=== PATIENT | female | born 1960 | race African-American/Black ===

== ENCOUNTER → 2018-04-02 08:10 | Outpatient (CLI) | payer BC, SELFPAY ==
[2018-04-02 10:39] LABS: ALB/GLOB Ratio 0.7 RATIO (0.9-2.4); AST(SGOT) 19 U/L (15-37); Alanine Aminotransfer ALT/SGPT 31 U/L (13-56); Albumin, Serum 3.3 g/dL (3.2-5.0); Alkaline Phosphatase 97 U/L (45-117); Anion Gap 11 (5-15); BUN 14 mg/dL (7-18); BUN/Creat Ratio 16.8 RATIO (10-20); Calcium,Total 8.8 mg/dL (8.5-10.1); Chloride 105 mmol/L (98-107); Cholesterol 155 mg/dL (200); Creatinine, Serum 0.83 mg/dL (0.55-1.02); EST Glomerular Filtration Rate 75 mL/min (>60); Est Glom Filt Rate - Afr Amer 90 mL/min (>60); Globulin 4.8 g/dL (2.2-4.2); Glucose 168 mg/dL (74-106); High Density Lipoprotein 46 mg/dL; Potassium 3.9 mmol/L (3.5-5.1); Protein, Total 8.1 g/dL (6.4-8.2); Sodium Level 142 mmol/L (136-145); Thyroid Stim Hormone (TSH) 1.79 uIU/mL (0.358-3.74); Triglycerides 133 mg/dL; Uric Acid 6.8 mg/dL (2.6-6.0); Very Low Density Lipoprotein 27 mg/dL (5-40)
== END ==
PROVIDERS: Family Provider Family Medicine; PCP Family Medicine; Visit Provider Family Medicine
DX: E11.9 Type 2 diabetes mellitus without complications (principal); M10.9 Gout, unspecified
CPT/HCPCS: 36415; 80053; 80061; 84443; 84550

== ENCOUNTER → 2018-10-01 09:47 | Outpatient (CLI) | payer BC, SELFPAY ==
[2018-10-01 13:19] LABS: ALB/GLOB Ratio 0.9 RATIO (0.9-2.4); AST(SGOT) 16 U/L (15-37); Alanine Aminotransfer ALT/SGPT 30 U/L (13-56); Albumin, Serum 3.6 g/dL (3.2-5.0); Alkaline Phosphatase 89 U/L (45-117); Anion Gap 8 (5-15); BUN 9 mg/dL (7-18); Calcium,Total 8.7 mg/dL (8.5-10.1); Chloride 106 mmol/L (98-107); Cholesterol 134 mg/dL (200); Creatinine, Serum 0.69 mg/dL (0.55-1.02); EST Glomerular Filtration Rate 92 mL/min (>60); Est Glom Filt Rate - Afr Amer 112 mL/min (>60); Globulin 4.2 g/dL (2.2-4.2); Glucose 128 mg/dL (74-106); High Density Lipoprotein 50 mg/dL; Protein, Total 7.8 g/dL (6.4-8.2); Sodium Level 141 mmol/L (136-145); Triglycerides 123 mg/dL; Very Low Density Lipoprotein 25 mg/dL (5-40)
== END ==
PROVIDERS: Family Provider Family Medicine; PCP Family Medicine; Referring Provider Family Medicine; Visit Provider Family Medicine
DX: E11.9 Type 2 diabetes mellitus without complications (principal)
CPT/HCPCS: 36415; 80053; 80061

== ENCOUNTER → 2019-08-17 07:13 | Outpatient (CLI) | payer BC, SELFPAY ==
[2019-08-17 10:58] LABS: ALB/GLOB Ratio 0.7 RATIO (0.9-2.4); AST(SGOT) 31 U/L (15-37); Alanine Aminotransfer ALT/SGPT 48 U/L (13-56); Albumin, Serum 3.3 g/dL (3.2-5.0); Alkaline Phosphatase 64 U/L (45-117); Anion Gap 6 (5-15); BUN 7 mg/dL (7-18); BUN/Creat Ratio 8.4 RATIO (10-20); Calcium,Total 8.8 mg/dL (8.5-10.1); Chloride 108 mmol/L (98-107); Cholesterol 122 mg/dL (200); Creatinine, Serum 0.83 mg/dL (0.55-1.02); EST Glomerular Filtration Rate 74 mL/min (>60); Est Glom Filt Rate - Afr Amer 90 mL/min (>60); Globulin 4.8 g/dL (2.2-4.2); Glucose 137 mg/dL (74-106); High Density Lipoprotein 45 mg/dL; Potassium 3.5 mmol/L (3.5-5.1); Protein, Total 8.1 g/dL (6.4-8.2); Sodium Level 141 mmol/L (136-145); Thyroid Stim Hormone (TSH) 1.99 uIU/mL (0.358-3.74); Triglycerides 124 mg/dL; Uric Acid 5.6 mg/dL (2.6-6.0); Very Low Density Lipoprotein 25 mg/dL (5-40)
== END ==
LOC: MTLAB 07:14
PROVIDERS: PCP Family Medicine; Referring Provider Family Medicine; Visit Provider Family Medicine
DX: E11.9 Type 2 diabetes mellitus without complications (principal); M10.9 Gout, unspecified
CPT/HCPCS: 36415; 80053; 80061; 84443; 84550

== ENCOUNTER → 2022-01-12 | Outpatient (CLI) | payer BC, SELFPAY ==
--- NOTE | 2022-01-12 12:19 | BI_ITS ---
MAMMOGRAPHY - BILATERAL SCREENING REASON FOR EXAM: Female, 61 years old. Routine annual screening examination. PERTINENT HISTORY: Sister with breast cancer. History of prior right stereotactic breast biopsy. TECHNIQUE: Digital bilateral breast leela (3D mammographic acquisition) in the CC and MLO projections. 2-D mediolateral oblique (MLO) and craniocaudad (CC) views of both breasts were obtained. CAD: Full Field Digital Mammography with Computer Added Detection was performed. COMPARISON: Comparison is made with prior examination dated 05/24/2015. FINDINGS: Breast Composition: There are scattered areas of fibroglandular density. There are no dominant masses or suspicious calcifications. Stable benign-appearing bilateral axillary lymph nodes. A tissue clip marker is seen in the slightly upper lateral aspect of the right breast. No other significant abnormalities are identified. There has been no significant change since the prior study. BI/SCRN MAMM (CAD)W/LEELA BILAT IMPRESSION: Stable bilateral screening mammogram. Yearly follow-up mammogram recommended. (A) ASSESSMENT CATEGORY: BIRADS Category 2: Benign. A letter regarding these results will be sent to the patient by the facility within 30 days. Approximately 10% of breast cancers are not detected by mammography. A normal mammogram should not delay biopsy of a clinically suspicious abnormality. [id number] Electronically Signed: Dash Tony MD at 13:50 EDT ,
== END | disposition home or self-care (01) ==
PROVIDERS: PCP Family Medicine; Visit Provider Family Medicine
DX: Z12.31 Encounter for screening mammogram for malignant neoplasm of breast (principal)
CPT/HCPCS: 77063; 77067

== ENCOUNTER → 2022-01-16 | Outpatient (CLI) | payer BC, SELFPAY ==
[2022-01-16 12:18] LABS: Hematocrit 38.3 % (37-47); Hemoglobin 12.2 g/dL (12.0-15.0); Mean Corp Hgb Conc 31.9 g/dL (32-36); Mean Corpuscular Hgb 28.6 pg (27.0-32.0); Mean Corpuscular Volume 89.7 fL (81-99); Mean Platelet Vol. 12.1 fl (6.2-12.0); Platelet Count 205 K/mm3 (150-450); RBC Distribution Width CV 13.8 % (11.6-14.6); RBC Distribution Width SD 45.1 fl (35.1-43.9); Red Blood Count 4.27 M/mm3 (4.2-5.4); White Blood Count 7.1 K/mm3 (4.4-11.0)
[2022-01-16 12:37] LABS: Vitamin B12 822 pg/mL (211-911); Vitamin D,25 Hydroxy 90.8 ng/mL
[2022-01-16 12:42] LABS: ALB/GLOB Ratio 0.7 RATIO (0.9-2.4); AST(SGOT) 24 U/L (15-37); Alanine Aminotransfer ALT/SGPT 37 U/L (13-56); Albumin, Serum 3.3 g/dL (3.2-5.0); Alkaline Phosphatase 67 U/L (45-117); Anion Gap 8 (5-15); BUN 18 mg/dL (7-18); BUN/Creat Ratio 19.2 RATIO (10-20); Chloride 103 mmol/L (98-107); Cholesterol 153 mg/dL (200); Creatinine, Serum 0.94 mg/dL (0.55-1.02); EST Glomerular Filtration Rate 65 mL/min (>60); Est Glom Filt Rate - Afr Amer 78 mL/min (>60); Globulin 4.7 g/dL (2.2-4.2); Glucose 177 mg/dL (74-106); High Density Lipoprotein 47 mg/dL; Potassium 3.8 mmol/L (3.5-5.1); Sodium Level 138 mmol/L (136-145); Thyroid Stim Hormone (TSH) 2.16 uIU/mL (0.358-3.74); Triglycerides 182 mg/dL; Very Low Density Lipoprotein 36 mg/dL (5-40)
== END | disposition home or self-care (01) ==
LOC: MFPLAB 08:28
PROVIDERS: PCP Family Medicine; Visit Provider Family Medicine
DX: E11.59 Type 2 diabetes mellitus with other circulatory complications (principal); E11.65 Type 2 diabetes mellitus with hyperglycemia; M10.9 Gout, unspecified; E55.9 Vitamin D deficiency, unspecified
CPT/HCPCS: 36415; 80053; 80061; 82306; 82607; 84443; 84550; 85027

== ENCOUNTER → 2022-05-16 | Outpatient (CLI) | payer BC, SELFPAY ==
[2022-05-16 10:37] LABS: Vitamin B12 650 pg/mL (211-911); Vitamin D,25 Hydroxy 90.9 ng/mL
[2022-05-16 10:52] LABS: ALB/GLOB Ratio 0.7 RATIO (0.9-2.4); AST(SGOT) 18 U/L (15-37); Alanine Aminotransfer ALT/SGPT 27 U/L (13-56); Albumin, Serum 3.5 g/dL (3.2-5.0); Alkaline Phosphatase 67 U/L (45-117); Anion Gap 6 (5-15); BUN 19 mg/dL (7-18); BUN/Creat Ratio 20.5 RATIO (10-20); Calcium,Total 9.5 mg/dL (8.5-10.1); Chloride 105 mmol/L (98-107); Creatinine, Serum 0.93 mg/dL (0.55-1.02); EST Glomerular Filtration Rate 65 mL/min (>60); Est Glom Filt Rate - Afr Amer 79 mL/min (>60); Globulin 4.7 g/dL (2.2-4.2); Glucose 112 mg/dL (74-106); Potassium 3.9 mmol/L (3.5-5.1); Protein, Total 8.2 g/dL (6.4-8.2); Sodium Level 138 mmol/L (136-145); Uric Acid 8.6 mg/dL (2.6-6.0)
== END | disposition home or self-care (01) ==
LOC: MFPLAB 08:59
PROVIDERS: PCP Family Medicine; Referring Provider Family Medicine; Visit Provider Family Medicine
DX: I10 Essential (primary) hypertension (principal); E55.9 Vitamin D deficiency, unspecified
CPT/HCPCS: 36415; 80053; 82306; 82607; 84550

== ENCOUNTER → 2022-11-14 | Outpatient (CLI) | payer BC, SELFPAY ==
[2022-11-14 11:15] LABS: ALB/GLOB Ratio 0.7 RATIO (0.9-2.4); AST(SGOT) 24 U/L (15-37); Alanine Aminotransfer ALT/SGPT 35 U/L (13-56); Albumin, Serum 3.4 g/dL (3.2-5.0); Alkaline Phosphatase 75 U/L (45-117); Anion Gap 5 (5-15); BUN 15 mg/dL (7-18); Calcium,Total 9.7 mg/dL (8.5-10.1); Chloride 104 mmol/L (98-107); Cholesterol 170 mg/dL (200); Creatinine, Serum 0.94 mg/dL (0.55-1.02); EST Glomerular Filtration Rate 64 mL/min (>60); Est Glom Filt Rate - Afr Amer 78 mL/min (>60); Globulin 4.8 g/dL (2.2-4.2); Glucose 109 mg/dL (74-106); High Density Lipoprotein 61 mg/dL; Protein, Total 8.2 g/dL (6.4-8.2); Sodium Level 136 mmol/L (136-145); Thyroid Stim Hormone (TSH) 1.77 uIU/mL (0.358-3.74); Triglycerides 97 mg/dL; Uric Acid 5.2 mg/dL (2.6-6.0); Very Low Density Lipoprotein 19 mg/dL (5-40)
== END | disposition home or self-care (01) ==
LOC: MFPLAB 08:53
PROVIDERS: PCP Family Medicine; Visit Provider Family Medicine
DX: M10.9 Gout, unspecified (principal)
CPT/HCPCS: 36415; 80053; 80061; 84443; 84550

== ENCOUNTER → 2023-05-22 | Outpatient (CLI) | payer BC, SELFPAY ==
[2023-05-22 12:52] LABS: Microalbumin,Random Urine 16.9 mg/L (NO RANGE EST.)
[2023-05-22 12:56] LABS: Vitamin B12 625 pg/mL (211-911); Vitamin D,25 Hydroxy 77.8 ng/mL
[2023-05-22 13:08] LABS: Anion Gap 6 (5-15); BUN 18 mg/dL (7-18); BUN/Creat Ratio 20.7 RATIO (10-20); Calcium,Total 9.4 mg/dL (8.5-10.1); Chloride 106 mmol/L (98-107); Creatinine, Serum 0.87 mg/dL (0.55-1.02); EST Glomerular Filtration Rate 70 mL/min (>60); Est Glom Filt Rate - Afr Amer 84 mL/min (>60); Glucose 111 mg/dL (74-106); Sodium Level 140 mmol/L (136-145); Thyroid Stim Hormone (TSH) 1.46 uIU/mL (0.358-3.74)
== END | disposition home or self-care (01) ==
PROVIDERS: PCP Family Medicine; Referring Provider Family Medicine; Visit Provider Family Medicine
DX: Z00.00 Encounter for general adult medical examination without abnormal findings (principal); E55.9 Vitamin D deficiency, unspecified; E53.8 Deficiency of other specified B group vitamins
CPT/HCPCS: 36415; 80048; 82043; 82306; 82607; 84443

== ENCOUNTER → 2023-10-03 | Outpatient (CLI) | payer BC, SELFPAY ==
[2023-10-03 13:55] LABS: White Blood Cells 0 SEEN /hpf (0-5)
[2023-10-03 13:57] LABS: Mucous, Urine 0 SEEN /hpf (<or=2+)
[2023-10-03 15:45] LABS: Color, Urine Yellow (Yellow); Glucose, Dipstick Normal (Normal); Ketone-Dipstick Negative (Negative); Leukocyte Esterase-Dipstick 25 /ul (Negative); Nitrite-Dipstick Negative (Negative); Occult Blood-Urine 250 /ul (Negative); Protein-Dipstick 15 mg/dl (Negative); Specific Gravity, Urine 1.015 (1.002-1.030); Urine Bilirubin Dipstick Negative (Negative); Urine Clarity Sl. Cloudy (Clear); Urine Urobilinogen Normal (Normal); Urine pH 6.5 (5.0 - 8.0)
[2023-10-03 15:57] LABS: Bacteria RARE /hpf (None Seen); Red Blood Cells-Urine 25-50 SEEN /hpf (0-5); Squamous Epithelial Cells - UA 0-5 SEEN /hpf (5-10)
== END | disposition home or self-care (01) ==
LOC: MFPLAB 13:55
PROVIDERS: PCP Family Medicine; Visit Provider Family Medicine
DX: R31.9 Hematuria, unspecified (principal)
CPT/HCPCS: 36415; 81001; 87086; 87088

== ENCOUNTER → 2024-06-16 | Outpatient (CLI) | payer BC, SELFPAY ==
[2024-06-16 12:58] LABS: Vitamin B12 1006 pg/mL (211-911); Vitamin D,25 Hydroxy 77.9 ng/mL
[2024-06-16 13:10] LABS: ALB/GLOB Ratio 0.8 RATIO (0.9-2.4); AST(SGOT) 24 U/L (15-37); Alanine Aminotransfer ALT/SGPT 29 U/L (13-56); Albumin, Serum 3.6 g/dL (3.2-5.0); Alkaline Phosphatase 79 U/L (45-117); Anion Gap 6 (5-15); BUN 10 mg/dL (7-18); BUN/Creat Ratio 12.1 RATIO (10-20); Calcium,Total 9.1 mg/dL (8.5-10.1); Chloride 108 mmol/L (98-107); Cholesterol 148 mg/dL (200); Creatinine, Serum 0.82 mg/dL (0.55-1.02); EST Glomerular Filtration Rate 74 mL/min (>60); Est Glom Filt Rate - Afr Amer 90 mL/min (>60); Globulin 4.6 g/dL (2.2-4.2); Glucose 76 mg/dL (74-106); High Density Lipoprotein 63 mg/dL; Potassium 3.8 mmol/L (3.5-5.1); Protein, Total 8.2 g/dL (6.4-8.2); Sodium Level 140 mmol/L (136-145); Triglycerides 113 mg/dL; Uric Acid 4.6 mg/dL (2.6-6.0); Very Low Density Lipoprotein 23 mg/dL (5-40)
== END | disposition home or self-care (01) ==
PROVIDERS: PCP Family Medicine; Visit Provider Family Medicine
DX: E11.22 Type 2 diabetes mellitus with diabetic chronic kidney disease (principal); E55.9 Vitamin D deficiency, unspecified; M10.9 Gout, unspecified; N18.9 Chronic kidney disease, unspecified
CPT/HCPCS: 36415; 80053; 80061; 82306; 82607; 84443; 84550

== ENCOUNTER 2025-02-15 08:00 | Outpatient (RCR) | payer BC, SELFPAY ==
[2025-02-15 08:23] VITALS: BP 189/94; PULSE 83; RESP 14; TEMP 36.4
--- NOTE | 2025-02-15 09:02 | HP.PCM_ITS ---
History of Present Illness Date of Service: 02/15/25 History of Wound: The patient is a 64-year-old female presenting with hidr adenitis suppurativa. The condition involves purulent drainage from lesions on the right upper back, persisting for about two months. She has been seeing Dr. Guerrero from [facility] dermatology for the condition, and 2 weeks ago he began her on a course of oral doxycycline and topical clindamycin gel. He referred her to us for definitive management of the sinus tracts. She has a history of diabetes mellitus, with an A1c of 6.7, managed with metformin and Ozempic. Her hypertension is controlled with lisinopril, though she missed her dose on the day of the visit, leading to elevated readings. ROS: - Dermatological: Reports purulent drainage from lesions on the right upper back. - Endocrine: Reports diabetes mellitus, denies recent hypoglycemic episodes. - Cardiovascular: Reports hypertension, denies chest pain or palpitations. Attestation: Documentation on this patient encounter was supported using ambient scribe technology/ voice AI technology. The patient consented to recording for the purpose of documenting the encounter. Provider reviewed content of the generated note prior to signature. [facility] Allergy/AdvReac Type Severity Reaction Status Date / Time acetaminophen (From Percocet) Allergy Intermediate Hives Verified 02/15/25 08:35 oxycodone (From Percocet) Allergy Intermediate Hives Verified 02/15/25 08:35 Vital Signs Vital Signs Vital Signs: 02/15/25 08:23 Temperature 97.6 F L Temperature Source Temporal Pulse Rate 83 Respiratory Rate 14 Blood Pressure 189/94 H Blood Pressure Mean 125 Blood Pressure Source Monitor Blood Pressure Position Semi-Fowlers Blood Pressure Location Right Arm Physical Exam Narrative - Skin: 4 x 3 cm area of induration and fluctuance with purulent drainage on the right upper back, consistent with hidradenitis suppurativa. Debridement Note Debridement Note Post-Debridement Measurements and Additional Note: Post-Debridement Measurements/Treatment - Nurse 1 - General Ulcer Assessment Start: 02/15/25 08:23 Freq: Status: Active Protocol: JOHNNIE Activity Type Activity Date Activity User E-sign Co-sign Detail Recorded Client Recorded Date Recorded By Document 02/15/25 08:23 ML [id number] 02/15/25 08:30 ML 02/15/25 08:23 WC - Today's Visit Information Type of service Initial Visit Arrival Mode Ambulatory Patient Identification Verified (Name & Yes ) Patient Requires Transmission-Based No Precautions Vital Signs Temperature (97.8 F-99.1 F) 97.6 F L Temperature Source Temporal Pulse Rate (60-100) 83 Pulse Location Monitor Respiratory Rate (12-18) 14 Respiratory rate source Monitor Blood Pressure (90/60-120/80) 189/94 H Blood Pressure Mean 125 Source Monitor Position Semi-Fowlers Blood Pressure Location Right Arm Pain Scale: 0-10 Numeric Is Patient Pain Free? Yes - Nurse 1 - General Ulcer Measurement Start: 02/15/25 08:23 Freq: Status: Active Protocol: Activity Type Activity Date Activity User E-sign Co-sign Detail Recorded Client Recorded Date Recorded By Document 02/15/25 08:23 ML [id number] 02/15/25 08:30 ML 02/15/25 08:23 Wound Center Nurse 1 Right upper back -Current Size (cm) - Length 0.1 -Current Size (cm) - Width 0.1 -Current Size (cm) - Depth 0.2 -Total Square Cm 0.01 -Exudate Type Yellow/Green -Granulation Amt Medium (34-66%) -Necrotic Tissue Type Adherent Slough -Texture (Lorena-wound Skin Appearance) Assessed -Moisture (Lorena-wound Skin Appearance) Assessed -Color (Lorena-wound Skin Appearance) Assessed -Temperature (Lorena-wound Skin No Abnormality Appearance) (Pt Warm) -Tenderness on Palpation (Lorena-wound Yes Skin Appearance) -Ulcer Cleansing Rinsed/ Irrigated with Saline -Foul Odor after Cleansing No -Anesthetic Used 5% Lidocaine Gel WC - Nurse 2 - General Ulcer CM Notes Start: 02/15/25 08:23 Freq: Status: Active Protocol: Activity Type Activity Date Activity User E-sign Co-sign Detail Recorded Client Recorded Date Recorded By Document 02/15/25 08:38 DS [id number] 02/15/25 08:47 DS 02/15/25 08:38 Wound Center Nurse 2 -Time 08:38 -Correct Patient Yes -Correct Side, Site, Position Yes -Procedure Performed No -Post Debridement (cm) - Length 4.0 -Post Debridement (cm) - Width 3.0 -Total Square (Post) (cm) 12.00 -Area of Debridement (cm) - Length 4.0 -Area of Debridement (cm) - Width 3.0 -Total Square (Area) (cm) 12.00 -Tunneling No -Undermining/Tunneling No -Circular Undermining No -Wound/Ulcer Outcome Not Healed -Foul Odor after Cleansing No -Bioengineered Tissue No Pain Scale: 0-10 Numeric Is Patient Pain Free? Yes WC - Nurse 3 - General Ulcer D/C NN Start: 02/15/25 08:23 Freq: Status: Active Protocol: Activity Type Activity Date Activity User E-sign Co-sign Detail Recorded Client Recorded Date Recorded By Document 02/15/25 08:48 DS [id number] 02/15/25 08:48 DS 02/15/25 08:48 Wound Care Center Nurse 3 Right upper back -Primary Dressing Covered/Secured with Dry Gauze, Secured with Tape Pain Scale: 0-10 Numeric Is Patient Pain Free? Yes WC - Visit Discharge Discharge Condition Stable Ambulatory Status Ambulatory Transportation Private Auto Charges/Coding Visit Charges Office Visits / Consults: 85014 OV L3 New 30min Assessment/Plan Assessment/Plan (1) Hidradenitis suppurativa: CODE(S): L73.2 - Hidradenitis suppurativa PLAN: Plan Assessment and Plan The patient is a 64-year-old female with a history of hidradenitis suppurativa presenting with persistent lesions on the right upper back. The lesions are characterized by purulent drainage and have been present for approximately two months, despite antibiotic therapy with doxycycline. The patient also has diabet es mellitus, with a recent A1c of 6.7, managed with metformin and Ozempic, and hypertension managed with lisinopril, though she missed her dose on the day of the visit. 1. Hidradenitis Suppurativa The plan involves continuing doxycycline and maintaining dressing for drainage. A debridement procedure is considered to address the sinus tract and promote healing from the inside out. Follow-up is scheduled in two weeks to reassess the condition and potentially demonstrate wound care techniques to the patient's who could help with dressing changes after the opening of the wound bed. Patient is in agreement with this plan to defer debridement from today to the appointment in 2 weeks when her spouse could be taught wound care. She was given strict return precautions and told to go to the emergency department if she develops fevers chills or systemic signs of infection. At this point the area is a chronic scarred sinus tract from hidradenitis and not an acute abscess. 2. Diabetes Mellitus The patient's diabetes is managed with metformin and Ozempic, with a recent A1c of 6.7. No changes to the current management plan were discussed during the visit. 3. Hypertension I advised her to go to the emergency department today as her blood pressure was too elevated, however she elected to go home instead and take her medicine.
--- NOTE | 2025-02-15 09:02 | HP.PCM_ITS ---
History of Present Illness Date of Service: 02/15/25 History of Wound: The patient is a 64-year-old female presenting with hidr adenitis suppurativa. The condition involves purulent drainage from lesions on the right upper back, persisting for about two months. She has been seeing Dr. Guerrero from [facility] dermatology for the condition, and 2 weeks ago he began her on a course of oral doxycycline and topical clindamycin gel. He referred her to us for definitive management of the sinus tracts. She has a history of diabetes mellitus, with an A1c of 6.7, managed with metformin and Ozempic. Her hypertension is controlled with lisinopril, though she missed her dose on the day of the visit, leading to elevated readings. ROS: - Dermatological: Reports purulent drainage from lesions on the right upper back. - Endocrine: Reports diabetes mellitus, denies recent hypoglycemic episodes. - Cardiovascular: Reports hypertension, denies chest pain or palpitations. Attestation: Documentation on this patient encounter was supported using ambient scribe technology/ voice AI technology. The patient consented to recording for the purpose of documenting the encounter. Provider reviewed content of the generated note prior to signature. [facility] Allergy/AdvReac Type Severity Reaction Status Date / Time acetaminophen (From Percocet) Allergy Intermediate Hives Verified 02/15/25 08:35 oxycodone (From Percocet) Allergy Intermediate Hives Verified 02/15/25 08:35 Vital Signs Vital Signs Vital Signs: 02/15/25 08:23 Temperature 97.6 F L Temperature Source Temporal Pulse Rate 83 Respiratory Rate 14 Blood Pressure 189/94 H Blood Pressure Mean 125 Blood Pressure Source Monitor Blood Pressure Position Semi-Fowlers Blood Pressure Location Right Arm Physical Exam Narrative - Skin: 4 x 3 cm area of induration and fluctuance with purulent drainage on the right upper back, consistent with hidradenitis suppurativa. Debridement Note Debridement Note Post-Debridement Measurements and Additional Note: Post-Debridement Measurements/Treatment - Nurse 1 - General Ulcer Assessment Start: 02/15/25 08:23 Freq: Status: Active Protocol: JOHNNIE Activity Type Activity Date Activity User E-sign Co-sign Detail Recorded Client Recorded Date Recorded By Document 02/15/25 08:23 ML [id number] 02/15/25 08:30 ML 02/15/25 08:23 WC - Today's Visit Information Type of service Initial Visit Arrival Mode Ambulatory Patient Identification Verified (Name & Yes ) Patient Requires Transmission-Based No Precautions Vital Signs Temperature (97.8 F-99.1 F) 97.6 F L Temperature Source Temporal Pulse Rate (60-100) 83 Pulse Location Monitor Respiratory Rate (12-18) 14 Respiratory rate source Monitor Blood Pressure (90/60-120/80) 189/94 H Blood Pressure Mean 125 Source Monitor Position Semi-Fowlers Blood Pressure Location Right Arm Pain Scale: 0-10 Numeric Is Patient Pain Free? Yes - Nurse 1 - General Ulcer Measurement Start: 02/15/25 08:23 Freq: Status: Active Protocol: Activity Type Activity Date Activity User E-sign Co-sign Detail Recorded Client Recorded Date Recorded By Document 02/15/25 08:23 ML [id number] 02/15/25 08:30 ML 02/15/25 08:23 Wound Center Nurse 1 Right upper back -Current Size (cm) - Length 0.1 -Current Size (cm) - Width 0.1 -Current Size (cm) - Depth 0.2 -Total Square Cm 0.01 -Exudate Type Yellow/Green -Granulation Amt Medium (34-66%) -Necrotic Tissue Type Adherent Slough -Texture (Lorena-wound Skin Appearance) Assessed -Moisture (Lorena-wound Skin Appearance) Assessed -Color (Lorena-wound Skin Appearance) Assessed -Temperature (Lorena-wound Skin No Abnormality Appearance) (Pt Warm) -Tenderness on Palpation (Lorena-wound Yes Skin Appearance) -Ulcer Cleansing Rinsed/ Irrigated with Saline -Foul Odor after Cleansing No -Anesthetic Used 5% Lidocaine Gel WC - Nurse 2 - General Ulcer CM Notes Start: 02/15/25 08:23 Freq: Status: Active Protocol: Activity Type Activity Date Activity User E-sign Co-sign Detail Recorded Client Recorded Date Recorded By Document 02/15/25 08:38 DS [id number] 02/15/25 08:47 DS 02/15/25 08:38 Wound Center Nurse 2 -Time 08:38 -Correct Patient Yes -Correct Side, Site, Position Yes -Procedure Performed No -Post Debridement (cm) - Length 4.0 -Post Debridement (cm) - Width 3.0 -Total Square (Post) (cm) 12.00 -Area of Debridement (cm) - Length 4.0 -Area of Debridement (cm) - Width 3.0 -Total Square (Area) (cm) 12.00 -Tunneling No -Undermining/Tunneling No -Circular Undermining No -Wound/Ulcer Outcome Not Healed -Foul Odor after Cleansing No -Bioengineered Tissue No Pain Scale: 0-10 Numeric Is Patient Pain Free? Yes WC - Nurse 3 - General Ulcer D/C NN Start: 02/15/25 08:23 Freq: Status: Active Protocol: Activity Type Activity Date Activity User E-sign Co-sign Detail Recorded Client Recorded Date Recorded By Document 02/15/25 08:48 DS [id number] 02/15/25 08:48 DS 02/15/25 08:48 Wound Care Center Nurse 3 Right upper back -Primary Dressing Covered/Secured with Dry Gauze, Secured with Tape Pain Scale: 0-10 Numeric Is Patient Pain Free? Yes WC - Visit Discharge Discharge Condition Stable Ambulatory Status Ambulatory Transportation Private Auto Charges/Coding Visit Charges Office Visits / Consults: 76412 OV L3 New 30min Assessment/Plan Assessment/Plan (1) Hidradenitis suppurativa: CODE(S): L73.2 - Hidradenitis suppurativa PLAN: Plan Assessment and Plan The patient is a 64-year-old female with a history of hidradenitis suppurativa presenting with persistent lesions on the right upper back. The lesions are characterized by purulent drainage and have been present for approximately two months, despite antibiotic therapy with doxycycline. The patient also has diabet es mellitus, with a recent A1c of 6.7, managed with metformin and Ozempic, and hypertension managed with lisinopril, though she missed her dose on the day of the visit. 1. Hidradenitis Suppurativa The plan involves continuing doxycycline and maintaining dressing for drainage. A debridement procedure is considered to address the sinus tract and promote healing from the inside out. Follow-up is scheduled in two weeks to reassess the condition and potentially demonstrate wound care techniques to the patient's who could help with dressing changes after the opening of the wound bed. Patient is in agreement with this plan to defer debridement from today to the appointment in 2 weeks when her spouse could be taught wound care. She was given strict return precautions and told to go to the emergency department if she develops fevers chills or systemic signs of infection. At this point the area is a chronic scarred sinus tract from hidradenitis and not an acute abscess. 2. Diabetes Mellitus The patient's diabetes is managed with metformin and Ozempic, with a recent A1c of 6.7. No changes to the current management plan were discussed during the visit. 3. Hypertension I advised her to go to the emergency department today as her blood pressure was too elevated, however she elected to go home instead and take her medicine.
--- NOTE | 2025-02-16 09:25 | WC ---
PHOTO-RIGHT UPPER BACK 02/15/25
--- NOTE | 2025-02-16 09:25 | WC ---
PHOTO-RIGHT UPPER BACK 02/15/25
== END 2025-02-18 23:59 | disposition home or self-care (01) ==
LOC: WC 08:00
PROVIDERS: PCP Family Medicine; Referring Provider Dermatology; Visit Provider Surgery Plastic and Reconstructive Surgery
DX: L73.2 Hidradenitis suppurativa (principal); E11.9 Type 2 diabetes mellitus without complications; L90.5 Scar conditions and fibrosis of skin; I10 Essential (primary) hypertension; Z79.84 Long term (current) use of oral hypoglycemic drugs; Z79.85 Long-term (current) use of injectable non-insulin antidiabetic drugs; Z79.899 Other long term (current) drug therapy
CPT/HCPCS: 99213; G0463

== ENCOUNTER → 2025-02-23 | Outpatient (CLI) | payer BC, SELFPAY ==
--- NOTE | 2025-02-23 12:26 | US_ITS ---
PROCEDURE: BREAST LIMITED UNILATERAL 02/23/2025 REASON FOR EXAM: F, Age 65 y/o , ABNOMRAL MAMMOGRAM FROM [facility] ON 01/01/25 COMPARISON: Prior mammogram dated January 01, 2025.. TECHNIQUE: BREAST LIMITED UNILATERAL. The retroareolar region of the left breast was examined with ultrasound. FINDINGS: In the retroareolar region, there is a 6 mm x 10 mm x 5 mm cyst. Low-level echoes are seen within it. Percutaneous drainage recommended. US/Breast Limited Unilateral IMPRESSION: 6 mm x 10 mm x 5 mm cyst in the retroareolar region of the left breast with low -level echoes within it. Tissue sampling recommended. BI-RADS 4: SUSPICIOUS RECOMMENDATION: Biopsy Recommended Reading Location: [id number]
== END | disposition home or self-care (01) ==
LOC: OPUS 12:24
PROVIDERS: PCP Family Medicine; Referring Provider Family Medicine; Visit Provider Family Medicine
DX: R92.8 Other abnormal and inconclusive findings on diagnostic imaging of breast (principal)
CPT/HCPCS: 76642

== ENCOUNTER → 2025-03-02 | Outpatient (CLI) | payer BC, SELFPAY ==
--- NOTE | 2025-03-02 08:20 | BRBX_PTH ---
PATIENT: DEE HEALY LOC: [facility] U#:[id number] AGE/SX: 65/F ROOM: RE03/02/[address]: Dr. Dhaval Mccarthy MD : 1960 BED: DIS: 03/02/2025 SPEC #: [id number] RECD: 03/02/25 09:33 STATUS: MUNA REMiley #: [id number] HEBER: 03/02/25 08:[address]: Dhaval Mccarthy DEPT: SURGICAL PATHOLOGY RECD BY: Daniel Rehman ENTERED: 03/02/25 10:26 SP TYPE: BREAST BX OTHR DR: Dr. Wilian Sampson MD Tissues: A - Left breast, NOS Procedures: Surgery Specimen Level IV HEADER OPERATION: Left breast biopsy PRE-OP DIAGNOSIS: Left breast TISSUE SUBMITTED: A- Left breast tissue MICROSCOPIC DIAGNOSIS A. Left breast, core biopsy: - Fibroadipose tissue with scant breast elements and abundant blood clot. - Negative for malignancy. MICROSCOPIC DESCRIPTION Slides are reviewed. GROSS DESCRIPTION A. Received in formalin labeled with the patient's name and date of . Designated as L breast is a 2.6 x 1.5 x 0.2 cm aggregate of steiner tissue cores and clotted blood. Entirely submitted in 1 cassette. Cold ischemic time: <1-minuteFormalin fixation time: 11 hours, 10 minutes DE 03/02/2025 CPT:[id number]
--- OUTSIDE RECORDS SUMMARY | 2025-03-02 18:53 | XMS RPT_ITS | CCD ---
Author Organization [facility] Care Team Providers Care Painting Worker Name Role Phone PROVIDER, UNKNOWN Unavailable Unavailable Annalise Sampson Unavailable Unavailable Nina Howe Unavailable Unavailable PROVIDER, UNKNOWN Unavailable Unavailable Annalise Sampson Unavailable Unavailable Raymond Rogers Unavailable Unavailable PROVIDER, UNKNOWN Unavailable Unavailable Annalise Sampson Unavailable Unavailable Raymond Rogers Unavailable Unavailable Adrián GRIFFITH, Annalise Lei Primary Care Provider ANNALISE SAMPSON Primary Care UnavailANNALISE Wiseman Primary Care UnavailNINA Ricks Attending Unavailable Dr. Annalise Sampson MD Primary Care Provider Dr. Raul Poon MD Attending Provider Dr. Chava Guerrero MD Referring Provider Dr. Raul Poon MD Other Provider Dr. Annalise Sampson MD Attending Provider Dr. Annalise Sampson MD Referring Provider Annalise Sampson Primary Care Unavailable Annalise Sampson Attending Unavailable Chava Guerrero Referring Unavailable Raul Poon Attending Unavailable Annalise Sampson Primary Care Unavailable Annalise Sampson Primary Care Unavailable Chava Guerrero Referring Unavailable Raul Poon Attending Unavailable Chava Guerrero Referring Unavailable Raul Poon Consulting Unavailable Raul Poon Attending Unavailable Annalise Sampson Primary Care Unavailable Annalise Sampson Attending Unavailable Annalise Sampson Referring Unavailable Annalise Sampson Primary Care Unavailable Shari GRIFFITH, Dr. Puentes Attending Provider Allergies Allergy Classification Reported Allergen(s) Allergy Type Date of Onset Reaction(s) Facility (6 sources) Acetaminophen / oxyCODONE; Translations: [OXYCODONE-ACETAMI NOPHEN] Drug Allergy 05-07-2007 [facility] (3 sources) Acetaminophen Drug Allergy 02-15-2025 [facility] Comment on above: itching (3 sources) oxyCODONE Drug Allergy 02-15-2025 [facility] Comment on above: itching (1 source) Acetaminophen Drug Allergy 02-15-2025 [facility] (1 source) oxyCODONE Drug Allergy 02-15-2025 [facility] Medications Current Medications Medication Drug Class(es) Dates Sig (Normalized) Sig (Original) acetaminophen 500 mg / HYDROcodone bitartrate 5 mg oral tablet (5 sources) Opioid Agonist Start: 05-07-2007 take 1 tablet by mouth every four hours as needed acetaminophen-hydr ocodone 5-500 mg ORAL Tab 1 TO 2 PO Q 4 HOURS PRN 30 0 05/07/2007 Active allopurinol 300 mg oral tablet (8 sources) Xanthine Oxidase Inhibitor Start: 02-15-2025 take 1 tablet by mouth once daily Allopurinol 300 mg tablet Active 300 mg PO DAILY February 15, 2025 12:00am Start: 12-20-2015 allopurinol (Z YLOPRIM) 100 mg tablet 12/20/2015 Active amoxicillin 875 mg / clavulanate 125 mg oral tablet (1 source) Penicillin-class Antibacterial Start: 01-24-2025 End: 02-03-2025 take 1 tablet by mouth twice daily amoxicillin-clavulanate potassium (AUGMENTIN) 875-125 mg per tablet Indications: Cutaneous abscess of back excluding buttocks Take 1 tablet by mouth two times a day for 10 days. 20 tablet 01/24/2025 02/03/2025 Active ascorbic acid 500 mg oral tablet (5 sources) Vitamin C take 1 tablet by mouth once daily ascorbic acid, vitamin C, (VITAMIN C) 500 mg tablet Take 500 mg by mouth once daily. Active aspirin 81 mg delayed release oral tablet (5 sources) Platelet Aggregation Inhibitor, Nonsteroidal Anti-inflammatory Drug take 1 tablet by mouth once daily aspirin, enteric coated (ASPIRIN, ENTERIC COATED) 81 mg EC tablet Take 81 mg by mouth once daily. Active Biotin (5 sources) BIOTIN ORAL Take by mouth. Active BIOTIN ORAL Take by mouth. 0 Active cephalexin 500 mg oral capsule (10 sources) Cephalosporin Antibacterial Start: 09-13-2008 cephalexin monohydrate(KEFLEX 500 MG CAP) Take one(1) tablet four(4) times daily. 28 0 09/13/2008 Active Start: 06-29-2008 cephalexin mon ohydrate(KEFLEX 500 MG CAP) Take one(1) tablet four (4) times daily. 28 0 06/29/2008 Active cetirizine hydrochloride 10 mg oral capsule (5 sources) Histamine-1 Receptor Antagonist Cetirizine (ZYRTEC) 10 mg cap Take by mouth. Active cholecalciferol 0.05 mg oral tablet (1 source) Vitamin D take 1 tablet by mouth once daily cholecalciferol (VITAMIN D3) 50 mcg (2,000 unit) tablet Take 1 tablet by mouth once daily. Active CYANOCOBALAMIN, VITAMIN B-12, (VITAMIN B12 ORAL) (5 sources) CYANOCOBALAMIN, VITAMIN B-12, (VITAMIN B12 ORAL) Take by mouth. Active CYANOCOBALAMIN, VITAMIN B-12, (VITAMIN B12 ORAL) Take by mouth. 0 Active doxycycline monohydrate 50 mg oral capsule (4 sources) Tetracycline-class Drug Start: 02-15-2025 take 1 capsule by mouth once daily Doxycycline Monohydrate 50 mg capsule Active 50 mg PO DAILY February 15, 2025 12:00am Start: 12-06-2024 take 1 capsule by [facility] once daily doxycycline monohydrate (MONODOX) 50 mg capsule Take 50 mg by mouth once daily. 12/06/2024 Active Ginkgo biloba extract (5 sources) GINKGO BILOBA (G INKOBA ORAL) Take by mouth. Active GINKGO BILOBA (G INKOBA ORAL) Take by mouth. 0 Active 3 ml insulin detemir 100 unt/ml pen injector (5 sources) Insulin Analog Start: 01-05-2016 LEVEMIR FLEXTO UCH 100 unit/mL (3 mL) inpn injection 01/05/2016 Active KRILL OIL ORAL (5 sources) KRILL OIL ORAL T sanju by mouth. Active KRILL OIL ORAL T sanju by mouth. 0 Active lisinopril 40 mg oral tablet (4 sources) Angiotensin Converting Enzyme Inhibitor Start: 02-15-2025 take 1 tablet by mouth once daily Lisinopril 40 mg tablet Active 40 mg PO DAILY February 15, 2025 12:00am Start: 01-11-2025 take 1 tablet by key th once daily lisinopril (ZESTRIL) 40 mg tablet Take 1 tablet by mouth once daily. 01/11/2025 Active 24 hr metFORMIN hydrochloride 500 mg extended release oral tablet (8 sources) Biguanide Start: 02-15-2025 take 1 tablet by mouth once daily Metformin 500 mg tablet extended release 24 hr Active 500 mg PO DAILY February 15, 2025 12:00am Start: 12-13-2015 metFORMIN ER ( GLUCOPHAGE XR) 500 mg 24 hr tablet 12/13/2015 Active MULTI-VITAMIN ORAL (5 sources) MULTI-VITAMIN OR AL Take by mouth. Active MULTI-VITAMIN OR AL Take by mouth. 0 Active mupirocin 0.02 mg/mg topical ointment (4 sources) RNA Synthetase Inhibitor Antibacterial Start: 02-15-2025 Mupirocin 2 % ointment Active TOPICAL TWICE A DAY February 15, 2025 12:00am Start: 01-24-2025 End: 02-03-2025 mupirocin (BACTROBAN) 2 % oi ntment Indications: Cutaneous abscess of back excluding buttocks Apply 1 application to affected area two times a day for 10 days. 20 g 01/24/2025 02/03/2025 Active OTC NUTRITIONAL SUPPLEMENT (5 sources) OTC NUTRITIONAL SUPPLEMENT tumeric Active OTC NUTRITIONAL SUPPLEMENT tumeric 0 Active OZEMPIC 2 mg/dose (8 mg/3 mL) pen injector (1 source) Start: 01-18-2025 inject 2 mg by subcutaneous injection every week OZEMPIC 2 mg/dose (8 mg/3 mL) pen injector Inject 2 mg subcutaneously one time a week. 01/18/2025 Active pioglitazone 30 mg oral tablet (5 sources) Peroxisome Proliferator Receptor alpha Agonist, Peroxisome Proliferator Receptor gamma Agonist, Thiazolidinedione Start: 11-21-2015 pioglitazone (ACTOS) 30 mg tablet 11/21/2015 Active Potassium (5 sources) POTASSIUM ORAL Take by mouth. Active POTASSIUM ORAL T sanju by mouth. 0 Active Semaglutide (3 sources) Start: 02-15-2025 inject 1 mg by subcutaneous injection every week Semaglutide (Semaglutide 1 Mg/Dose (4 Mg/3 Ml) Subcutaneous Pen Injector) 1 mg/dose (4 mg/3 mL) pen injector Active mg SC EVERY WEEK February 15, 2025 12:00am ubidecarenone 100 mg oral capsule (1 source) Start: 04-21-2018 coenzyme Q10 ( COQ-10) 100 mg cap capsule Take 100 mg by mouth once daily. 04/21/2018 Active Completed/Discontinued Medications Medication Drug Class(es) Dates Sig (Normalized) Sig (Original) 0.65 ml exenatide 3.08 mg/ml pen injector (5 sources) GLP-1 Receptor Agonist Start: 12-15-2015 End: 01-24-2025 BYDUREON 2 mg/0.65 mL pnij 12/15/2015 01/24/2025 Discontinued (Course of therapy completed) hydroCHLOROthiazide 12.5 mg / lisinopril 20 mg oral tablet (5 sources) Thiazide Diuretic, Angiotensin Converting Enzyme Inhibitor Start: 12-20-2015 End: 01-24-2025 lisinopril-hydroc hlorothiazide (PRINZIDE,ZESTORE TIC) 20-12.5 mg per tablet 12/20/2015 01/24/2025 Discontinued (Course of therapy completed) Problems Problem Classification Problem Date Documented Da te Episodic/Chronic Diabetes mellitus with complications (1 source) Type 2 diabetes mellitus with diabetic chronic kidney disease; Translations: [Type 2 diabetes mellitus with diabetic chronic kidney disease] Onset: 07-16-2024 Chronic Nonmalignant breast conditions (2 sources) Breast lump; Translations: [Unspecified lump in the left breast, unspecified quadrant] 03-02-2025 Episodic Other screening for suspected conditions (not mental disorders or infectious disease) (6 sources) Mammography abnormal; Translations: [Other abnormal and inconclusive findings on diagnostic imaging of breast] Onset: 01-19-2016 01-19-2016 Episodic Other skin disorders (6 sources) Hidradenitis suppurativa; Translations: [Hidradenitis suppurativa] 02-15-2025 Episodic Other skin disorders (2 sources) Hidradenitis suppurativa; Translations: [Hidradenitis suppurativa] Onset: 02-19-2025 Episodic Skin and subcutaneous tissue infections (2 sources) Abscess of back, except buttock; Translations: [Cutaneous abscess of back [any part, except buttock]] Onset: 01-24-2025 01-24-2025 Episodic Results Test Name Value Interpretation Reference Range Facility Breast Limited Unilateralon 02-23-2025 Breast Limited Unilateral [facility] Imaging Services [address] [place] [id number] Breast Limited Unilateral MR#: [id number] Acct: [id number] Name: MARION DUNCAN Rep #: [id number] : 1960 F 65 From: Dash campbell MD PCP: Dr. Annalise Sampson MD Status: REG CLI Study: Breast Limited Unilateral Date of Exam: Exam# [id number] Ordering Dr: Annalise Sampson PROCEDURE: BREAST LIMITED UNILATERAL 02/23/2025 REASON FOR EXAM: F, Age 65 y/o , ABNOMRAL MAMMOGRAM FROM [facility] ON 01/01/25 COMPARISON: Prior mammogram dated January 01, 2025.. TECHNIQUE: BREAST LIMITED UNILATERAL. The retroareolar region of the left breast was examined with ultrasound. FINDINGS: In the retroareolar region, there is a 6 mm x 10 mm x 5 mm cyst. Low-level echoes are seen within it. Percutaneous drainage recommended. US/Breast Limited Unilateral IMPRESSION: 6 mm x 10 mm x 5 mm cyst in the retroareolar region of the left breast with low-level echoes within it. Tissue sampling recommended. BI-RADS 4: SUSPICIOUS RECOMMENDATION: Biopsy Recommended Reading Location: [id number] CC: Dr. Annalise Sampson MD Closing Machine Operator: Signed Normal [facility] History AND Physic [email or web address] 02-15-2025 Wound Ctr History & Physical [facility] [address] [place] [address] H P Exam - Wound Care 02/15/25 0902 MR#: [id number] Acct: [id number] Name: MARION DUNCAN Rep #: [id number] : 1960 64 From: Raul Poon MD PCP: Dr. Annalise Sampson MD Status:REG RCR Location: History of Present Illness Date of Service: 02/15/25 History of Wound: The patient is a 64-year-old female presenting with hidradenitis suppurativa. The condition involves purulent drainage from lesions on the right upper back, persisting for about two months. She has been seeing Dr. Guerrero from [facility] dermatology for the condition, and 2 weeks ago he began her on a course of oral doxycycline and topical clindamycin gel. He referred her to us for definitive management of the sinus tracts. She has a history of diabetes mellitus, with an A1c of 6.7, managed with metformin and Ozempic. Her hypertension is controlled with lisinopril, though she missed her dose on the day of the visit, leading to elevated readings. ROS: - Dermatological: Reports purulent drainage from lesions on the right upper back. - Endocrine: Reports diabetes mellitus, denies recent hypoglycemic episodes. - Cardiovascular: Reports hypertension, denies chest pain or palpitations. Attestation: Documentation on this patient encounter was supported using ambient scribe technology/ voice AI technology. The patient consented to recording for the purpose of documenting the encounter. Provider reviewed content of the generated note prior to signature. [facility] Allergy/AdvReac Type Severity Reaction Status Date / Time acetaminophen (From Percocet) Allergy Intermediate Hives Verified 02/15/25 08:35 oxycodone (From Percocet) Allergy Intermediate Hives Verified 02/15/25 08:35 Vital Signs Vital Signs Vital Signs: 02/15/25 08:23 Temperature 97.6 F L Temperature Source Temporal Pulse Rate 83 Respiratory Rate 14 Blood Pressure 189/94 H Blood Pressure Mean 125 Blood Pressure Source Monitor Blood Pressure Position Semi-Fowlers Blood Pressure Location Right Arm Physical Exam Narrative - Skin: 4 x 3 cm area of induration and fluctuance with purulent drainage on the right upper back, consistent with hidradenitis suppurativa. Debridement Note Debridement Note Post-Debridement Measurements and Additional Note: Post-Debridement Measurements/Treatm ent WC - Nurse 1 - General Ulcer Assessment Start: 02/15/25 08:23 Freq: Status: Active Protocol: EDA.RADHA Activity Type Activity Date Activity User E-sign Co-sign Detail Recorded Client Recorded Date Recorded By Document 02/15/25 08:23 ML [id number] 02/15/25 08:30 ML 02/15/25 08:23 WC - Today's Visit Information Type of service Initial Visit Arrival Mode Ambulatory Patient Identification Verified (Name Yes ) Patient Requires Transmission-Based No Precautions Vital Signs Temperature (97.8 F-99.1 F) 97.6 F L Temperature Source Temporal Pulse Rate (60-100) 83 Pulse Location Monitor Respiratory Rate (12-18) 14 Respiratory rate source Monitor Blood Pressure (90/60-120/80) 189/94 H Blood Pressure Mean 125 Source Monitor Position Semi-Fowlers Blood Pressure Location Right Arm Pain Scale: 0-10 Numeric Is Patient Pain Free? Yes - Nurse 1 - General Ulcer Measurement Start: 02/15/25 08:23 Freq: Status: Active Protocol: Activity Type Activity Date Activity User E-sign Co-sign Detail Recorded Client Recorded Date Recorded By Document 02/15/25 08:23 ML [id number] 02/15/25 08:30 ML 02/15/25 08:23 Wound Center Nurse 1 Right upper back -Current Size (cm) - Length 0.1 -Current Size (cm) - Width 0.1 -Current Size (cm) - Depth 0.2 -Total Square Cm 0.01 -Exudate Type Yellow/Green -Granulation Amt Medium (34-66%) -Necrotic Tissue Type Adherent Slough -Texture (Lorena-wound Skin Appearance) Assessed -Moisture (Lorena-wound Skin Appearance) Assessed -Color (Lorena-wound Skin Appearance) Assessed -Temperature (Lorena-wound Skin No Abnormality Appearance) (Pt Warm) -Tenderness on Palpation (Lorena-wound Yes Skin Appearance) -Ulcer Cleansing Rinsed/ Irrigated with Saline -Foul Odor after Cleansing No -Anesthetic Used 5% Lidocaine Gel - Nurse 2 - General Ulcer CM Notes Start: 02/15/25 08:23 Freq: Status: Active Protocol: Activity Type Activity Date Activity User E-sign Co-sign Detail Recorded Client Recorded Date Recorded By Document 02/15/25 08:38 DS [id number] 02/15/25 08:47 DS 02/15/25 08:38 Wound Center Nurse 2 -Time 08:38 -Correct Patient Yes -Correct Side, Site, Position Yes -Procedure Performed No -Post Debridement (cm) - Length 4.0 -Post Debride (more content not included)... Normal [facility] CNOVon 01-24-2025 CNOV Office Visit ([facility]) ---- MARION DUNCAN ([id number]) 1960 F Date Time Provider Department 01/24/25 1:00 PM NINA HOSKINS [facility] During your visit today, we recorded the following information about you: Temperature Pulse Respiration Blood pressure 98.5 degrees 74/minute 20/minute 188/109 Weight 110 kg Nina Hoskins PA-C 01/24/2025 1:31 PM Signed This note was created using RingRang. Subjective Marion Duncan is a 64 year old female. Patient is a 64-year-old female complains of an enlarging area of redness, swelling and pain that she has been experiencing to her right thoracic back for the past approximately 2 weeks. Patient states she has noted drainage to the site over the past several days. Patient is not certain if she experienced an insect bite/sting or other wound to the skin of her thoracic back. Patient does have hidradenitis and typically takes doxycycline 50 mg once daily for prophylaxis. Review of Systems Skin: Redness, Swelling and Pain to Thoracic Back All other systems reviewed and are negative. Objective BP 188/109 Pulse 74 Temp 36.9 ?C (98.5 ?F) Resp 20 Wt 110 kg (242 lb 8.1 oz) SpO2 99% Physical Exam Vitals and nursing note reviewed. Constitutional: Appearance: Normal appearance. She is normal weight. HENT: Head: Normocephalic and atraumatic. Nose: Nose normal. Mouth/Throat: Mouth: Mucous membranes are moist. Pharynx: Oropharynx is clear. Eyes: Extraocular Movements: Extraocular movements intact. Conjunctiva/sclera: Conjunctivae normal. Pupils: Pupils are equal, round, and reactive to light. Cardiovascular: Rate and Rhythm: Normal rate. Pulses: Normal pulses. Pulmonary: Effort: Pulmonary effort is normal. Breath sounds: Normal breath sounds. Musculoskeletal: General: Normal range of motion. Cervical back: Normal range of motion and neck supple. Skin: General: Skin is warm and dry. Capillary Refill: Capillary refill takes less than 2 seconds. Findings: Erythema present. Comments: Approximate 4 cm annular region of intense erythema and induration is noted to the medial aspect of the superior right paravertebral thoracic back. There is a central open area which is draining a slight amount of purulent fluid. Patient demonstrates tenderness with palpation. Remainder of exam to the skin of the thoracic and lumbar back is unremarkable. Neurological: General: No focal deficit present. Mental Status: She is alert and oriented to person, place, and time. Psychiatric: Mood and Affect: Mood normal. Behavior: Behavior normal. Thought Content: Thought content normal. Judgment: Judgment normal. Assessment and Plan Physical exam findings as noted above. Patient cannot be provided with a prescription for Bactrim due to interaction with a current GIOVANNY inhibitor. Patient was provided with prescriptions for Augmentin 875-125 mg and Bactroban 2% ointment. Patient was advised to continue the doxycycline as currently prescribed. Patient was very clearly instructed to report to an emergency department if she notes any acute worsening of her symptoms and to otherwise follow-up with her primary care physician for further management as needed. Patient verbalizes clear understanding of all instructions. CLINICAL IMPRESSION: Cellulitis/Abscess Medial Right Thoracic Back ASSESSMENT/PLAN: 1. Cutaneous abscess of back excluding buttocks - ICD9: 682.2, ICD10: L02.212 - MUPIROCIN 2 % TOPICAL OINTMENT - AMOXICILLIN 875 MG-POTASSIUM CLAVULANATE 125 MG TABLET MDM Risk of Complications, Morbidity, and/or Mortality Presenting problems: low Diagnostic procedures: low Management options: ranjana Hoskins PA-C Allergies As of Date: 01/24/2025 Noted Allergy Reaction PERCOCET (OXYCODONE-ACETAMIN OPHEN)05/07/2007 2 - Rash Date Reviewed: 01/24/2025 Reviewed by: Adrienne Canela LPN - Fully Assessed Reason for Visit: Derm Problem [33] Cmt: Boil on R shoulder, red raised painful, hard 3x3 area, causing pain in shoulder x 2 weeks Some drainage Primary Visit Diagnosis:Cutaneous abscess of back excluding buttocks [L02.212] Order(s):mupirocin (BACTROBAN) 2 % ointmentApply 1 application to affected area two times a day for 10 days.Disp: 20 gRfl: 0 amoxicillin-clavula hu potassium (AUGMENTIN) 875-125 mg per tabletTake 1 tablet by mouth two times a day for 10 days.Disp: 20 tabletRfl: 0 Prescriptions as of 01/24/2025 - doxycycline monohydrate (MONODOX) 50 mg capsule Take 50 mg by mouth once daily. - lisinopril (ZESTRIL) 40 mg tablet Take 1 tablet by mouth once daily. - OZEMPIC 2 mg/dose (8 mg/3 mL) pen injector Inject 2 mg subcutaneously one time a week. - coenzyme Q10 (COQ-10) 100 mg cap capsule Take 100 mg by mouth once daily. - cholecalciferol (VITAMIN D3) 50 mcg (2,000 unit) tablet Take 1 tablet by mouth once daily. - mu (more content not included)... [facility] Breast - bilateral scree faby 01-01-2025 IMPRESSION: Finding 1: The focal asymmetry in the nipple of the left breast requires additional evaluation. Diagnostic ultrasound is recommended. Finding 2: There is a biopsy marker in the right breast. Routine screening mammogram of the right breast is recommended. BI-RADS Category 0: Incomplete: Needs Additional Imaging Evaluation RISK: Based on the Tyrer-Cuzick (TC) risk assessment model, this patient has a 11.1% lifetime risk of developing breast cancer, meaning they are at average risk for developing breast cancer. However, this is only an estimate based on available history provided on the patient's questionnaire. We encourage all patients to talk with their providers about these results, further recommendations for managing breast health, and appropriate supplemental screening options if the patient has dense breast tissue. REF#[id number]. Interpreting Radiologist: Kimmy Gamble M.D. Electronically signed on: 01/01/2025 Closing Machine Operator: GIRMA Transcribe Date/Time: Jan 01 2025 7:09A Dictated by: KIMMY GAMBLE MD This examination was interpreted and the report reviewed and electronically signed by: KIMMY GAMBLE MD on Jan 01 2025 11:11AM [facility] DIVISION OF RADIOLOGY * * *Final Report* * * DATE OF EXAM: Jan 01 2025 7:56AM W 0582 - [facility] SCREENING W LEELA / PROCEDURE REASON: screening * * * * Physician Interpretation * * * * RESULT: [address] [place] [address] #[id number] - [facility] SCREENING W LEELA HISTORY: 64 year-old patient presents for screening. Patient is asymptomatic in both breasts. Patient states no personal history of breast cancer. The patient has a family history of breast cancer. COMPARISON STUDIES: The present examination has been compared to prior imaging studies dated 01/05/2016 (mammogram), 12/26/2023 (mammogram), 01/22/2024 (ultrasound) and 01/22/2024 (mammogram). MAMMOGRAM TECHNIQUE: The study was acquired using full field digital technology and interpreted from soft copy. Digital Breast Tomosynthesis (DBT) images were obtained and used to assist in the interpretation of this examination. MAMMOGRAM FINDINGS: The breasts are almost entirely fatty. Finding 1: There is a focal asymmetry in the nipple of the left breast. Finding 2: There is a biopsy marker in the right breast. DIVISION OF RADIOLOGY Provider, [facility] [place] - 01/01/2025 * * *Final Report* * * DATE OF EXAM: Jan 01 2025 7:56AM [facility] 0582 - [facility] SCREENING W LEELA / PROCEDURE REASON: screening * * * * Physician Interpretation * * * * RESULT: [place] [address] #[id number] - [facility] SCREENING W LEELA HISTORY: 64 year-old patient presents for screening. Patient is asymptomatic in both breasts. Patient states no personal history of breast cancer. The patient has a family history of breast cancer. COMPARISON STUDIES: The present examination has been compared to prior imaging studies dated 01/05/2016 (mammogram), 12/26/2023 (mammogram), 01/22/2024 (ultrasound) and 01/22/2024 (mammogram). MAMMOGRAM TECHNIQUE: The study was acquired using full field digital technology and interpreted from soft copy. Digital Breast Tomosynthesis (DBT) images were obtained and used to assist in the interpretation of this examination. MAMMOGRAM FINDINGS: The breasts are almost entirely fatty. Finding 1: There is a focal asymmetry in the nipple of the left breast. Finding 2: There is a biopsy marker in the right breast. IMPRESSION IMPRESSION: Finding 1: The focal asymmetry in the nipple of the left breast requires additional evaluation. Diagnostic ultrasound is recommended. Finding 2: There is a biopsy marker in the right breast. Routine screening mammogram of the right breast is recommended. BI-RADS Category 0: Incomplete: Needs Additional Imaging Evaluation RISK: Based on the Tyrer-Cuzick (TC) risk assessment model, this patient has a 11.1% lifetime risk of developing breast cancer, meaning they are at average risk for developing breast cancer. However, this is only an estimate based on available history provided on the patient's questionnaire. We encourage all patients to talk with their providers about these results, further recommendations for managing breast health, and appropriate supplemental screening options if the patient has dense breast tissue. REF#[id number]. Interpreting Radiologist: Kimmy Gamble M.D. Electronically signed on: 01/01/2025 Closing Machine Operator: GIRMA Transcribe Date/Time: Jan 01 2025 7:09A Dictated by: KIMMY GAMBLE MD This examination was interpreted and the report reviewed and electronically signed by: KIMMY GAMBLE MD on Jan 01 2025 11:11AM EST [facility] Radiology Study observation (narrative) [facility] DBT Breast - bilateral scree ningOrdered By: Ccf Provider on 01-01-2025 [facility] CARO SCREENING W TOMOon 01-01 CARO SCREENING W LEELA * * *Final Report* * * DATE OF EXAM: Jan 01 2025 7:56AM W 0582 - CARO SCREENING W LEELA / PROCEDURE REASON: screening * * * * Physician Interpretation * * * * RESULT: [facility] [place] [address] #[id number] - CARO SCREENING W LEELA HISTORY: 64 year-old patient presents for screening. Patient is asymptomatic in both breasts. Patient states no personal history of breast cancer. The patient has a family history of breast cancer. COMPARISON STUDIES: The present examination has been compared to prior imaging studies dated 01/05/2016 (mammogram), 12/26/2023 (mammogram), 01/22/2024 (ultrasound) and 01/22/2024 (mammogram). MAMMOGRAM TECHNIQUE: The study was acquired using full field digital technology and interpreted from soft copy. Digital Breast Tomosynthesis (DBT) images were obtained and used to assist in the interpretation of this examination. MAMMOGRAM FINDINGS: The breasts are almost entirely fatty. Finding 1: There is a focal asymmetry in the nipple of the left breast. Finding 2: There is a biopsy marker in the right breast. IMPRESSION: Finding 1: The focal asymmetry in the nipple of the left breast requires additional evaluation. Diagnostic ultrasound is recommended. Finding 2: There is a biopsy marker in the right breast. Routine screening mammogram of the right breast is recommended. BI-RADS Category 0: Incomplete: Needs Additional Imaging Evaluation RISK: Based on the Tyrer-Cuzick (TC) risk assessment model, this patient has a 11.1% lifetime risk of developing breast cancer, meaning they are at average risk for developing breast cancer. However, this is only an estimate based on available history provided on the patient's questionnaire. We encourage all patients to talk with their providers about these results, further recommendations for managing breast health, and appropriate supplemental screening options if the patient has dense breast tissue. REF#[id number]. Interpreting Radiologist: Kimmy Gamble M.D. Electronically signed on: 01/01/2025 Closing Machine Operator: GIRMA Transcribe Date/Time: Jan 01 2025 7:09A Dictated by: KIMMY GAMBLE MD This examination was interpreted and the report reviewed and electronically signed by: KIMMY GAMBLE MD on Jan 01 2025 11:11AM EST [id number] [id number] Normal [facility] Metabolic Prof [facility] 06-16-2024 Albumin [Mass/Vol] 3.6 g/dL Normal 3.2-5.0 [facility] Comment on above: Order Comment: Order Date: 03/05/24 Order Info: 0786-1 - CMP Order Info: [id number] - LIPID Order Date: 06/16/24 Order Info: 3084-1 - URIC Order Info: 3016-3 - TSH Performed By: #### L 503.0105, L501.9520, L500.4050, L500.4100 #### [facility] [address] [place], [address] Albumin/Globulin [Mass ratio] 0.8 {ratio} Low 0.9-2.4 [facility] Comment on above: Order Comment: Order Date: 03/05/24 Order Info: 785-1 - CMP Order Info: 41267-1 - LIPID Order Date: 06/16/24 Order Info: 3083-1 - URIC Order Info: 3 - TSH Performed By: #### L 503.0105, L501.9520, L500.4050, L500.4100 #### [facility] [address] [place], [address] ALK P 79 U/L Normal 45-117 [facility] Comment on above: Order Comment: Order Date: 03/05/24 Order Info: 785-1 - CMP Order Info: - LIPID Order Date: 06/16/24 Order Info: 3083-07 - URIC Order Info: 3 - TSH Performed By: #### L 503.0105, L501.9520, L500.4050, L500.4100 #### [facility] [address] [place], [address] ALT [Catalytic activity/Vol] 29 U/L Normal 13-56 [facility] Comment on above: Order Comment: Order Date: 03/05/24 Order Info: 785- - CMP Order Info: - LIPID Order Date: 06/16/24 Order Info: 3083-07 - URIC Order Info: 3 - TSH Performed By: #### L 503.0105, L501.9520, L500.4050, L500.4100 #### [facility] [address] [place], [address] AST [Catalytic activity/Vol] 24 U/L Normal 15-37 [facility] Comment on above: Order Comment: Order Date: 03/05/24 Order Info: 785-1 - CMP Order Info: - LIPID Order Date: 06/16/24 Order Info: 3083-07 - URIC Order Info: 3016-3 - TSH Performed By: #### L 503.0105, L501.9520, L500.4050, L500.4100 #### [facility] [address] [place], [address] Bilirubin [Mass/Vol] 0.40 mg/dL Normal 0.20-1.00 [facility] Comment on above: Order Comment: Order Date: 03/05/24 Order Info: 0786-1 - CMP Order Info: [id number] - LIPID Order Date: 06/16/24 Order Info: 3083-1 - URIC Order Info: 3 - TSH Result Comment: For patients on eltrombopag therapy, use of Dimension [place] TBIL is not recommended. Performed By: #### L 503.0105, L501.9520, L500.4050, L500.4100 #### [facility] [address] [place], [address] BUN/CRE 12.1 RATIO Normal 10-20 [facility] Comment on above: Order Comment: Order Date: 03/05/24 Order Info: 785- - CMP Order Info: [id number] - LIPID Order Date: 06/16/24 Order Info: 3083- - URIC Order Info: 3015-09 - TSH Performed By: #### L 503.0105, L501.9520, L500.4050, L500.4100 #### [facility] [address] [place], [address] CA,Total 9.1 mg/dL Normal 8.5-10.1 [facility] Comment on above: Order Comment: Order Date: 03/05/24 Order Info: 07-1 - CMP Order Info: [id number] - LIPID Order Date: 06/16/24 Order Info: 3083-1 - URIC Order Info: 3 - TSH Performed By: #### L 503.0105, L501.9520, L500.4050, L500.4100 #### [facility] [address] [place], [address] Chloride [Moles/Vol] 108 mmol/L High 98-107 [facility] Comment on above: Order Comment: Order Date: 03/05/24 Order Info: 86-1 - CMP Order Info: [id number] - LIPID Order Date: 06/16/24 Order Info: 4-1 - URIC Order Info: 6-3 - TSH Performed By: #### L 503.0105, L501.9520, L500.4050, L500.4100 #### [facility] [address] [place], [address] CO2 [Moles/Vol] 27.0 mmol/L Normal 21.0-32.0 [facility] Comment on above: Order Comment: Order Date: 03/05/24 Order Info: 785- - CMP Order Info: - LIPID Order Date: 06/16/24 Order Info: 3083-1 - URIC Order Info: 3 - TSH Performed By: #### L 503.0105, L501.9520, L500.4050, L500.4100 #### [facility] [address] [place], [address] Creatinine [Mass/Vol] 0.82 mg/dL Normal 0.55-1.02 [facility] Comment on above: Order Comment: Order Date: 03/05/24 Order Info: 785-07 - CMP Order Info: - LIPID Order Date: 06/16/24 Order Info: 3083-1 - URIC Order Info: 6-3 - TSH Result Comment: The validity of the calculated GFR GFRAA in patients over 70 years has not been determined. Clinical correlation is essential. Performed By: #### L 503.0105, L501.9520, L500.4050, L500.4100 #### [facility] [address] [place], [address] EST GFR - AA 90 mL/min Normal >60 [facility] Comment on above: Order Comment: Order Date: 03/05/24 Order Info: 785-1 - CMP Order Info: - LIPID Order Date: 06/16/24 Order Info: 3083-07 - URIC Order Info: 3015-09 - TSH Result Comment: Afri can Kosovan GFR Calc Performed By: #### L 503.0105, L501.9520, L500.4050, L500.4100 #### [facility] [address] [place], [address] GAP 6 Normal 5-15 [facility] Comment on above: Order Comment: Order Date: 03/05/24 Order Info: 785- - CMP Order Info: - LIPID Order Date: 06/16/24 Order Info: 3083-07 - URIC Order Info: 3015-09 - TSH Performed By: #### L 503.0105, L501.9520, L500.4050, L500.4100 #### [facility] [address] [place], [address] GFR/1.73 sq M.predicted among non-blacks MDRD (S/P/Bld) [Vol rate/Area] 74 mL/min/{1.73_m2} Normal >60 [facility] Comment on above: Order Comment: Order Date: 03/05/24 Order Info: 785-07 - CMP Order Info: - LIPID Order Date: 06/16/24 Order Info: 3083-07 - URIC Order Info: 3015-09 - TSH Result Comment: Non- GFR Calc Performed By: #### L 503.0105, L501.9520, L500.4050, L500.4100 #### [facility] [address] [place], [address] Globulin (S) [Mass/Vol] 4.6 g/dL High 2.2-4.2 [facility] Comment on above: Order Comment: Order Date: 03/05/24 Order Info: 785-07 - CMP Order Info: - LIPID Order Date: 06/16/24 Order Info: 3083-07 - URIC Order Info: 3016-3 - TSH Performed By: #### L 503.0105, L501.9520, L500.4050, L500.4100 #### [facility] [address] [place], [address] Glucose [Mass/Vol] 76 mg/dL Normal 74-106 [facility] Comment on above: Order Comment: Order Date: 03/05/24 Order Info: 86-1 - CMP Order Info: [id number] - LIPID Order Date: 06/16/24 Order Info: 3084-1 - URIC Order Info: 3 - TSH Performed By: #### L 503.0105, L501.9520, L500.4050, L500.4100 #### [facility] [address] [place], [address] Potassium [Moles/Vol] 3.8 mmol/L Normal 3.5-5.1 [facility] Comment on above: Order Comment: Order Date: 03/05/24 Order Info: 785- - CMP Order Info: [id number] - LIPID Order Date: 06/16/24 Order Info: 4-1 - URIC Order Info: 3015-09 - TSH Performed By: #### L 503.0105, L501.9520, L500.4050, L500.4100 #### [facility] [address] [place], [address] Sodium [Moles/Vol] 140 mmol/L Normal 136-145 [facility] Comment on above: Order Comment: Order Date: 03/05/24 Order Info: 785-1 - CMP Order Info: 78533-7 - LIPID Order Date: 06/16/24 Order Info: 3084-1 - URIC Order Info: 3 - TSH Performed By: #### L 503.0105, L501.9520, L500.4050, L500.4100 #### [facility] [address] [place], [address] T PROT 8.2 g/dL Normal 6.4-8.2 [facility] Comment on above: Order Comment: Order Date: 03/05/24 Order Info: 785- - CMP Order Info: 34588-8 - LIPID Order Date: 06/16/24 Order Info: 3083-1 - URIC Order Info: 3015-3 - TSH Performed By: #### L 503.0105, L501.9520, L500.4050, L500.4100 #### [facility] [address] [place], [address] Urea nitrogen [Mass/Vol] 10 mg/dL Normal 7-18 [facility] Comment on above: Order Comment: Order Date: 03/05/24 Order Info: 785- - CMP Order Info: - LIPID Order Date: 06/16/24 Order Info: 3083- - URIC Order Info: 3015-09 - TSH Performed By: #### L 503.0105, L501.9520, L500.4050, L500.4100 #### [facility] [address] [place], [address] Lipid Profileon 06-16-2024 Cholesterol [Mass/Vol] 148 mg/dL Normal 200 [facility] Comment on above: Order Comment: Order Date: 03/05/24 Order Info: 785-07 - CMP Order Info: - LIPID Order Date: 06/16/24 Order Info: 3083- - URIC Order Info: 3 - TSH Result Comment: <200 mg/dL Desirable 200-240 mg/dL Borderline >240 mg/dL High Risk Performed By: #### L 503.0105, L501.9520, L500.4050, L500.4100 #### [facility] [address] [place], [address] Cholesterol in HDL [Mass/Vol] 63 mg/dL Normal [facility] Comment on above: Order Comment: Order Date: 03/05/24 Order Info: 785- - CMP Order Info: - LIPID Order Date: 06/16/24 Order Info: 3083-07 - URIC Order Info: 3 - TSH Result Comment: The drugs N-Acetylcysteine and Metamizole may falsely depress this assay. Reference Range HDL <40 mg/dL Low HDL Cholesterol HDL >or= 60 mg/dL High HDL Cholesterol Performed By: #### L 503.0105, L501.9520, L500.4050, L500.4100 #### [facility] [address] [place], [address] Cholesterol in LDL [Mass/Vol] 62 mg/dL Normal 0-130 [facility] Comment on above: Order Comment: Order Date: 03/05/24 Order Info: 785- - CMP Order Info: - LIPID Order Date: 06/16/24 Order Info: 3083-07 - URIC Order Info: 3015-09 - TSH Performed By: #### L 503.0105, L501.9520, L500.4050, L500.4100 #### [facility] [address] [place], [address] Cholesterol in VLDL [Mass/Vol] 23 mg/dL Normal 5-40 [facility] Comment on above: Order Comment: Order Date: 03/05/24 Order Info: 07 - CMP Order Info: - LIPID Order Date: 06/16/24 Order Info: 3083-07 - URIC Order Info: 3015-09 - TSH Performed By: #### L 503.0105, L501.9520, L500.4050, L500.4100 #### [facility] [address] [place], [address] Triglyceride [Mass/Vol] 113 mg/dL Normal [facility] Comment on above: Order Comment: Order Date: 03/05/24 Order Info: 0786- - CMP Order Info: 74620-0 - LIPID Order Date: 06/16/24 Order Info: 3083-07 - URIC Order Info: 3 - TSH Result Comment: The drugs N-Acetylcysteine and Metamizole may falsely depress this assay. Serum Triglycerides Reference Interval Normal <150 mg/dL Borderline high 150 - 199 mg/dL High 200 - 499 mg/dL Very High > or = 500 mg/dL Performed By: #### L 503.0105, L501.9520, L500.4050, L500.4100 #### [facility] [address] [place], [address] Thyroid Stim Hormone (TSH)on 06-16-2024 TSH 1.100 uIU/mL Normal 0.358-3.740 [facility] Comment on above: Order Comment: Order Date: 03/05/24 Order Info: 0786-1 - CMP Order Info: 91383-9 - LIPID Order Date: 06/16/24 Order Info: 3084-1 - URIC Order Info: 3016-3 - TSH Performed By: #### L 503.0105, L501.9520, L500.4050, L500.4100 #### [facility] [address] [place], [address] Uric Acidon 06-16-2024 URIC 4.6 mg/dL Normal 2.6-6.0 [facility] Comment on above: Order Comment: Order Date: 03/05/24 Order Info: 0786-1 - CMP Order Info: 90332-5 - LIPID Order Date: 06/16/24 Order Info: 3084-1 - URIC Order Info: 3016-3 - TSH Result Comment: The drugs N-Acetylcysteine and Metamizole may falsely depress this assay. Performed By: #### L 501.1400, L506.1000 #### [facility] [address] [place], [address] Vitamin B12on 06-16-2024 Cobalamin (Vitamin B12) [Mass/Vol] 1006 pg/mL High 211-911 [facility] Comment on above: Order Comment: Order Date: 03/05/24 Order Info: 2132-9 - B12 Order Date: 06/16/24 Order Info: 90018-6 - VITD25 Performed By: #### L 503.0105, L501.9520, L500.4050, L500.4100 #### [facility] [address] [place], [place], [address] Vitamin D,25 Hydroxyon 06-16 Vitamin D 25-OH 77.9 ng/mL Normal [facility] Comment on above: Order Comment: Order Date: 03/05/24 Order Info: 2132-9 - B12 Order Date: 06/16/24 Order Info: [id number] - VITD25 Result Comment: Komal min D 25(OH) Status Range Deficiency <20 ng/mL (50nmol/L) Insufficiency 20 - 30 ng/mL (50 - 75 nmol/L) Sufficiency 30 - 100 ng/mL (75 - 250 nmol/L) Toxicity >100 ng/mL (>250 nmol/L) Performed By: #### L 501.1400, L506.1000 #### [facility] [address] [place], [place], [address] DBT Breast - left diagnostic for implanton 01-22-2024 * * *Final Report* * * DATE OF EXAM: Jan 22 2024 4:21PM WR 0628 - [facility] MOOKIE SPARKSO LT / PROCEDURE REASON: diagnostic mammogram * * * * Physician Interpretation * * * * RESULT: #[id number] - CARO DIAG W LEELA LT UNILATERAL LEFT DIGITAL DIAGNOSTIC MAMMOGRAM TOMOSYNTHESIS WITH CAD: 01/22/2024 HISTORY: Diagnostic Mammogram / Call back/abnormal mamm: Left /priors available for comparison. RESULT: TECHNIQUE: The study was acquired using full field digital technology and interpreted from soft copy. Digital Breast Tomosynthesis (DBT) images were obtained and used to assist in the interpretation of this examination. Current study was also evaluated with a Computer Aided Detection (CAD). Comparison is made to exam dated: 12/26/2023 mammogram - [facility]. The left breast is almost entirely fatty. There is an oval central lucent asymmetry in the left breast at 11 o'clock posterior depth. This is seen in additional views. No other significant masses or calcifications are seen in the breast. DIVISION OF RADIOLOGY Provider, [facility] [place] - 01/22/2024 * * *Final Report* * * DATE OF EXAM: Jan 22 2024 4:21PM W 0628 - [facility] MOOKIE [place] LEELA LT / PROCEDURE REASON: diagnostic mammogram * * * * Physician Interpretation * * * * RESULT: #[id number] - CARO SPARKSO LT UNILATERAL LEFT DIGITAL DIAGNOSTIC MAMMOGRAM TOMOSYNTHESIS WITH CAD: 01/22/2024 HISTORY: Diagnostic Mammogram / Call back/abnormal mamm: Left /priors available for comparison. RESULT: TECHNIQUE: The study was acquired using full field digital technology and interpreted from soft copy. Digital Breast Tomosynthesis (DBT) images were obtained and used to assist in the interpretation of this examination. Current study was also evaluated with a Computer Aided Detection (CAD). Comparison is made to exam dated: 12/26/2023 mammogram - [facility]. The left breast is almost entirely fatty. There is an oval central lucent asymmetry in the left breast at 11 o'clock posterior depth. This is seen in additional views. No other significant masses or calcifications are seen in the breast. IMPRESSION IMPRESSION: INCOMPLETE: NEEDS ADDITIONAL IMAGING EVALUATION The oval central lucent asymmetry in the left breast is indeterminate. An ultrasound is recommended. Rio oliva/jocelyn:01/22/2024 16:34:12 Tile Mechanic Helper(s): Tracey Stallworth, [facility] Mammogram BI-RADS: 0 Incomplete: needs additional imaging evaluation Multiple national specialty organizations have released breast cancer screening guidelines for women at average risk for developing breast cancer - guidelines that are based on both evidence and opinion, yet differ on when to start and how often to screen for breast cancer. With representation from Breast Imaging, Internal Medicine, Women's Health, Family Medicine, and Medical/Surgical Oncology, the [facility] has carefully reviewed the data and reached the following consensus: 1) All women should engage in shared decision-making with their providers to decide when to start and how often to screen; 2) All women should have the opportunity to start screening mammography at age 40; 3) For women ages 45-55, we recommend annual screening mammograms; 4) For women ages 55 and over, we support both the transition from an annual to a biennial interval if this aligns more with patient's values and preferences, or continuation with annual screening; 5) All women should discuss with their providers when to stop screening mammograms. Closing Machine Operator: Jocelyn Transcribe Date/Time: Jan 22 2024 4:02P Dictated by: RIO PINEDA MD This examination was interpreted and the report reviewed and electronically signed by: RIO PINEDA MD on Jan 22 2024 4:34PM EST [facility] Radiology Study observation (narrative) [facility] DBT Breast - left diagnostic for implantOrdered By: Ccf Provider on 01-22-2024 [facility] US Breast - left limitedon 0 01-22-2024 IMPRESSION: BENIGN FINDING There is no sonographic evidence of malignancy. The 0.8 cm x 0.7 cm x 0.4 cm oval lesion in the left breast has a differential diagnosis of a lipoma and is benign. Return to annual mammogram screening schedule is recommended. Rio oliva/jocelyn:01/22/2024 16:36:57 Tile Mechanic Helper(s): Mellisa Fregoso [facility] Ultrasound BI-RADS: 2 Benign finding Multiple national specialty organizations have released breast cancer screening guidelines for women at average risk for developing breast cancer - guidelines that are based on both evidence and opinion, yet differ on when to start and how often to screen for breast cancer. With representation from Breast Imaging, Internal Medicine, Women's Health, Family Medicine, and Medical/Surgical Oncology, the [facility] has carefully reviewed the data and reached the following consensus: 1) All women should engage in shared decision-making with their providers to decide when to start and how often to screen; 2) All women should have the opportunity to start screening mammography at age 40; 3) For women ages 45-55, we recommend annual screening mammograms; 4) For women ages 55 and over, we support both the transition from an annual to a biennial interval if this aligns more with patient's values and preferences, or continuation with annual screening; 5) All women should discuss with their providers when to stop screening mammograms. Closing Machine Operator: Jocelyn Transcribe Date/Time: Jan 22 2024 4:27P Dictated by : RIO PINEDA MD This examination was interpreted and the report reviewed and electronically signed by: RIO PINEDA MD on Jan 22 2024 4:36PM EST DIVISION OF RADIOLOGY * * *Final Report* * * DATE OF EXAM: Jan 22 2024 4:27PM [facility] 0593 - [facility] threadsy BREAST [employer] / PROCEDURE REASON: diagnostic mammogram * * * * Physician Interpretation * * * * #[id number] - [facility] threadsy [facility] [employer] LIMITED ULTRASOUND OF LEFT BREAST: 01/22/2024 HISTORY: Diagnostic Mammogram. RESULT: Comparison is made to exam dated: 01/22/2024 mammogram [facility]. Color flow and real-time ultrasound of the left breast 11 o'clock region were performed. Leigh scale images of the real-time examination were reviewed. There is a benign 0.8 cm x 0.7 cm x 0.4 cm oval lesion with a circumscribed margin in the left breast at 11 o'clock posterior depth 11 cm from the nipple. This oval lesion is hyperechoic. Color flow imaging demonstrates that there is no vascularity present. DIVISION OF RADIOLOGY Provider, [facility] [place] - 01/22/2024 * * *Final Report* * * DATE OF EXAM: Jan 22 2024 4:27PM [facility] 0593 [employer] [facility] / PROCEDURE REASON: diagnostic mammogram * * * * Physician Interpretation * * * * #[id number] - [facility] [employer] LIMITED ULTRASOUND OF LEFT BREAST: 01/22/2024 HISTORY: Diagnostic Mammogram. RESULT: Comparison is made to exam dated: 01/22/2024 mammogram [facility]. Color flow and real-time ultrasound of the left breast 11 o'clock region were performed. Leigh scale images of the real-time examination were reviewed. There is a benign 0.8 cm x 0.7 cm x 0.4 cm oval lesion with a circumscribed margin in the left breast at 11 o'clock posterior depth 11 cm from the nipple. This oval lesion is hyperechoic. Color flow imaging demonstrates that there is no vascularity present. IMPRESSION IMPRESSION: BENIGN FINDING There is no sonographic evidence of malignancy. The 0.8 cm x 0.7 cm x 0.4 cm oval lesion in the left breast has a differential diagnosis of a lipoma and is benign. Return to annual mammogram screening schedule is recommended. Rio oliva/jocelyn:01/22/2024 16:36:57 Tile Mechanic Helper(s): Mellisa Fregoso [facility] Ultrasound BI-RADS: 2 Benign finding Multiple national specialty organizations have released breast cancer screening guidelines for women at average risk for developing breast cancer - guidelines that are based on both evidence and opinion, yet differ on when to start and how often to screen for breast cancer. With representation from Breast Imaging, Internal Medicine, Women's Health, Family Medicine, and Medical/Surgical Oncology, the [facility] has carefully reviewed the data and reached the following consensus: 1) All women should engage in shared decision-making with their providers to decide when to start and how often to screen; 2) All women should have the opportunity to start screening mammography at age 40; 3) For women ages 45-55, we recommend annual screening mammograms; 4) For women ages 55 and over, we support both the transition from an annual to a biennial interval if this aligns more with patient's values and preferences, or continuation with annual screening; 5) All women should discuss with their providers when to stop screening mammograms. Closing Machine Operator: Jocelyn Transcribe Date/Time: Jan 22 2024 4:27P Dictated by : RIO PINEDA MD This examination was interpreted and the report reviewed and electronically signed by: RIO PINEDA MD on Jan 22 2024 4:36PM [facility] Radiology Study observation (narrative) [facility] DBT Breast - bilateral marye faby 12-26-2023 * * *Final Report* * * DATE OF EXAM: Dec 26 2023 8:53AM [id number] - [facility] SCREENING W LEELA / PROCEDURE REASON: Z07.21 * * * * Physician Interpretation * * * * RESULT: #[id number] - [facility] SCREENING W LEELA BILATERAL DIGITAL SCREENING MAMMOGRAM TOMOSYNTHESIS WITH CAD: 12/26/2023 HISTORY: /SEE TECH NOTE /Z31 /Screening Mammogram with LEELA - patient reports NO breast symptoms /priors available for comparison. RESULT: TECHNIQUE: The study was acquired using full field digital technology and interpreted from soft copy. Digital Breast Tomosynthesis (DBT) images were obtained and used to assist in the interpretation of this examination. Current study was also evaluated with a Computer Aided Detection (CAD). Comparison is made to exams dated: 05/24/2015 mammogram - [facility], 06/21/2015 mammogram, and 01/05/2016 mammogram - [facility]. The breasts are almost entirely fatty. There are benign appearing calcifications in both breasts. There also is a biopsy clip in the right breast. There is an asymmetry in the left breast middle depth inner region seen on the craniocaudal view only. Finding is best noted on tomographic CC slice 56. No other significant masses, calcifications, or other findings are seen in either breast. DIVISION OF RADIOLOGY Provider, [facility] - 12/26/2023 * * *Final Report* * * DATE OF EXAM: Dec 26 2023 8:53AM [id number] - [facility] SCREENING W LEELA / PROCEDURE REASON: * * * * Physician Interpretation * * * * RESULT: #[id number] - [facility] SCREENING W LEELA BILATERAL DIGITAL SCREENING MAMMOGRAM TOMOSYNTHESIS WITH CAD: 12/26/2023 HISTORY: /SEE TECH NOTE / /Screening Mammogram with LEELA - patient reports NO breast symptoms /priors available for comparison. RESULT: TECHNIQUE: The study was acquired using full field digital technology and interpreted from soft copy. Digital Breast Tomosynthesis (DBT) images were obtained and used to assist in the interpretation of this examination. Current study was also evaluated with a Computer Aided Detection (CAD). Comparison is made to exams dated: 05/24/2015 mammogram - [facility], 06/21/2015 mammogram, and 01/05/2016 mammogram - [facility]. The breasts are almost entirely fatty. There are benign appearing calcifications in both breasts. There also is a biopsy clip in the right breast. There is an asymmetry in the left breast middle depth inner region seen on the craniocaudal view only. Finding is best noted on tomographic CC slice 56. No other significant masses, calcifications, or other findings are seen in either breast. IMPRESSION IMPRESSION: INCOMPLETE: NEEDS ADDITIONAL IMAGING EVALUATION The asymmetry in the left breast is indeterminate. Additional views with possible ultrasound are recommended. The exam was reviewed by a staff physician. Serine Alfonso miller,ryann/jocelyn: 024 09:52:41 Tile Mechanic Helper(s): RT Radha(R)(M), [facility] letter sent: Additional Imaging Needed Mammogram BI-RADS: 0 Incomplete: needs additional imaging evaluation If this report indicates you need additional imaging, and it has NOT yet been performed, please call , to schedule. We sincerely thank you for choosing the [facility] for your breast imaging needs. Multiple national specialty organizations have released breast cancer screening guidelines for women at average risk for developing breast cancer - guidelines that are based on both evidence and opinion, yet differ on when to start and how often to screen for breast cancer. With representation from Breast Imaging, Internal Medicine, Women's Health, Family Medicine, and Medical/Surgical Oncology, the [facility] has carefully reviewed the data and reached the following consensus: 1) All women should engage in shared decision-making with their providers to decide when to start and how often to screen; 2) All women should have the opportunity to start screening mammography at age 40; 3) For women ages 45-55, we recommend annual screening mammograms; 4) For women ages 55 and over, we support both the transition from an annual to a biennial interval if this aligns more with patient's values and preferences, or continuation with annual screening; 5) All women should discuss with their providers when to stop screening mammograms. Closing Machine Operator: Jocelyn Transcrielias Date/Time: Dec 26 2023 8:06A Dictated by: MARY RICHTER, DO This examination was interpreted and the report reviewed and electronically signed by: JAMES KHALIL MD on Dec 26 2023 9:52AM EST [facility] Radiology Study observation (narrative) [facility] DBT Breast - bilateral scree ningOrdered By: [facility] Provider on 12-26-2023 [facility] Basophil percentageOrdered B y: Dwight Sampson on 10-03-2023 Basophil percentage 0 SEEN /hpf 0-5 [facility] Bilirubin Test strip Ql (U)O rdered By: Dwight Sampson on 10-03-2023 Bilirubin Ql (U) Negative Negative [facility] Culture, urineOrdered By: Dat Sampson on 10-03-2023 Bacteria identified Cx Nom (U) Positive [facility] Ketones Test strip Ql (U)Ord ered By: Dwight Sampson on 10-03-2023 Ketones Ql (U) Negative Negative [facility] Mucus LM Ql (Urine sed)Order ed By: Dwight Sampson on 10-03-2023 Mucus Ql (Urine sed) 0 SEEN /hpf [facility] Nitrite Test strip Ql (U)Ord ered By: Dwight Sampson on 10-03-2023 Nitrite Ql (U) Negative Negative [facility] No Panel InformationOrdered By: Dwight Sampson on 10-03-2023 Urine RBC 25-50 SEEN /hpf 0-5 [facility] Protein Test strip Ql (U)Ord ered By: Dwight Sampson on 10-03-2023 Protein Ql (U) 15 mg/dl Negative [facility] Squamous epithelial cells de tection in urine sediment by light microscopyOrdered By: Dwight Sampson on 10-03-2023 Epithelial cells.squamous LM Ql (Urine sed) 0-5 SEEN /hpf 5-10 [facility] Urine blood detectionOrdered By: Dwight Sampson on 10-03-2023 RBC Ql (U) 250 /ul Negative [facility] Urine clarityOrdered By: Ed Sampson on 10-03-2023 Clarity (U) Sl. Cloudy Clear [facility] Urine color determinationOrd ered By: Dwight Sampson on 10-03-2023 Color (U) Yellow Yellow [facility] Urine glucose detectionOrder ed By: Dwight Sampson on 10-03-2023 Glucose Ql (U) Normal mg/dl Normal [facility] Urine leukocyte esterase det ection by dipstickOrdered By: Dwight Sampson on 10-03-2023 Leukocyte esterase Test strip Ql (U) 25 /ul Negative [facility] Urine pHOrdered By: Millicent Sampson on 10-03-2023 pH (U) 6.5 [pH] 5.0 - 8.0 [facility] Urine sediment bacteria coun t by microscopy (number/high power field)Ordered By: Dwight Smapson on 10-03-2023 Bacteria LM.HPF (Urine sed) [#/Area] RARE /hpf None Seen [facility] Urine specific gravity measu rementOrdered By: Dwight Sampson on 10-03-2023 Specific gravity (U) [Rel density] 1.015 1.002-1.030 [facility] Urine urobilinogen measureme ntOrdered By: Dwight Sampson on 10-03-2023 Urobilinogen Ql (U) Normal mg/dl Normal [facility] Basophil percentageOrdered B y: Dwight Sampson on 05-22-2023 Chloride [Moles/Vol] 106 mmol/L 98-107 [facility] Glucose [Mass/Vol] 111 mg/dL 74-106 [facility] Comment on above: Fasting Glucose resu lt from 100 to 125 mg/dL suggests IMPAIRED HOMEOSTASIS per A.D.A. criteria. Potassium [Moles/Vol] 4.0 mmol/L 3.5-5.1 [facility] Sodium [Moles/Vol] 140 mmol/L 136-145 [facility] Laboratory - Chemistry and C hemistry - challengeOrdered By: Dwight Sampson on 05-22-2023 CO2 [Moles/Vol] 28.0 mmol/L 21.0-32.0 [facility] Cobalamin (Vitamin B12) [Mass/Vol] 625 pg/mL 211-911 [facility] Urea nitrogen/Creatinine [Mass ratio] 20.7 mg/mg 10-20 [facility] No Panel InformationOrdered By: Dwight Sampson on 05-22-2023 Estimated GFR (MDRD) Amer 84 mL/min >60 [facility] Comment on above: GFR Calc Estimated GFR (MDRD) Non-Af Amer 70 mL/min >60 [facility] Comment on above: Non- GFR Calc Thyroid Stimulating Hormone (TSH) 1.46 uIU/mL 0.358-3.74 [facility] Vitamin D 25-Hydroxy 77.8 ng/mL [facility] Comment on above: Vitamin D 25(OH) Sta tus Range Deficiency <20 ng/mL (50nmol/L) Insufficiency 20 - 30 ng/mL (50 - 75 nmol/L) Sufficiency 30 - 100 ng/mL (75 - 250 nmol/L) Toxicity >100 ng/mL (>250 nmol/L) Serum or plasma calcium dolly urement (mass/volume)Ordered By: Dwight Sampson on 05-22-2023 Calcium [Mass/Vol] 9.4 mg/dL 8.5-10.1 [facility] Serum or plasma creatinine m easurement (mass/volume)Ordered By: Dwight Sampson on 05-22-2023 Creatinine [Mass/Vol] 0.87 mg/dL 0.55-1.02 [facility] Comment on above: The validity of the calculated GFR & GFRAA in patients over 70 years has not been determined. Clinical correlation is essential. Serum or plasma urea nitroge n measurement (mass/volume)Ordered By: Dwight Sampson on 05-22-2023 Urea nitrogen [Mass/Vol] 18 mg/dL 7-18 [facility] Thin prep Papanicolaou smear with manual screeningOrdered By: Dwight Sampson on 05-22-2023 Thin prep Papanicolaou smear with manual screening 6 5-15 [facility] Thin prep Papanicolaou smear with manual screening 16.9 mg/L NO RANGE EST. [facility] Basophil percentageOrdered B y: Dr. Sampson on 11-14-2022 Bilirubin [Mass/Vol] 0.30 mg/dL 0.20-1.00 [facility] Comment on above: For patients on eltr ombopag therapy, use of Dimension [place] TBIL is not recommended. Chloride [Moles/Vol] 104 mmol/L 98-107 [facility] Cholesterol [Mass/Vol] 170 mg/dL <200 [facility] Comment on above: <200 mg/dL Desirable 200-240 mg/dL Borderline >240 mg/dL High Risk Glucose [Mass/Vol] 109 mg/dL 74-106 [facility] Comment on above: Fasting Glucose resu lt from 100 to 125 mg/dL suggests IMPAIRED HOMEOSTASIS per A.D.A. criteria. Potassium [Moles/Vol] 4.0 mmol/L 3.5-5.1 [facility] Protein [Mass/Vol] 8.2 g/dL 6.4-8.2 [facility] Sodium [Moles/Vol] 136 mmol/L 136-145 [facility] Triglyceride [Mass/Vol] 97 mg/dL <199 [facility] Comment on above: The drugs N-Acetylcy steine and Metamizole may falsely depress this assay.Serum Triglycerides Reference Interval Normal <150 mg/dL Borderline high 150 - 199 mg/dL High 200 - 499 mg/dL Very High > or = 500 mg/dL Laboratory - Chemistry and C hemistry - challengeOrdered By: Dr. Sampson on 11-14-2022 ALP [Catalytic activity/Vol] 75 U/L 45-117 [facility] ALT [Catalytic activity/Vol] 35 U/L 13-56 [facility] CO2 [Moles/Vol] 27.0 mmol/L 21.0-32.0 [facility] Globulin (S) [Mass/Vol] 4.8 g/dL 2.2-4.2 [facility] Urea nitrogen/Creatinine [Mass ratio] 16.0 mg/mg 10-20 [facility] No Panel InformationOrdered By: Dr. Sampson on 11-14-2022 Estimated GFR (MDRD) Amer 78 mL/min >60 [facility] Comment on above: GFR Calc Estimated GFR (MDRD) Non-Af Amer 64 mL/min >60 [facility] Comment on above: Non- GFR Calc Thyroid Stimulating Hormone (TSH) 1.77 uIU/mL 0.358-3.74 [facility] Serum or plasma albumin dolly urement (mass/volume)Ordered By: Dr. Sampson on 11-14-2022 Albumin [Mass/Vol] 3.4 g/dL 3.2-5.0 [facility] Serum or plasma albumin/glob ulin mass ratioOrdered By: Dr. Sampson on 11-14-2022 Albumin/Globulin [Mass ratio] 0.7 {ratio} 0.9-2.4 [facility] Serum or plasma calcium dolly urement (mass/volume)Ordered By: Dr. Sampson on 11-14-2022 Calcium [Mass/Vol] 9.7 mg/dL 8.5-10.1 [facility] Serum or plasma cholesterol in HDL measurement (mass/volume)Ordered By: Dr. Sampson on 11-14-2022 Cholesterol in HDL [Mass/Vol] 61 mg/dL >40 [facility] Comment on above: The drugs N-Acetylcy steine and Metamizole may falsely depress this assay. Reference Range HDL <40 mg/dL Low HDL Cholesterol HDL >or= 60 mg/dL High HDL Cholesterol Serum or plasma cholesterol in VLDL measurement (mass/volume)Ordered By: Dr. Sampson on 11-14-2022 Cholesterol in VLDL [Mass/Vol] 19 mg/dL 5-40 [facility] Serum or plasma creatinine m easurement (mass/volume)Ordered By: Dr. Sampson on 11-14-2022 Creatinine [Mass/Vol] 0.94 mg/dL 0.55-1.02 [facility] Comment on above: The validity of the calculated GFR & GFRAA in patients over 70 years has not been determined. Clinical correlation is essential. Serum or plasma low density lipoprotein (LDL) cholesterol measurement (mass/volume)Ordered By: Dr. Sampson on 11-14-2022 Cholesterol in LDL [Mass/Vol] 90 mg/dL 0-130 [facility] Serum or plasma urea nitroge n measurement (mass/volume)Ordered By: Dr. Sampson on 11-14-2022 Urea nitrogen [Mass/Vol] 15 mg/dL 7-18 [facility] Serum or plasma uric acid me asurement (mass/volume)Ordered By: Dr. Sampson on 11-14-2022 Urate [Mass/Vol] 5.2 mg/dL 2.6-6.0 [facility] Comment on above: The drugs N-Acetylcy steine and Metamizole may falsely depress this assay. Thin prep Papanicolaou smear with manual screeningOrdered By: Dr. Sampson on 11-14-2022 Thin prep Papanicolaou smear with manual screening 24 U/L 15-37 [facility] Thin prep Papanicolaou smear with manual screening 5 5-15 [facility] Basophil percentageon 2021 Bilirubin [Mass/Vol] 0.40 mg/dL 0.20-1.00 [facility] Work Phone: Comment on above: For patients on eltr ombopag therapy, use of [place] TBIL is not recommended. Chloride [Moles/Vol] 105 mmol/L 98-107 [facility] Work Phone: Glucose [Mass/Vol] 112 mg/dL 74-106 [facility] Work Phone: Comment on above: Fasting Glucose resu lt from 100 to 125 mg/dL suggests IMPAIRED HOMEOSTASIS per A.D.A. criteria. Potassium [Moles/Vol] 3.9 mmol/L 3.5-5.1 [facility] Work Phone: Protein [Mass/Vol] 8.2 g/dL 6.4-8.2 [facility] Work Phone: Sodium [Moles/Vol] 138 mmol/L 136-145 [facility] Work Phone: Laboratory - Chemistry and C hemistry - challengeon 05-16-2022 ALP [Catalytic activity/Vol] 67 U/L 45-117 [facility] Work Phone: ALT [Catalytic activity/Vol] 27 U/L 13-56 [facility] Work Phone: CO2 [Moles/Vol] 27.0 mmol/L 21.0-32.0 [facility] Work Phone: Cobalamin (Vitamin B12) [Mass/Vol] 650 pg/mL 211-911 [facility] Work Phone: Globulin (S) [Mass/Vol] 4.7 g/dL 2.2-4.2 [facility] Work Phone: Urea nitrogen/Creatinine [Mass ratio] 20.5 mg/mg 10-20 [facility] Work Phone: No Panel Informationon 05-16 Estimated GFR (MDRD) Amer 79 mL/min >60 [facility] Work Phone: Comment on above: GFR Calc Estimated GFR (MDRD) Non-Af Amer 65 mL/min >60 [facility] Work Phone: Comment on above: Non- GFR Calc Vitamin D 25-Hydroxy 90.9 ng/mL [facility] Work Phone: Comment on above: Vitamin D 25(OH) Sta tus Range Deficiency <20 ng/mL (50nmol/L) Insufficiency 20 - 30 ng/mL (50 - 75 nmol/L) Sufficiency 30 - 100 ng/mL (75 - 250 nmol/L) Toxicity >100 ng/mL (>250 nmol/L) Serum or plasma albumin dolly urement (mass/volume)on 05-16-2022 Albumin [Mass/Vol] 3.5 g/dL 3.2-5.0 [facility] Work Phone: Serum or plasma albumin/glob ulin mass ratioon 05-16-2022 Albumin/Globulin [Mass ratio] 0.7 {ratio} 0.9-2.4 [facility] Work Phone: Serum or plasma calcium dolly urement (mass/volume)on 05-16-2022 Calcium [Mass/Vol] 9.5 mg/dL 8.5-10.1 [facility] Work Phone: Serum or plasma creatinine m easurement (mass/volume)on 05-16-2022 Creatinine [Mass/Vol] 0.93 mg/dL 0.55-1.02 [facility] Work Phone: Comment on above: The validity of the calculated GFR & GFRAA in patients over 70 years has not been determined. Clinical correlation is essential. Serum or plasma urea nitroge n measurement (mass/volume)on 05-16-2022 Urea nitrogen [Mass/Vol] 19 mg/dL 7-18 [facility] Work Phone: Serum or plasma uric acid me asurement (mass/volume)on 05-16-2022 Urate [Mass/Vol] 8.6 mg/dL 2.6-6.0 [facility] Work Phone: Comment on above: The drugs N-Acetylcy steine and Metamizole may falsely depress this assay. Thin prep Papanicolaou smear with manual screeningon 05-16-2022 Thin prep Papanicolaou smear with manual screening 18 U/L 15-37 [facility] Work Phone: Thin prep Papanicolaou smear with manual screening 6 5-15 [facility] Work Phone: Basophil percentageon 2021 Bilirubin [Mass/Vol] 0.30 mg/dL 0.20-1.00 [facility] Work Phone: Comment on above: For patients on eltr ombopag therapy, use of [place] TBIL is not recommended. Chloride [Moles/Vol] 103 mmol/L 98-107 [facility] Work Phone: Cholesterol [Mass/Vol] 153 mg/dL <200 [facility] Work Phone: Comment on above: <200 mg/dL Desirable 200-240 mg/dL Borderline >240 mg/dL High Risk Glucose [Mass/Vol] 177 mg/dL 74-106 [facility] Work Phone: Comment on above: Fasting Glucose resu lt greater than or equal to 126 mg/dL suggests DIABETES MELLITUS per A.D.A. criteria. Potassium [Moles/Vol] 3.8 mmol/L 3.5-5.1 [facility] Work Phone: Protein [Mass/Vol] 8.0 g/dL 6.4-8.2 [facility] Work Phone: Sodium [Moles/Vol] 138 mmol/L 136-145 [facility] Work Phone: Triglyceride [Mass/Vol] 182 mg/dL <199 [facility] Work Phone: Comment on above: The drugs N-Acetylcy steine and Metamizole may falsely depress this assay.Serum Triglycerides Reference Interval Normal <150 mg/dL Borderline high 150 - 199 mg/dL High 200 - 499 mg/dL Very High > or = 500 mg/dL WBC (Bld) [#/Vol] 7.1 10*3/uL 4.4-11.0 [facility] Work Phone: Blood erythrocytes count (nu mber/volume)on 01-16-2022 RBC (Bld) [#/Vol] 4.27 10*6/uL 4.2-5.4 [facility] Work Phone: Blood hemoglobin measurement (mass/volume)on 01-16-2022 Hemoglobin (Bld) [Mass/Vol] 12.2 g/dL 12.0-15.0 [facility] Work Phone: Blood platelet mean volumeon 01-16-2022 Platelet mean volume (Bld) [Entitic vol] 12.1 fL 6.2-12.0 [facility] Work Phone: Determination of erythrocyte mean corpuscular volume (MCV)on 01-16-2022 MCV (RBC) [Entitic vol] 89.7 fL 81-99 [facility] Work Phone: Hematocrit Auto (Bld) [Volum e fraction]on 01-16-2022 Hematocrit (Bld) [Volume fraction] 38.3 % 37-47 [facility] Work Phone: Laboratory - Chemistry and C hemistry - challengeon 01-16-2022 ALP [Catalytic activity/Vol] 67 U/L 45-117 [facility] Work Phone: ALT [Catalytic activity/Vol] 37 U/L 13-56 [facility] Work Phone: CO2 [Moles/Vol] 27.0 mmol/L 21.0-32.0 [facility] Work Phone: Cobalamin (Vitamin B12) [Mass/Vol] 822 pg/mL 211-911 [facility] Work Phone: Globulin (S) [Mass/Vol] 4.7 g/dL 2.2-4.2 [facility] Work Phone: Urea nitrogen/Creatinine [Mass ratio] 19.2 mg/mg 10-20 [facility] Work Phone: Laboratory - Hematology and Cell countson 01-16-2022 Erythrocyte distribution width (RBC) [Entitic vol] 45.1 fL 35.1-43.9 [facility] Work Phone: Erythrocyte distribution width (RBC) [Ratio] 13.8 % 11.6-14.6 [facility] Work Phone: MCH (RBC) [Entitic mass] 28.6 pg 27.0-32.0 [facility] Work Phone: MCHC Auto (RBC) [Mass/Vol]on 01-16-2022 MCHC (RBC) [Mass/Vol] 31.9 g/dL 32-36 [facility] Work Phone: No Panel Informationon 01-16 Estimated GFR (MDRD) Amer 78 mL/min >60 [facility] Work Phone: Comment on above: GFR Calc Estimated GFR (MDRD) Non-Af Amer 65 mL/min >60 [facility] Work Phone: Comment on above: Non- GFR Calc Thyroid Stimulating Hormone (TSH) 2.16 uIU/mL 0.358-3.74 [facility] Work Phone: Vitamin D 25-Hydroxy 90.8 ng/mL [facility] Work Phone: Comment on above: Vitamin D 25(OH) Sta tus Range Deficiency <20 ng/mL (50nmol/L) Insufficiency 20 - 30 ng/mL (50 - 75 nmol/L) Sufficiency 30 - 100 ng/mL (75 - 250 nmol/L) Toxicity >100 ng/mL (>250 nmol/L) Platelets bldon 01-16-2022 Platelets (Bld) [#/Vol] 205 10*3/uL 150-450 [facility] Work Phone: Serum or plasma albumin dolly urement (mass/volume)on 01-16-2022 Albumin [Mass/Vol] 3.3 g/dL 3.2-5.0 [facility] Work Phone: Serum or plasma albumin/glob ulin mass ratioon 01-16-2022 Albumin/Globulin [Mass ratio] 0.7 {ratio} 0.9-2.4 [facility] Work Phone: Serum or plasma calcium dolly urement (mass/volume)on 01-16-2022 Calcium [Mass/Vol] 9.0 mg/dL 8.5-10.1 [facility] Work Phone: Serum or plasma cholesterol in HDL measurement (mass/volume)on 01-16-2022 Cholesterol in HDL [Mass/Vol] 47 mg/dL >40 [facility] Work Phone: Comment on above: The drugs N-Acetylcy steine and Metamizole may falsely depress this assay. Reference Range HDL <40 mg/dL Low HDL Cholesterol HDL >or= 60 mg/dL High HDL Cholesterol Serum or plasma cholesterol in VLDL measurement (mass/volume)on 01-16-2022 Cholesterol in VLDL [Mass/Vol] 36 mg/dL 5-40 [facility] Work Phone: Serum or plasma creatinine m easurement (mass/volume)on 01-16-2022 Creatinine [Mass/Vol] 0.94 mg/dL 0.55-1.02 [facility] Work Phone: Comment on above: The validity of the calculated GFR & GFRAA in patients over 70 years has not been determined. Clinical correlation is essential. Serum or plasma low density lipoprotein (LDL) cholesterol measurement (mass/volume)on 01-16-2022 Cholesterol in LDL [Mass/Vol] 70 mg/dL 0-130 [facility] Work Phone: Serum or plasma urea nitroge n measurement (mass/volume)on 01-16-2022 Urea nitrogen [Mass/Vol] 18 mg/dL 7-18 [facility] Work Phone: Serum or plasma uric acid me asurement (mass/volume)on 01-16-2022 Urate [Mass/Vol] 8.0 mg/dL 2.6-6.0 [facility] Work Phone: Comment on above: The drugs N-Acetylcy steine and Metamizole may falsely depress this assay. Thin prep Papanicolaou smear with manual screeningon 01-16-2022 Thin prep Papanicolaou smear with manual screening 24 U/L 15-37 [facility] Work Phone: Thin prep Papanicolaou smear with manual screening 8 5-15 [facility] Work Phone: .GFRon 08-01-2019 GFR 60 ml/min/1.73sqm Normal [facility] ([place]) Comment on above: Result Comment: GFR Population mean for , Non- Americans Ages 20-29 = 116 mL/min/1.73 sq.m. Ages 30-39 = 107 mL/min/1.73 sq.m. Ages 40-49 = 99 mL/min/1.73 sq.m. Ages 50-59 = 93 mL/min/1.73 sq.m. Ages 60-69 = 85 mL/min/1.73 sq.m. Ages 70+ = 75 mL/min/1.73 sq.m. Chronic Kidney Disease: Less than 60 mL/min/1.73 square meters End Stage Renal Disease: Less than 15 mL/min/1.73 square meters Performed By: #### C BC, DIFF, MORPH #### [address] [address] #### CMP, GFR #### [address] [address] GFR Non- 50 ml/min/1.73sqm [facility] ([place]) Comment on above: Result Comment: GFR Population mean for , Non- Americans Ages 20-29 = 116 mL/min/1.73 sq.m. Ages 30-39 = 107 mL/min/1.73 sq.m. Ages 40-49 = 99 mL/min/1.73 sq.m. Ages 50-59 = 93 mL/min/1.73 sq.m. Ages 60-69 = 85 mL/min/1.73 sq.m. Ages 70+ = 75 mL/min/1.73 sq.m. Chronic Kidney Disease: Less than 60 mL/min/1.73 square meters End Stage Renal Disease: Less than 15 mL/min/1.73 square meters Performed By: #### C BC, DIFF, MORPH #### [address] [address] #### CMP, GFR #### [address] [address] .Manual Diffon 08-01-2019 Atypical Lymphs 17.0 % High 0.0-5.0 [facility] ([place]) Comment on above: Performed By: #### C BC, DIFF, MORPH #### [address] [address] #### CMP, GFR #### [address] [address] Basophil %, Manual 0.0 % Normal 0.0-2.5 [facility] ([place]) Comment on above: Performed By: #### C BC, DIFF, MORPH #### [place] [address] #### CMP, GFR #### [address] [address] Basophil, Abs Manual 0.00 10 3/mcL Normal 0.00-0.19 A [facility] ([place]) Comment on above: Performed By: #### C BC, DIFF, MORPH #### [place] [address] #### CMP, GFR #### [address] [address] Eosinophil %, Manual 0.0 % Normal 0.0-7.0 [facility] ([place]) Comment on above: Performed By: #### C BC, DIFF, MORPH #### [place] [address] #### CMP, GFR #### [address] [address] Eosinophil, Abs Manual 0.00 10 3/mcL Normal 0.00-0.40 [facility] ([place]) Comment on above: Performed By: #### C BC, DIFF, MORPH #### [place] [address] #### CMP, GFR #### [address] [address] Lymphocyte %, Manual 16.0 % Normal 10.0-50.0 [facility] ([place]) Comment on above: Performed By: #### C BC, DIFF, MORPH #### [place] [address] #### CMP, GFR #### [address] [address] Lymphocyte, Abs Manual 3.20 10 3/mcL Normal 0.77-3.85 [facility] ([place]) Comment on above: Performed By: #### C BC, DIFF, MORPH #### [place] [address] #### CMP, GFR #### [address] [address] Monocyte %, Manual 6.0 % Normal 1.7-13.0 [facility] ([place]) Comment on above: Performed By: #### C BC, DIFF, MORPH #### [place] [address] #### CMP, GFR #### [place] [address] Monocyte, Abs Manual 0.60 10 3/mcL Normal 0.15-1.00 A [facility] ([place]) Comment on above: Performed By: #### C BC, DIFF, MORPH #### [place] [address] #### CMP, GFR #### [place] [address] Neutrophil %, Manual 61.0 % Normal 37.0-80.0 [facility] ([place]) Comment on above: Performed By: #### C BC, DIFF, MORPH #### [place] [address] #### CMP, GFR #### [place] [address] Neutrophil, Abs Manual 5.90 10 3/mcL Normal 2.85-6.16 [facility] ([place]) Comment on above: Performed By: #### C BC, DIFF, MORPH #### [place] [address] #### CMP, GFR #### [place] [address] .Morphon 08-01-2019 Platelets (Bld) [#/Vol] Normal Normal A [facility] ([place] Comment on above: Performed By: #### C BC, DIFF, MORPH #### [address] [address] #### CMP, GFR #### [place] [address] Stomatocytes Several Normal [facility] ([place]) Comment on above: Performed By: #### C BC, DIFF, MORPH #### [address] [address] #### CMP, GFR #### [place] [address] .Urinalysis Microscopic (AO) on 08-01-2019 RBC (U) [#/Vol] 0-5 None Seen [facility] ([place]) Comment on above: Performed By: #### U A, UAMICAO #### [place] [address] UA Bacteria 1+ /hpf [facility] ([place]) Comment on above: Performed By: #### U A, UAMICAO #### [place] [address] UA Squam Epithelial 5-10 None Seen Pending sale to [facility] ([place]) Comment on above: Performed By: #### U A, UAMICAO #### [place] [address] UA WBC 5-10 None Seen [facility] ([place]) Comment on above: Performed By: #### U A, UAMICAO #### [place] [address] CBCon 08-01-2019 Erythrocyte distribution width (RBC) [Ratio] 14.0 % Normal 11.5-14.5 [facility] ([place]) Comment on above: Performed By: #### C BC, DIFF, MORPH #### [place] [address] #### CMP, GFR #### [place] [address] Hematocrit (Bld) [Volume fraction] 39.5 % Normal 37.0-47.0 [facility] ([place] Comment on above: Performed By: #### C BC, DIFF, MORPH #### [address] [address] #### CMP, GFR #### [address] [address] Hemoglobin (Bld) [Mass/Vol] 13.0 G/dL Normal 12.0-16.0 [facility] ([place] Comment on above: Performed By: #### C BC, DIFF, MORPH #### [place] [address] #### CMP, GFR #### [address] [address] MCH (RBC) [Entitic mass] 28.2 pg Normal 27.0-31.2 [facility] ([place] Comment on above: Performed By: #### C BC, DIFF, MORPH #### [place] [address] #### CMP, GFR #### [place] [address] MCHC (RBC) [Mass/Vol] 32.9 G/dL Low 33.0-37.0 [facility] ([place]) Comment on above: Performed By: #### C BC, DIFF, MORPH #### [place] [address] #### CMP, GFR #### [address] [address] MCV (RBC) [Entitic vol] 86.0 fL Normal 80.0-94.0 [facility] ([place]) Comment on above: Performed By: #### C BC, DIFF, MORPH #### [place] [address] #### CMP, GFR #### [address] [address] Platelet mean volume (Bld) [Entitic vol] 9.1 fL Normal 7.4-10.4 [facility] ([place]) Comment on above: Performed By: #### C BC, DIFF, MORPH #### [place] [address] #### CMP, GFR #### [address] [address] Platelets (Bld) [#/Vol] 205 10 3/mcL Normal 130-400 [facility] ([place]) Comment on above: Performed By: #### C BC, DIFF, MORPH #### [address] [address] #### CMP, GFR #### [address] [address] RBC (Bld) [#/Vol] 4.60 10 6/mcL Normal 4.20-5.40 [facility] ([place]) Comment on above: Performed By: #### C BC, DIFF, MORPH #### [place] [id number] #### CMP, GFR #### [address] [address] WBC (Bld) [#/Vol] 9.60 10 3/mcL Normal 4.60-10.80 [facility] ([place]) Comment on above: Performed By: #### C BC, DIFF, MORPH #### [address] [address] #### CMP, GFR #### [place] [address] CMPon 08-01-2019 Albumin [Mass/Vol] 3.8 G/dL Normal 3.5-5.0 [facility] ([place]) Comment on above: Performed By: #### C BC, DIFF, MORPH #### [address] [address] #### CMP, GFR #### [address] [address] Albumin/Globulin [Mass ratio] 0.8 {ratio} Low 1.1-2.5 [facility] ([place] Comment on above: Performed By: #### C BC, DIFF, MORPH #### [address] [address] #### CMP, GFR #### [address] [address] ALP [Catalytic activity/Vol] 91 U/L Normal 40-135 [facility] ([place] Comment on above: Performed By: #### C BC, DIFF, MORPH #### [address] [address] #### CMP, GFR #### [address] [address] ALT [Catalytic activity/Vol] 32 U/L Normal 10-35 [facility] ([place] Comment on above: Performed By: #### C BC, DIFF, MORPH #### [address] [address] #### CMP, GFR #### [address] [address] AST [Catalytic activity/Vol] 17 U/L Normal 10-40 [facility] ([place] Comment on above: Performed By: #### C BC, DIFF, MORPH #### [place] [address] #### CMP, GFR #### [address] [address] Bili Total 0.4 mg/dL Normal 0.2-1.0 [facility] ([place] Comment on above: Performed By: #### C BC, DIFF, MORPH #### [address] [address] #### CMP, GFR #### [address] [address] Calcium [Mass/Vol] 9.5 mg/dL Normal 8.4-10.2 [facility] ([place] Comment on above: Performed By: #### C BC, DIFF, MORPH #### [place] [address] #### CMP, GFR #### [address] [address] Chloride [Moles/Vol] 103 mmol/L Normal 98-107 [facility] ([place] Comment on above: Performed By: #### C BC, DIFF, MORPH #### [address] [address] #### CMP, GFR #### [address] [address] CO2 [Moles/Vol] 30 mmol/L High 22-29 [facility] ([place] Comment on above: Performed By: #### C BC, DIFF, MORPH #### [address] [address] #### CMP, GFR #### [address] [address] Creatinine [Mass/Vol] 1.12 mg/dL High 0.55-1.02 [facility] ([place]) Comment on above: Performed By: #### C BC, DIFF, MORPH #### [address] [address] #### CMP, GFR #### [address] [address] Electrolyte Balance 9.0 mEq/L Normal Pending sale to [facility] ([place] Comment on above: Performed By: #### C BC, DIFF, MORPH #### [address] [address] #### CMP, GFR #### [address] [address] Globulin (S) [Mass/Vol] 4.6 G/dL Normal A [facility] ([place]) Comment on above: Performed By: #### C BC, DIFF, MORPH #### [address] [address] #### CMP, GFR #### [address] [address] Glucose [Mass/Vol] 170 mg/dL High 70-105 [facility] ([place] Comment on above: Performed By: #### C BC, DIFF, MORPH #### [address] [address] #### CMP, GFR #### [address] [address] Potassium [Moles/Vol] 4.0 mmol/L Normal 3.5-5.1 [facility] ([place]) Comment on above: Performed By: #### C BC, DIFF, MORPH #### [address] [address] #### CMP, GFR #### [address] [address] Protein [Mass/Vol] 8.4 G/dL High 6.4-8.2 [facility] ([place] Comment on above: Performed By: #### C BC, DIFF, MORPH #### [address] [address] #### CMP, GFR #### [address] [address] Sodium [Moles/Vol] 142 mmol/L Normal 136-145 [facility] ([place] Comment on above: Performed By: #### C BC, DIFF, MORPH #### [address] [address] #### CMP, GFR #### [address] [address] Urea nitrogen [Mass/Vol] 17 mg/dL Normal 7-18 [facility] ([place]) Comment on above: Performed By: #### C BC, DIFF, MORPH #### [address] [address] #### CMP, GFR #### [address] [address] Urea nitrogen/Creatinine [Mass ratio] 15 ratio Normal 7-27 [facility] ([place]) Comment on above: Performed By: #### C BC, DIFF, MORPH #### [address] [address] #### CMP, GFR #### [address] [address] [address] ABD/PELVIS W/ IV CONTRAST ONLYon 08-01-2019 CT ABD/PELVIS W/ IV CONTRAST ONLY ORIGINAL CT ABDOMEN/PELVIS WITH IV CONTRAST: Multiplanar coronal, sagittal, and axial reconstructions were reviewed on a separate workstation This exam was performed according to our departmental dose optimization program, and includes the following measures where applicable: automated exposure control, adjustment of the mAs and/or kVp according to patient size and/or exam, and an iterative reconstruction algorithm. CLINICAL STATEMENT: pain of lower abdomen for 2 days. Intermittent symptoms. COMPARISON: None FINDINGS: The liver is unremarkable borderline enlarged measuring 21 cm and is unremarkable in contour. Suspected areas of fatty sparing are noted adjacent to the gallbladder fossa and fissure for falciform ligament. There is no intra or extrahepatic biliary duct dilation. No focal mass identified. The gallbladder, pancreas, spleen, bilateral adrenal glands are unremarkable. The kidneys enhance symmetrically without evidence of hydronephrosis or mass. The ureters are normal course and caliber. The visualized esophagus and duodenum are unremarkable. Postoperative changes are noted of the greater curvature of the stomach related to gastric sleeve procedure. The visualized aorta is atherosclerotic and nonaneurysmal. The visualized IVC is unremarkable.. The small bowel exhibits no acute abnormalities. The involving the distal descending colon/proximal sigmoid colon, there is wall thickening and adjacent pericolonic stranding. There are multiple diverticula in this region. There is no gross free air or free fluid. The appendix is normal. No pathologically enlarged retroperitoneal, mesenteric, or pelvic lymph nodes are identified. The urinary bladder is well-distended without wall thickening or focal mass. The uterus is surgically absent. Phleboliths are noted of the pelvis. Small fat-containing umbilical hernia. No suspicious osteolytic or osteoblastic lesions are identified. Degenerative changes are noted of the spine. Provided images of the lower thorax reveal linear atelectasis or scarring of the LEFT lower lobe. Small right Bochdalek hernia. IMPRESSION: Acute uncomplicated short segment diverticulitis of the distal descending/proximal sigmoid colon. Fatty liver. I have personally reviewed the images of this examination and agree with the resident's findings and interpretation. Interpreted By: Salena Israel MD Preliminary Report By: Frank Munoz DO Electronically Signed By: Salena Israel MD Dictated Date: 08/01/2019 3:30:06 PM Prelim Date: 08/01/2019 3:36:34 PM Sign Date: 08/01/2019 3:52:48 PM Ordering Provider:Mayra Higginbotham [facility] ([place]) UAon 08-01-2019 Color (U) Yellow [facility] ([place]) Comment on above: Performed By: #### U A, UAMICAO #### [place] [address] Glucose (U) [Mass/Vol] mg/dL Negative [facility] ([place]) Comment on above: Performed By: #### U A, UAMICAO #### [place] [address] Ketones Ql (U) Negative Normal Negative [facility] ([place]) Comment on above: Performed By: #### U A, UAMICAO #### [place] [address] UA Appear Slightly Cloudy Clear [facility] ([place]) Comment on above: Performed By: #### U A, UAMICAO #### [place] [address] UA Blood Trace Negative [facility] ([place] Comment on above: Performed By: #### U A, UAMICAO #### [place] [address] UA Leuk Est Trace Negative [facility] [place] Comment on above: Performed By: #### U A, UAMICAO #### [place] [address] UA Nitrite Negative Normal Negative [facility] ([place] Comment on above: Performed By: #### U A, UAMICAO #### [place] [address] UA pH 5.5 Normal 5.0 - 8.0 [facility] ([place] Comment on above: Performed By: #### U A, UAMICAO #### [place] [address] UA Protein Negative Normal Negative [facility] ([place] Comment on above: Performed By: #### U A, UAMICAO #### [place] [address] UA Spec Grav 1.020 Normal 1.015-1.025 [facility] ([place]) Comment on above: Performed By: #### U A, UAMICAO #### [place] [address] UA Specimen Type Clean Catch Normal [facility] ([place] Comment on above: Performed By: #### U A, UAMICAO #### [facility] [place] [address] [place] [address] UA Urobilinogen 0.2 E.U./dL Normal 0.2-1.0 [facility] ([place]) Comment on above: Performed By: #### U A, UAMICAO #### [facility] [address] [place] [address] Urobilinogen Qn (U) Negative Normal Negative Pending sale to [facility] ([place]) Comment on above: Performed By: #### U A, UAMICAO #### [address] [address] Vital Signs Date Time Vital Sign Value Performing Clinician Facility 03-02-2025 08:26-0400 Body weight 108.[address] Annalise Sampson MD Work Phone: [facility] 03-02-2025 08:26-0400 Diastolic blood pressure 83 mm[Hg] Dr. Annalise Sampson MD Work Phone: [facility] 03-02-2025 08:26-0400 Heart rate 75 /min Dr. Annalise Sampson MD Work Phone: [facility] 03-02-2025 08:26-0400 Respiratory rate 17 /min Dr. Annalise Sampson MD Work Phone: [facility] 03-02-2025 08:26-0400 SaO2% (BldA) [Mass fraction] 98 % Dr. Annalise Sampson MD Work Phone: [facility] 03-02-2025 08:26-0400 Systolic blood pressure 146 mm[Hg] Dr. Annalise Sampson MD Work Phone: [facility] 02-15-2025 08:23-0400 Body temperature 97.6 [degF] Dr. Annalise Sampson MD Work Phone: [facility] 02-15-2025 08:23-0400 Diastolic blood pressure 94 mm[Hg] Dr. Annalise Sampson MD Work Phone: [facility] 02-15-2025 08:23-0400 Heart rate 83 /min Dr. Annalise Sampson MD Work Phone: [facility] 02-15-2025 08:23-0400 Respiratory rate 14 /min Dr. Annalise Sampson MD Work Phone: [facility] 02-15-2025 08:23-0400 Systolic blood pressure 189 mm[Hg] Dr. Annalise Sampson MD Work Phone: [facility] 01-24-2025 13:18-0400 Body temperature 98.49 [degF] Nina Clutter PA-C Work Phone: [facility] 01-24-2025 13:18-0400 Body weight 110 kg Nina Clutter PA-C Work Phone: [facility] 01-24-2025 13:18-0400 Diastolic blood pressure 109 mm[Hg] Nina Clutter PA-C Work Phone: [facility] Comment on above: has not taken her medications today 01-24-2025 13:18-0400 Heart rate 74 /min Nina Clutter PA-C Work Phone: [facility] 01-24-2025 13:18-0400 Respiratory rate 20 /min Nina Clutter PA-C Work Phone: [facility] 01-24-2025 13:18-0400 SaO2% (BldA) [Mass fraction] 99 % Nina Clutter PA-C Work Phone: [facility] 01-24-2025 13:18-0400 Systolic blood pressure 188 mm[Hg] Nina Clutter PA-C Work Phone: [facility] Comment on above: has not taken her medications today Encounters Encounter Date Encounter Type Care Provider Facility Start: 03-02-2025 End: 03-02-[address] Annalise Sampson MD Work Phone: [facility] Start: 03-02-2025 End: 03-02-[address] Dhaval Mccarthy MD -[facility] Work Phone: Start: 02-23-2025 End: 02-23-[address] Annalise Sampson MD Work Phone: [facility] Start: 02-23-2025 End: 02-23-[address] Annalise Sampson MD [facility] Work Phone: Start: 02-23-2025 End: 02-23-2025 ambulatory Annalise Sampson Facility:[facility] Start: 02-15-2025 ambulatory [place] Facility: [facility] Start: 02-15-2025 Non-patient / Non-visit [facility] Start: 02-15-2025 End: 02-18-[address] Raul Poon MD -[facility] Work Phone: Start: 02-15-2025 End: 02-18-[address] Annalise Sampson MD Work Phone: [facility] Start: 01-24-2025 End: 01-24-2025 ambulatory ANNALISE SAMPSON Facility:[facility] Start: 01-24-2025 End: 01-24-2025 Office outpatient new 30 minutes Nina Hoskins PA-C Work Phone: [facility] Comment on above: Cutaneous abscess of back excluding buttocks (Primary Dx) Start: 01-01-2025 ambulatory ANNALISE SAMPSON Fa cility:[facility] Start: 01-01-2025 End: 01-01-2025 Subsequent hospital visit by physician Screen Mammo [facility] Start: 06-16-2024 End: 06-16-2024 ambulatory Annalise Sampson Facility:[facility] Start: 01-22-2024 End: 01-22-2024 Subsequent hospital visit by physician Diagnostic Mammo [facility] Start: 12-26-2023 End: 12-26-2023 Subsequent hospital visit by physician Screen Mammo [facility] Start: 10-03-2023 End: 10-03-2023 ambulatory [facility] Work Phone: Start: 10-03-2023 End: 10-03-2023 Patient encounter procedure [facility] Start: 05-22-2023 End: 05-22-2023 ambulatory [facility] Work Phone: Start: 05-22-2023 End: 05-22-2023 Patient encounter procedure [facility] Work Phone: Start: 11-14-2022 End: 11-14-2022 ambulatory [facility] Work Phone: Start: 11-14-2022 End: 11-14-2022 Patient encounter procedure [facility] Start: 05-16-2022 End: 05-16-2022 ambulatory [facility] Work Phone: Start: 05-16-2022 End: 05-16-2022 Patient encounter procedure [facility] Start: 01-16-2022 End: 01-16-2022 Patient encounter procedure [facility] Start: 01-12-2022 End: 01-12-2022 Patient encounter procedure [facility] Start: 07-31-2018 Patient encounter procedure UNKNOWN PROVIDER [facility] Start: 01-13-2018 Patient encounter procedure UNKNOWN PROVIDER [facility] Start: 08-01-2017 Patient encounter procedure UNKNOWN PROVIDER [facility] Procedures Date Procedure Procedure Detail Performing Clinician Start: 02-23-[address] Annalise Sampson MD Work Phone: Start: 01-01-2025 Screening digital br east tomosynthesis bi Annalise Sampson MD Work Phone: Start: 01-22-2024 Us breast uni real t jb with image limited [facility] Start: 01-22-2024 Digital breast tomos ynthesis unilateral [facility] Start: 12-26-2023 Screening digital br east tomosynthesis bi [facility] Start: 10-03-2023 Urine culture Start: 01-12-2022 Screening mammography Plan of Treatment Date Care Activity Detail Author Start: 07-03-2028 Urine microalbumin profile DTaP,Tdap,Td Vaccine (2 - Td or Tdap) [facility] Start: 04-04-2026 Pneumococcal Vaccine: 50+ (3 of 3 - PCV20 or PCV21) Pneumococcal Vaccine: 50+ (3 of 3 - PCV20 or PCV21) [facility] Start: 01-01-2026 Screening for malignant neoplasm of breast Mammogram Screening [facility] Start: 03-22-2025 Influenza vaccination [facility] Start: 03-08-2025 ambulatory Ambulatory Facility:[facility] Start: 12-25-2024 Screening for malignant neoplasm of breast Mammogram Screening [facility] Start: 03-22-2024 Covid-19 Vaccine ( season) Covid-19 Vaccine ( season) [facility] Start: 03-22-2024 Influenza vaccination [facility] Start: 07-22-2023 Behavioral Health Screening Behavioral Health Screening [facility] Start: 03-22-2023 Covid-19 Vaccine ( season) Covid-19 Vaccine ( season) [facility] Start: 05-30-2021 Shingrix Vaccine (2 of 2) Shingrix Vaccine (2 of 2) [facility] Start: 2020 RSV Vaccine (1 - 1-dose 60+ series) RSV Vaccine (1 - 1-dose 60+ series) [facility] Start: 2020 RSV Vaccine (1 - Risk 60-74 years 1-dose series) RSV Vaccine (1 - Risk 60-74 years 1-dose series) [facility] Start: 02-20-2005 Diabetes Screening Diabetes Screening [facility] Start: 02-20-2005 Lipid panel Lipid Screening [facility] Start: 02-20-2005 Screening for malignant neoplasm of colon [facility] Start: 02-20-1990 Screening for malignant neoplasm of cervix HPV Testing [facility] Start: 02-20-1981 Screening for malignant neoplasm of cervix [facility] Start: 02-20-1978 Anxiety Screening Anxiety Screening [facility] Start: 02-20-1978 Depression Screening Depression Screening [facility] Start: 02-20-1978 Hepatitis C screening Hepatitis C Screening [facility] Start: 02-20-1978 HIV screening HIV Screening [facility] Immunizations Immunization Date Immunization Notes Care Provider Fa ramonty 08-17-2019 influenza virus vacc ine, unspecified formulation Screen [facility]str [facility] Payers Date Payer Category Payer Self-pay [id number] 2023 Unknown 2022 Unknown [id number] 2021 [facility] 1.2.8 [id number] 2021 Unknown [id number] 1960 Unknown [id number] 2.16.8 [id number] 1960 Unknown [id number] 2.16.8 [id number] 1960 Unknown [id number] 2.16.8 [id number] Unknown [id number] Unknown [id number] 2.16.8 [id number] Unknown [id number] 2.16.8 [id number] Unknown [id number] 2.16.8 [id number] Unknown [id number] Unknown [id number] Social History Date Type Detail [facility] Work Phone: Start: 1960 Sex Assigned At Female W [facility] Start: 01-19-2016 End: 01-24-2025 Tobacco smoking status NHIS Ex-smoker [facility] End: 07-22-2002 History of tobacco use Current smoker [facility] End: 07-22-2002 History of tobacco use Cigarette Smoker [facility] Start: 01-27-2016 End: 01-24-2025 Alcohol intake Current drinker of alcohol (finding) [facility] Start: 1960 Sex Assigned At Not on file [facility] Start: 01-22-2024 End: 01-01-2025 Gender identity Not on file [facility] Start: 01-22-2024 End: 01-01-2025 History of Social function [facility] National Score (1-10 0), lower number is lower risk 70 [facility] Start: 01-21-2024 Gender identity Identifies as female gender (finding) [facility] Start: 01-21-2024 Sexual orientation Heterosexual (fin beni) [facility] Tobacco smoking stat us [facility] Unknown if ever smoked [facility] Work Phone: Clinical Notes 12-26-2023 to 03-02-2025 Note Date & Type Note Facility 03-02-2025 Progress note [facility] 03-02-2025 Progress note Note Date/Time March 02, 2025 8:28am [facility] [address] [place] [address]. [address] [place] [address] OFFICE VISIT Date of Service: 03/02/25 MR#: [id number] Acct: [id number] Name: MARION DUNCAN Rep #: [id number] : 1960 Provider: Dr. Keith Mccarthy MD Age/Sex: 65/F Location: [facility] Status: Signed Intake Vital Signs 03/02/25 08:26 Weight: 240 lb BP 146/83 H Blood Pressure Location Rt brachial Position Sitting Respiration 17 Pulse 75 Pulse Source Monitor Pulse Oximetry (%) 98 Oxygen Delivery Method room air Intake Visit Reasons: BIRADS 4 Chief Complaint: birads 4 Is patient in pain?: No Allergies acetaminophen (From Percocet) Allergy (Intermediate, Verified 03/02/25 08:27) Hives oxycodone (From Percocet) Allergy (Intermediate, Verified 03/02/25 08:27) Hives Medications ?Medication ?Instructions ?Recorded ?Confirmed ?Type allopurinol 300 mg tablet 300 mg PO DAILY 02/15/2507/15 History doxycycline monohydrate 50 mg 50 mg PO DAILY 02/15/25 03/02/25 History capsule lisinopril 40 mg tablet 40 mg PO DAILY 02/15/2502/19 History metformin 500 mg tablet,extended 500 mg PO DAILY 02/1503/02/25 History release 24 hr mupirocin 2 % topical ointment topical BID 02/15/25 History semaglutide 1 mg/dose (4 mg/3 mL) mg subcut QWEEK 01/2003/02/25 History subcutaneous pen injector (Ozempic) Have you fallen in the past year?: No PFSH Medical History (Updated 03/02/25 @ 08:26 by Elidia Mesa) Sleep apnea Diabetes HTN (hypertension) Family History (Updated 03/02/25 @ 08:26 by Elidia Mesa) Sister Breast cancer HPI HPI HPI: Patient is a 65-year-old female here for an abnormality on her left breast by ultrasound. The patient had screening mammogram and then ultrasound which showed this mass. It is not palpable and she is not having any breast pain or nipple discharge. She does have a family history of breast cancer. ROS General General: Yes fatigue; No weight change, appetite, colon cancer, breast cancer or weakness HEENT HEENT: Yes eye injury; No difficulty swallowing, eye surgery, swollen glands or hoarseness Endo Endocrine: Yes diabetes mellitus; No thyroid disease, thyroid cancer, Hair loss, heat intolerance or cold intolerance Skin Skin: No rash or changing moles Breast Breast: Yes abnormal mammogram and abnormal US; No left breast lump, right breast lump, nipple discharge, breast pain or breast enlargement Musc Musculoskeletal: Yes arthritis; No back problems, rheumatoid arthritis, gout or joint pain Cardio Cardiovascular: Yes high blood pressure; No murmur, pacemaker, heart disease, atrial fibrillation, heart attack, heart stent, palpitations, shortness of breath with exertion or chest pain Psych Psychiatric: No depression, anxiety or hearing voices Resp Respiratory: No shortness of breath, Yes sleep apnea, No cough, No COPD, No asthma, No emphysema and No wheezing Gastro Gastrointestinal: No abdominal pain, No nausea or vomiting, No diarrhea, No constipation, No blood in stool, No acid reflux, No hemorrhoids, No ulcers, No gallbladder problem and No black,tarry stools Rashard Hematologic: No blood thinners, No blood disorders, No bleeding, No anemia and No blood clots Neuro Neurologic: No system reviewed and no additional complaints, except as documented, No as per HPI, No abnormal gait, No abnormal hearing, No abnormal movements, No abnormal speech, No behavioral changes, No burning sensations, No confusion, No convulsions, No disequilibrium, No dizziness, No localized weakness, No frequent falls, No headache(s), No lack of coordination, No loss ofvision, No memory loss, No numbness, No other visual disturbances, No radicular pain, No restless legs, No sensory deficit, No syncope, No tingling, No tremor(s), No weakness and No other Exam Const General: cooperative Orientation: alert and oriented x3 HENMT Head: normal to inspection Neck Neck: normal visual inspection and full ROM Chest Chest palpation & inspection: normal inspection of the chest Resp Effort & Inspection: normal respiratory effort Auscultation: clear to auscultation bilaterally Cardio Rate: regular rate Rhythm: regular rhythm GI Inspection: non-distended Palpation: soft and nontender Skin General: no rashes or lesions noted Neuro General: patient alert and patient oriented x3 Extrem General: full ROM Psych Appearance: grossly normal Mental Status: mental status grossly normal Office Procedures Biopsy Provider Documentation The left breast was prepped and draped in usual sterile fashion. Ultrasound wasused to localize the mass in the retroareolar space. An area superior to the nipple was injected with local anesthetic and a small becky was made with a scalpel. The mammotome was placed into the breast and under the lesion and fired several times. It did not collapse like a cyst. A clip was then placed into the mass. Steri-Strip and bandage were placed over the incision. Patient tolerated the procedure well. Alert Mercedes Yes Biopsy Breast Biopsy: 23952 US Guidance Procedure Time Out Time Out Informed consent given: Yes Consent signed: Yes Time out checklist: patient, procedure, site marked/identified, positioning of patient, supplies available, allergies confirmed and team agrees on procedure Time out staff in room: Yes Time out verified: Yes Time out date: 03/02/25 Time out time: 08:27 Assessment and Plan Assessment and Plan (1) Left breast mass: Status: Acute Plan: Patient had left breast mass on ultrasound. It was biopsied in the office today. I will follow-up with her with results. Dhaval Mccarthy MD Pager: [facility] [address] [place] [address], [address] [place] [address] Office: Orders: Orders Biopsy Today N63.20 - Unspecified lump in the left breast, unspecified quadrant Coding Level of Care Code Attention Mercedes Diagnoses Left breast mass N63.20 CPT Codes Biopsy - Breast Biopsy: 20610 US Guidance (33845) Clinical Quality Measures Falls Risk Screening/Assistive Devices Have you fallen in the past year?: No 03/02/25 0828 <Electronically signed by Dhaval zeng MD> Date _ Dhaval Mccarthy MD Cosign Signature: Date (if applicable) CC: Dr. Annalise Sampson MD ~ [facility] Work Phone: 1(925) 725-948208-05-2025 Radiology Diagnostic study note [facility] Imaging Services [address] [place] [id number] Breast Limited Unilateral MR#: [id number] Acct: [id number] Name: MARION DUNCAN Rep #: [id number] : 1960 F 65 From: Fidencio Tony MD PCP: Dr. Annalise Sampson MD Status: REG CLI Study:Breast Limited Unilateral Date of Exam: 02/23/25 Exam# [id number] Ordering Dr: Fortino Sampson MD PROCEDURE: BREAST LIMITED UNILATERAL 02/23/2025 REASON FOR EXAM: F, Age 65 y/o , ABNOMRAL MAMMOGRAM FROM [facility] ON 01/01/25 COMPARISON: Prior mammogram dated January 01, 2025.. TECHNIQUE: BREAST LIMITED UNILATERAL. The retroareolar region of the left breast was examined with ultrasound. FINDINGS: In the retroareolar region, there is a 6 mm x 10 mm x 5 mm cyst. Low-level echoes are seen within it. Percutaneous drainage recommended. US/Breast Limited Unilateral IMPRESSION: 6 mm x 10 mm x 5 mm cyst in the retroareolar region of the left breast with low- level echoes withinit. Tissue sampling recommended. BI-RADS 4: SUSPICIOUS RECOMMENDATION: Biopsy Recommended Reading Location: [id number] CC: Dr. Annalise Sampson MD ~ Closing Machine Operator: Signed [facility]07-28-2025 History and physical note Author [facility] Note Date/Time February 15, 2025 9:08 am [facility] [address] [place] [id number] H&P Exam - Wound Care 02/15/25 0902 MR#: [id number] Acct: [id number] Name: MARION DUNCAN Rep #:[id number] : 1960 64 From: Raul Poon MD PCP: Dr. Annalise Sampson MD Status :[facility] Location: History of Present Illness Date of Service: 02/15/25 History of Wound: The patient is a 64-year-old female presenting with hidradenitis suppurativa. The condition involves purulent drainage from lesions on the right upper back, persisting for about two months. She has been seeing Dr. Guerrero from [facility] dermatology for the condition, and 2 weeks ago he began her on a course of oral doxycycline and topical clindamycin gel. He referred her to us for definitive management of the sinus tracts. She has a history of diabetes mellitus, with an A1c of 6.7, managed with metformin and Ozempic. Her hypertension is controlled with lisinopril, though she missed her dose on the day of the visit, leading to elevated readings. ROS: - Dermatological: Reports purulent drainage from lesions on the right upper back. - Endocrine: Reports diabetes mellitus, denies recent hypoglycemic episodes. - Cardiovascular: Reports hypertension, denies chest pain or palpitations. Attestation: Documentation on this patient encounter was supported using ambient scribe technology/ voice AI technology. The patient consented to recording for the purpose of documenting the encounter. Provider reviewed content of the generatednote prior to signature. PFSH Allergy/AdvReac Type Severity Reaction Status Date / Time acetaminophen (From Percocet) Allergy Intermediate Hives Verified 02/15/25 08:35 oxycodone (From Percocet) Allergy Intermediate Hives Verified 02/15/25 08:35 Vital Signs Vital Signs Vital Signs: 02/15/25 08:23 Temperature 97.6 F L Temperature Source Temporal Pulse Rate 83 Respiratory Rate 14 Blood Pressure 189/94 H Blood Pressure Mean 125 Blood Pressure Source Monitor Blood Pressure Position Semi-Fowlers Blood Pressure Location Right Arm Physical Exam Narrative - Skin: 4 x 3 cm area of induration and fluctuance with purulent drainage on theright upper back, consistent with hidradenitis suppurativa. Debridement Note Debridement Note Post-Debridement Measurements and Additional Note: Post-Debridement Measurements/Treatment WC - Nurse 1 - General Ulcer Assessment Start: 02/15/25 08:23 Freq: Status: Active Protocol: JOHNNIE Activity Type Activity Date Activity User E-sign Co-sign Detail Recorded Client Recorded Date Recorded By Document 02/15/25 08:23 ML [id number] 02/15/25 08:30 ML 02/15/25 08:23 - Today's Visit Information Type of service Initial Visit Arrival Mode Ambulatory Patient Identification Verified (Name & Yes ) Patient Requires Transmission-Based No Precautions Vital Signs Temperature (97.8 F-99.1 F) 97.6 F L Temperature Source Temporal Pulse Rate (60-100) 83 Pulse Location Monitor Respiratory Rate (12-18) 14 Respiratory rate source Monitor Blood Pressure (90/60-120/80) 189/94 H Blood Pressure Mean 125 Source Monitor Position Semi-Fowlers Blood Pressure Location Right Arm Pain Scale: 0-10 Numeric Is Patient Pain Free? Yes - Nurse 1 - General Ulcer Measurement Start: 02/15/25 08:23 Freq: Status: Active Protocol: Activity Type Activity Date Activity User E-sign Co-sign Detail Recorded Client Recorded Date Recorded By Document 02/15/25 08:23 ML [id number] 02/15/25 08:30 ML 02/15/25 08:23 Wound Center Nurse 1 Right upper back -Current Size (cm) - Length 0.1 -Current Size (cm) - Width 0.1 -Current Size (cm) - Depth 0.2 -Total Square Cm 0.01 -Exudate Type Yellow/Green -Granulation Amt Medium (34-66%) -Necrotic Tissue Type Adherent Slough -Texture (Lorena-wound Skin Appearance) Assessed -Moisture (Lorena-wound Skin Appearance) Assessed -Color (Lorena-wound Skin Appearance) Assessed -Temperature (Lorena-wound Skin No Abnormality Appearance) (Pt Warm) -Tenderness on Palpation (Lorena-wound Yes Skin Appearance) -Ulcer Cleansing Rinsed/ Irrigated with Saline -Foul Odor after Cleansing No -Anesthetic Used 5% Lidocaine Gel WC - Nurse 2 - General Ulcer CM Notes Start: 02/15/25 08:23 Freq: Status: Active Protocol: Activity Type Activity Date Activity User E-sign Co-sign Detail Recorded Client Recorded Date Recorded By Document 02/15/25 08:38 DS [id number] 02/15/25 08:47 DS 02/15/25 08:38 Wound Center Nurse 2 -Time 08:38 -Correct Patient Yes -Correct Side, Site, Position Yes -Procedure Performed No -Post Debridement (cm) - Length 4.0 -Post Debridement (cm) - Width 3.0 -Total Square (Post) (cm) 12.00 -Area of Debridement (cm) - Length 4.0 -Area of Debridement (cm) - Width 3.0 -Total Square (Area) (cm) 12.00 -Tunneling No -Undermining/Tunneling No -Circular Undermining No -Wound/Ulcer Outcome Not Healed -Foul Odor after Cleansing No -Bioengineered Tissue No Pain Scale: 0-10 Numeric Is Patient Pain Free? Yes - Nurse 3 - General Ulcer D/C NN Start: 02/15/25 08:23 Freq: Status: Active Protocol: Activity Type Activity Date Activity User E-sign Co-sign Detail Recorded Client Recorded Date Recorded By Document 02/15/25 08:48 DS [id number] 02/15/25 08:48 DS 02/15/25 08:48 Wound Care Center Nurse 3 Right upper back -Primary Dressing Covered/Secured with Dry Gauze, Secured with Tape Pain Scale: 0-10 Numeric Is Patient Pain Free? Yes WC - Visit Discharge Discharge Condition Stable Ambulatory Status Ambulatory Transportation Private Auto Charges/Coding Visit Charges Office Visits / Consults: 12226 OV L3 New 30min Assessment/Plan Assessment/Plan (1) Hidradenitis suppurativa: CODE(S): L73.2 - Hidradenitis suppurativa PLAN: Plan Assessment and Plan The patient is a 64-year-old female with a history of hidradenitis suppurativa presenting with persistent lesions on the right upper back. The lesions are characterized by purulent drainage and have been present for approximately two months, despite antibiotic therapy with doxycycline. The patient also has diabetes mellitus, with a recent A1c of 6.7, managed with metformin and Ozempic,and hypertension managed with lisinopril, though she missed her dose on the day of the visit. 1. Hidradenitis Suppurativa The plan involves continuing doxycycline and maintaining dressing for drainage. A debridement procedure is considered to address the sinus tract and promote healing from the inside out. Follow-up is scheduled in two weeks to reassess thecondition and potentially demonstrate wound care techniques to the patient's who could help with dressing changes after the opening of the wound bed. Patient is in agreement with this plan to defer debridement from today to the appointment in 2 weeks when her spouse could be taught wound care. She was given strict return precautions and told to go to the emergency department if she develops fevers chills or systemic signs of infection. At this point the area is a chronic scarred sinus tract from hidradenitis and not an acute abscess. 2. Diabetes Mellitus The patient's diabetes is managed with metformin and Ozempic, with a recent A1c of 6.7. No changes to the current management plan were discussed during the visit. 3. Hypertension I advised her to go to the emergency department today as her blood pressure was too elevated, however she elected to go home instead and take her medicine. 02/15/25 0908 <Electronically signed by Raul Poon MD> Cosigner Signature (if applicable): CC: ~ Signed [facility] Work Phone: 1(719) 919-607307-28-2025 Evaluation note* Diagnosis Onset Date Resolution Status Admit Date Hidradenitis suppurativa acute February 15, 2025 8:00am [facility] Work Phone: 1(992) 839-671507-28-2025 Evaluation note* Diagnosis Onset Date Resolution Status Admit Date Hidradenitis suppurativa acute February 15, 2025 8:00am Left breast mass acute February 192024 7:57am [facility] Work Phone: 1(990) 144-500907-28-2025 History and physical note [facility] [address] [place] [address] H&P Exam - Wound Care 02/15/25 0902 MR#: [id number] Acct: [id number] Name: MARION DUNCAN Rep #:[id number] : 1960 64 From: Raul Poon MD PCP: Dr. Annalise Sampson MD Status :REG RCR Location: History of Present Illness Date of Service: 02/15/25 History of Wound: The patient is a 64-year-old female presenting with hidradenitis suppurativa. Thecondition involves purulent drainage from lesions on the right upper back, persisting for about twomonths. She has been seeing Dr. Guerrero from [facility] dermatology for the condition, and 2 weeks ago he began her on a course of oral doxycycline and topical clindamycin gel. He referred her to us for definitive management of the sinus tracts. She has a history of diabetes mellitus, with an A1c of 6.7, managed with metformin and Ozempic. Herhypertension is controlled with lisinopril, though she missed her dose on the day of the visit, leading to elevated readings. ROS: - Dermatological: Reports purulent drainage from lesions on the right upper back. - Endocrine: Reports diabetes mellitus, denies recent hypoglycemic episodes. - Cardiovascular: Reports hypertension, denies chest pain or palpitations. Attestation: Documentation on this patient encounter was supported using ambient scribe technology/ voice AI technology. The patient consented to recording for the purpose of documenting the encounter. Provider reviewed content of the generatednote prior to signature. PFSH Allergy/AdvReac Type Severity Reaction Status Date / Time acetaminophen (From Percocet) Allergy Intermediate Hives Verified 02/15/25 08:35 oxycodone (From Percocet) Allergy Intermediate Hives Verified 02/15/25 08:35 Vital Signs Vital Signs Vital Signs: 02/15/25 08:23 Temperature 97.6 F L Temperature Source Temporal Pulse Rate 83 Respiratory Rate 14 Blood Pressure 189/94 H Blood Pressure Mean 125 Blood Pressure Source Monitor Blood Pressure Position Semi-Fowlers Blood Pressure Location Right Arm Physical Exam Narrative - Skin: 4 x 3 cm area of induration and fluctuance with purulent drainage on theright upper back, consistent with hidradenitis suppurativa. Debridement Note Debridement Note Post-Debridement Measurements and Additional Note: Post-Debridement Measurements/Treatment WC - Nurse 1 - General Ulcer Assessment Start: 02/15/25 08:23 Freq: Status: Active Protocol: JOHNNIE Activity Type Activity Date Activity User E-sign Co-sign Detail Recorded Client Recorded Date Recorded By Document 02/15/25 08:23 ML [id number] 02/15/25 08:30 ML 02/15/25 08:23 WC - Today's Visit Information Type of service Initial Visit Arrival Mode Ambulatory Patient Identification Verified (Name & Yes ) Patient Requires Transmission-Based No Precautions Vital Signs Temperature (97.8 F-99.1 F) 97.6 F L Temperature Source Temporal Pulse Rate (60-100) 83 Pulse Location Monitor Respiratory Rate (12-18) 14 Respiratory rate source Monitor Blood Pressure (90/60-120/80) 189/94 H Blood Pressure Mean 125 Source Monitor Position Semi-Fowlers Blood Pressure Location Right Arm Pain Scale: 0-10 Numeric Is Patient Pain Free? Yes EDA - Nurse 1 - General Ulcer Measurement Start: 02/15/25 08:23 Freq: Status: Active Protocol: Activity Type Activity Date Activity User E-sign Co-sign Detail Recorded Client Recorded Date Recorded By Document 02/15/25 08:23 ML [id number] 02/15/25 08:30 ML 02/15/25 08:23 Wound Center Nurse 1 Right upper back -Current Size (cm) - Length 0.1 -Current Size (cm) - Width 0.1 -Current Size (cm) - Depth 0.2 -Total Square Cm 0.01 -Exudate Type Yellow/Green -Granulation Amt Medium (34-66%) -Necrotic Tissue Type Adherent Slough -Texture (Lorena-wound Skin Appearance) Assessed -Moisture (Lorena-wound Skin Appearance) Assessed -Color (Lorena-wound Skin Appearance) Assessed -Temperature (Lorena-wound Skin No Abnormality Appearance) (Pt Warm) -Tenderness on Palpation (Lorena-wound Yes Skin Appearance) -Ulcer Cleansing Rinsed/ Irrigated with Saline -Foul Odor after Cleansing No -Anesthetic Used 5% Lidocaine Gel - Nurse 2 - General Ulcer CM Notes Start: 02/15/25 08:23 Freq: Status: Active Protocol: Activity Type Activity Date Activity User E-sign Co-sign Detail Recorded Client Recorded Date Recorded By Document 02/15/25 08:38 [id number] 02/15/25 08:47 DS 02/15/25 08:38 Wound Center Nurse 2 -Time 08:38 -Correct Patient Yes -Correct Side, Site, Position Yes -Procedure Performed No -Post Debridement (cm) - Length 4.0 -Post Debridement (cm) - Width 3.0 -Total Square (Post) (cm) 12.00 -Area of Debridement (cm) - Length 4.0 -Area of Debridement (cm) - Width 3.0 -Total Square (Area) (cm) 12.00 -Tunneling No -Undermining/Tunneling No -Circular Undermining No -Wound/Ulcer Outcome Not Healed -Foul Odor after Cleansing No -Bioengineered Tissue No Pain Scale: 0-10 Numeric Is Patient Pain Free? Yes - Nurse 3 - General Ulcer D/C NN Start: 02/15/25 08:23 Freq: Status: Active Protocol: Activity Type Activity Date Activity User E-sign Co-sign Detail Recorded Client Recorded Date Recorded By Document 02/15/25 08:48 DS [id number] 02/15/25 08:48 DS 02/15/25 08:48 Wound Care Center Nurse 3 Right upper back -Primary Dressing Covered/Secured with Dry Gauze, Secured with Tape Pain Scale: 0-10 Numeric Is Patient Pain Free? Yes - Visit Discharge Discharge Condition Stable Ambulatory Status Ambulatory Transportation Private Auto Charges/Coding Visit Charges Office Visits / Consults: 14322 OV L3 New 30min Assessment/Plan Assessment/Plan (1) Hidradenitis suppurativa: CODE(S): L73.2 - Hidradenitis suppurativa PLAN: Plan Assessment and Plan The patient is a 64-year-old female with a history of hidradenitis suppurativa presenting with persistent lesions on the right upper back. The lesions are characterized by purulent drainage and have been present for approximately two months, despite antibiotic therapy with doxycycline. The patient also has diabetes mellitus, with a recent A1c of 6.7, managed with metformin and Ozempic,and hypertension managed with lisinopril, though she missed her dose on the day of the visit. 1. Hidradenitis Suppurativa The plan involves continuing doxycycline and maintaining dressing for drainage. A debridement procedure is considered to address the sinus tract and promote healing from the inside out. Follow-up is scheduled in two weeks to reassess thecondition and potentially demonstrate wound care techniques tothe patient's who could help with dressing changes after the opening of the wound bed. Patient is in agreement with this plan to defer debridement from today to the appointment in 2 weeks when her spouse could be taught wound care. She was given strict return precautions and told to go to the emergency department if she develops fevers chills or systemic signs of infection. At this point the area is a chronic scarred sinus tract from hidradenitis and not an acute abscess. 2. Diabetes Mellitus The patient's diabetes is managed with metformin and Ozempic, with a recent A1c of 6.7. No changes to the current management plan were discussed during the visit. 3. Hypertension I advised her to go to the emergency department today as her blood pressure was too elevated, however she elected to go home instead and take her medicine. 02/15/25 0908 Cosigner Signature (if applicable): CC: ~ Signed [facility]07-06-2025 NoteHNO ID: [id number] Author: INNA HOSKINS PA-C Service: ? Author Type: Physician Director Safety Council Type: Progress Notes Filed: 01/24/2025 13:31 Note Text: This note was created using Vision Sciencester. Subjective Marion Duncan is a 64 year old female. Patient is a 64-year-old female complains of an enlarging area of redness, swelling and pain that she has been experiencing to her right thoracic back for the past approximately 2 weeks. Patient states she has noted drainage to the site over the past several days. Patient is not certain if she experienced an insect bite/sting or other wound to the skin of her thoracic back. Patient does have hidradenitis and typically takes doxycycline 50 mg once daily for prophylaxis. Review of Systems Skin: Redness, Swelling and Pain to Thoracic Back All other systems reviewed and are negative. Objective BP 188/109 Pulse 74 Temp 36.9 ?C (98.5 ?F) Resp 20 Wt 110 kg (242 lb 8.1 oz) SpO2 99% Physical Exam Vitals and nursing note reviewed. Constitutional: Appearance: Normal appearance. She is normal weight. HENT: Head: Normocephalic and atraumatic. Nose: Nose normal. Mouth/Throat: Mouth: Mucous membranes are moist. Pharynx: Oropharynx is clear. Eyes: Extraocular Movements: Extraocular movements intact. Conjunctiva/sclera: Conjunctivae normal. Pupils: Pupils are equal, round, and reactive to light. Cardiovascular: Rate and Rhythm: Normal rate. Pulses: Normal pulses. Pulmonary: Effort: Pulmonary effort is normal. Breath sounds: Normal breath sounds. Musculoskeletal: General: Normal range of motion. Cervical back: Normal range of motion and neck supple. Skin: General: Skin is warm and dry. Capillary Refill: Capillary refill takes less than 2 seconds. Findings: Erythema present. Comments: Approximate 4 cm annular region of intense erythema and induration is noted to the medial aspect of the superior right paravertebral thoracic back. There is a central open area which is draining a slight amount of purulent fluid. Patient demonstrates tenderness with palpation. Remainder of exam to the skin of the thoracic and lumbar back is unremarkable. Neurological: General: No focal deficit present. Mental Status: She is alert and oriented to person, place, and time. Psychiatric: Mood and Affect: Mood normal. Behavior: Behavior normal. Thought Content: Thought content normal. Judgment: Judgment normal. Assessment and Plan Physical exam findings as noted above. Patient cannot be provided with a prescription for Bactrim due to interaction with a current GIOVANNY inhibitor. Patient was provided with prescriptions for Augmentin 875-125 mg and Bactroban 2% ointment. Patient was advised to continue the doxycycline as currently prescribed. Patient was very clearly instructed to report to an emergency department if she notes any acute worsening of her symptoms and to otherwise follow-up with her primary care physician for further management as needed. Patient verbalizes clear understanding of all instructions. CLINICAL IMPRESSION: Cellulitis/Abscess Medial Right Thoracic Back ASSESSMENT/PLAN: 1. Cutaneous abscess of back excluding buttocks - ICD9: 682.2, ICD10: L02.212 - MUPIROCIN 2 % TOPICAL OINTMENT - AMOXICILLIN 875 MG-POTASSIUM CLAVULANATE 125 MG TABLET MDM Risk of Complications, Morbidity, and/or Mortality Presenting problems: low Diagnostic procedures: low Management options: [facility] [place]07-06-2025 History of Present illness Narrative* Nina Hoskins PA-C - 01/24/2025 1:23 PM EDT This note was created using Fluidriter. Subjective Marion Duncan is a 64 year old female. Patient is a 64-year-old female complains of an enlarging area of redness, swelling and pain that she has been experiencing to her right thoracic back for the past approximately 2 weeks. Patient states she has noted drainage to the site over the past several days. Patient is not certain if she experienced an insect bite/sting or other wound to the skin of her thoracic back. Patient does have hidradenitis and typically takes doxycycline 50 mg once daily for prophylaxis. Review of Systems Skin: Redness, Swelling and Pain to Thoracic Back All other systems reviewed and are negative. Objective BP 188/109 Pulse 74 Temp 36.9 C (98.5 F) Resp 20 Wt 110 kg (242 lb 8.1 oz) SpO2 99% Physical Exam Vitals and nursing note reviewed. Constitutional: Appearance: Normal appearance. She is normal weight. HENT: Head: Normocephalic and atraumatic. Nose: Nose normal. Mouth/Throat: Mouth: Mucous membranes are moist. Pharynx: Oropharynx is clear. Eyes: Extraocular Movements: Extraocular movements intact. Conjunctiva/sclera: Conjunctivae normal. Pupils: Pupils are equal, round, and reactive to light. Cardiovascular: Rate and Rhythm: Normal rate. Pulses: Normal pulses. Pulmonary: Effort: Pulmonary effort is normal. Breath sounds: Normal breath sounds. Musculoskeletal: General: Normal range of motion. Cervical back: Normal range of motion and neck supple. Skin: General: Skin is warm and dry. Capillary Refill: Capillary refill takes less than 2 seconds. Findings: Erythema present. Comments: Approximate 4 cm annular region of intense erythema and induration is noted to the medialaspect of the superior right paravertebral thoracic back. There is a central open area which is draining a slight amount of purulent fluid. Patient demonstrates tenderness with palpation. Remainder of exam to the skin of the thoracic and lumbar back is unremarkable. Neurological: General: No focal deficit present. Mental Status: She is alert and oriented to person, place, and time. Psychiatric: Mood and Affect: Mood normal. Behavior: Behavior normal. Thought Content: Thought content normal. Judgment: Judgment normal. Assessment and Plan Physical exam findings as noted above. Patient cannot be provided with a prescription for Bactrim due to interaction with a current GIOVANNY inhibitor. Patient was provided with prescriptions for Augmentin 875-125 mg and Bactroban 2% ointment. Patient was advised to continue the doxycycline as currently prescribed. Patient was very clearly instructed to report to an emergency department if she notes any acute worsening of her symptoms and to otherwise follow-up with her primary care physician for further management as needed. Patient verbalizes clear understanding of all instructions. CLINICAL IMPRESSION: Cellulitis/Abscess Medial Right Thoracic Back ASSESSMENT/PLAN: 1. Cutaneous abscess of back excluding buttocks - ICD9: 682.2, ICD10: L02.212 - MUPIROCIN 2 % TOPICAL OINTMENT - AMOXICILLIN 875 MG-POTASSIUM CLAVULANATE 125 MG TABLET MDM Risk of Complications, Morbidity, and/or Mortality Presenting problems: low Diagnostic procedures: low Management options: low Nina Hoskins PA-C [facility] Miscellaneous Notes* Addendum Note - Tracey Stallworth RT(Henry) - 01/01/2025 7:10 AM EDTEncounter addended by: Tracey Stallworth RT(Henry) on: 01/01/2025 7:44 AM Actions taken: Delete clinical note documented in this encounterDoctors Hospital06-13-2025 Note* Addendum Note - Tracey Stallworth RT(Henry) - 01/01/2025 7:10 AM EDTEncounter addended by: Tracey Stallworth RT(R) on: 01/01/2025 7:44 AM Actions taken: Delete clinical note [facility]06-[facility]25 NoteHNO ID: [id number] Author: TRACEY STALLWORTH RT(R) Service: ? Author Type: Technologist Type: Progress Notes Filed: 01/01/2025 07:41 Note Text: Radiology Service Progress Note PATIENT NAME: Marion Duncan DATE OF SERVICE: January 01, 2025 TIME: 7:41 AM PATIENT IDENTITY VERIFICATION COMPLETED USING TWO (2) IDENTIFIERS: Name and Date of confirmed by patient verbally. FALL SCREENING: Has the patient had 2 falls in the last year or 1 fall with injury or currently using an Ambulatory Assistive Device (Walker, Cane, Wheelchair, Crutches, etc.)? No PATIENT GENDER DATA: Assigned female at . status: : No status: NO. PATIENT RELEVANT IMPLANT DATA REVIEWED: Not Applicable PATIENT PRESENTS WITH AN IMPLANTABLE OR ATTACHED CRANE OILER: No RADIOLOGY DEPARTMENT: Mammography PERIPHERAL IV DATA: Not applicable SIGNED BY: RT Carmen(R) January 01, 2025 7:41 [facility]07-03-2024 NoteIMPRESSION: INCOMPLETE: NEEDS ADDITIONAL IMAGING EVALUATION The oval central lucent asymmetry in the left breast is indeterminate. An ultrasound is recommended. Rio oliva/jocelyn:01/22/2024 16:34:12 Tile Mechanic Helper(s): Aaron Morales [facility] Mammogram BI-RADS: 0 Incomplete: needs additional imaging evaluation Multiple national specialty organizations have released breast cancer screening guidelines for women at average risk for developing breast cancer - guidelines that are based on both evidence and opinion, yet differ on when to start and how often to screen for breast cancer. With representation from Breast Imaging, Internal Medicine, Women's Health, Family Medicine, and Medical/Surgical Oncology, the [facility] has carefully reviewed the data and reached the following consensus: 1) All women should engage in shared decision-making with their providers to decide when to start and how often to screen; 2) All women should have the opportunity to start screening mammography at age 40; 3) For women ages 45-55, we recommend annual screening mammograms; 4) For women ages 55 and over, we support both the transition from an annual to a biennial interval if this aligns more with patient's values and preferences, or continuation with annual screening; 5) All women should discuss with their providers when to stop screening mammograms. Closing Machine Operator: Jocelyn Transcrielias Date/Time: Jan 22 2024 4:02P Dictated by: RIO PINEDA MD This examination was interpreted and the report reviewed and electronically signed by: RIO PINEDA MD on Jan 22 2024 4:34PM [facility] DIV[facility] OF [id number] NoteIMPRESSION: INCOMPLETE: NEEDS ADDITIONAL IMAGING EVALUATION The asymmetry in the left breast is indeterminate. Additional views with possible ultrasound are recommended. The exam was reviewed by a staff physician. ryann Nascimento M.D., D.O./jocelyn:12/26/2023 09:52:41 Tile Mechanic Helper(s): RT Radha(R)(M), [facility] letter sent: Additional Imaging Needed Mammogram BI-RADS: 0 Incomplete: needs additional imaging evaluation If this report indicates you need additional imaging, and it has NOT yet been performed, please call , to schedule. We sincerely thank you for choosing [facility] for your [facility] imaging needs. Multiple national specialty organizations have released breast cancer screening guidelines for women at average risk for developing breast cancer - guidelines that are based on both evidence and opinion, yet differ on when to start and how often to screen for breast cancer. With representation from Breast Imaging, Internal Medicine, Women's Health, Family Medicine, and Medical/Surgical Oncology, the [facility] has carefully reviewed the data and reached the following consensus: 1) All women should engage in shared decision-making with their providers to decide when to start and how often to screen; 2) All women should have the opportunity to start screening mammography at age 40; 3) For women ages 45-55, we recommend annual screening mammograms; 4) For women ages 55 and over, we support both the transition from an annual to a biennial interval if this aligns more with patient's values and preferences, or continuation with annual screening; 5) All women should discuss with their providers when to stop screening mammograms. Closing Machine Operator: Jocelyn Transcribe Date/Time: Dec 26 2023 8:06A Dictated by: MARY RICHTER DO This examination was interpreted and the report reviewed and electronically signed by: JAMES KHALIL MD on Dec 26 2023 9:52AM [facility] DIV[facility] OF [id number] History of Present illness Narrative* Elana Miranda Mammo Tech - 12/26/2023 7:50 AM EDT Radiology Service Progress Note PATIENT NAME: Marion Duncan DATE OF SERVICE: December 26, 2023 TIME: 8:03 AM PATIENT IDENTITY VERIFICATION COMPLETED USING TWO (2) IDENTIFIERS: Name and Date of confirmedby patient verbally. FALL SCREENING: Has the patient had 2 falls in the last year or 1 fall with injury or currently using an Ambulatory Assistive Device (Walker, Cane, Wheelchair, Crutches, etc.)? No PATIENT GENDER DATA: Female. status: : No status: NO. PATIENT RELEVANT IMPLANT DATA REVIEWED: Not Applicable PATIENT PRESENTS WITH AN IMPLANTABLE OR ATTACHED CRANE OILER: No RADIOLOGY DEPARTMENT: Mammography PERIPHERAL IV DATA: Not applicable SIGNED BY: Sharmila Antunez December 26, 2023 8:03 AM documented in this encounterDoctors HospitalEvaluation noteNo assessment information availableWTriHealth McC[facility] Work Phone: Evaluation note* Diagnosis Cutaneous abscess of back excluding buttocks- Primary Cellulitis and abscess of trunk documented in this encounter [facility] (narrative)No reason for referral information availableWTriHealth [facility] Work Phone: Summary Purpose Family History Relationship Condition Age at Onset Recorded Date/T jb sister Malignant neoplasm of breast Unknown Advance Directives No Advanced Directives Records FoundNo Advanced Directives Records FoundNo Advanced Directives Records FoundNo Advanced Directives Records Found Chief Complaint and Reason for Visit Chief Complaint SCREENING Chief Complaint EORDER Chief Complaint Admit Date wound February 15, 2025 8:00 am wound February 15, 2025 9:02 am Reason for Visit Admit Date Hidradenitis suppurativa February 15, 2025 8:00am Chief Complaint Admit Date wound February 15, 2025 8:00 am wound February 15, 2025 9:02 am other abnormal and inconclusive findings on dx telma February 23, 2025 12:23pm Chief Complaint Admit Date wound February 15, 2025 8:00 am wound February 15, 2025 9:02 am other abnormal and inconclusive findings on dx telma February 23, 2025 12:23pm BIRADS 4 March 02, 2025 7: 57am Reason for Visit Admit Date Hidradenitis suppurativa February 15, 2025 8:00am Left breast mass March 02, 2025 7: 57am Additional Source Comments INFORMATION SOURCE (unrecogn ized section and content) DATE CREATED AUTHOR 07/25/2018 [facility] DATE CREATED AUTHOR AUTHOR'S ORGANIZ ATION 08/01/2019 [facility] [facility] ([place]) DATE CREATED AUTHOR AUTHOR'S ORGANIZ ATION 01/27/2025 [facility] DATE CREATED AUTHOR AUTHOR'S ORGANIZ ATION 03/01/2025 [facility] Goals (unrecognized section and content) Goals may be documented in a n alternate sectionGoals may be documented in an alternate sectionGoals may be documented in an alternate sectionGoals may be documented in an alternate sectionGoals may be documented in an alternate sectionGoals may be documented in an alternate sectionGoals may be documented in an alternate sectionGoals may be documented in an alternate sectionGoals may be documented in an alternate section Care Teams (unrecognized sec tion and content) Team Status: Active Member Role Status Dates Dr. Dwight Sampson MD Family Provider Active Dr. Dwight Sampson MD Primary Care Provider Activ e Team Status: Inactive Member Role Status Dates Dr. Dwight Sampson MD Primary Care Provider, Atte nding Provider Active Team Status: Inactive Member Role Status Dates Dr. Dwight Sampson MD Primary Care Provider, Attending Provider, Referring Provider Active Painting Worker Relationship Specialty Start Date End Date Annalise Sampson MD [address] [place] [id number] PCP - General Family Medicine 03/11/15 Painting Worker Relationship Specialty Start Date End Date Annalise Sampson MD [address] [place], [place] [id number] PCP - General Family Medicine 03/11/15 Painting Worker Relationship Specialty Start Date End Date Annalise Sampson MD [address] [place], [place] [id number] PCP - General Family Medicine 03/11/15 Painting Worker Relationship Specialty Start Date End Date Annalise Sampson MD [address] [place], [place] [id number] PCP - General Family Medicine 03/11/15 Painting Worker Relationship Specialty Start Date End Date Annalise Sampson MD [address] [place], [place] [id number] PCP - General Family Medicine 03/11/15 Team Status: Active Member Role/Relationship Status Dates Dr. Annalise Sampson MD Primary Care Provider Acti ve Team Status: Inactive Member Role/Relationship Status Dates Dr. Annalise Sampson MD Primary Care Provider Acti ve Start: February 15, 2025 End: February 18, 2025 Dr. Raul Poon MD Attending Provider Active Start: February 15, 2025 End: February 18, 2025 Dr. Chava Guerrero MD Referring Provider Active Start: February 15, 2025 End: February 18, 2025 Team Status: Active Member Role/Relationship Status Dates Dr. Annalise Sampson MD Primary Care Provider Acti ve Start: February 15, 2025 Dr. Raul Poon MD Attending Provider Active Start: February 15, 2025 Dr. Raul Poon MD Other Provider Active Star t: February 15, 2025 Dr. Chava Guerrero MD Referring Provider Active Start: February 15, 2025 Team Status: Inactive Member Role/Relationship Status Dates Dr. Annalise Sampson MD Primary Care Provider Acti ve Start: February 23, 2025 End: February 23, 2025 Dr. Annalise Sampson MD Attending Provider Active Start: February 23, 2025 End: February 23, 2025 Dr. Annalise Sampson MD Referring Provider Active Start: February 23, 2025 End: February 23, 2025 Team Status: Inactive Member Role/Relationship Status Dates Dr. Annalise Sampson MD Primary Care Provider Acti ve Start: March 02, 2025 End: March 02, 2025 Dr. Annalise Sampson MD Referring Provider Active Start: March 02, 2025 End: March 02, 2025 Dr. Dhaval Mccarthy MD Attending Provider Active Start: March 02, 2025 End: March 02, 2025 Source Comments (unrecognize d section and content) In the event this informatio n is protected by the Federal Confidentiality of Alcohol and Drug Abuse Patient Records regulations: The Federal rules restrict any use of the information to criminally investigate or prosecute any alcohol or drug abuse patient.Do[facility] HospitalIn the event this information is protected by the Federal Confidentiality of Alcohol and Drug Abuse Patient Records regulations: The Federal rules restrict any use of the information to criminally investigate or prosecute any alcohol or drug abuse patient.Doctors HospitalIn the event this information is protected by the Federal Confidentiality of Alcohol and Drug Abuse Patient Records regulations: The Federal rules restrict any use of the information to criminally investigate or prosecute any alcohol or drug abuse patient.Doctors HospitalIn the event this information is protected by the Federal Confidentiality of Alcohol and Drug Abuse Patient Records regulations: The Federal rules restrict any use of the information to criminally investigate or prosecute any alcohol or drug abuse patient.Doctors HospitalIn the event this information is protected by the Federal Confidentiality of Alcohol and Drug Abuse Patient Records regulations: The Federal rules restrict any use of the information to criminally investigate or prosecute any alcohol or drug abuse patient.[facility] Reason for Visit (unrecogniz ed section and content) Reason Comments Derm Problem Boil on R shoulder, red raised painful, hard 3x3 area, causing pain in shoulder x 2 weeks Some drainage FOR RECORDS PERTAINING TO PATIENTS WHO ARE OR HAVE BEEN ENROLLED IN A CHEMICAL DEPENDENCY/SUBSTANCEABUSE PROGRAM, SOME INFORMATION MAY BE OMITTED. This clinical summary was aggregated from multiple sources. Caution should be exercised in using it in the provision of clinical care. This summary normalizes information from multiple sources, and as a consequence, information in this document may materially change the coding, format and clinical context of patient data. In addition, data may be omitted in some cases. CLINICAL DECISIONS SHOULD BE BASED ON THE PRIMARY CLINICAL RECORDS. [facility] [employer] [facility]. provides no warranty or guarantee of the accuracy or completeness of information in this document.
== END | disposition home or self-care (01) ==
LOC: LABSPEC 09:58
PROVIDERS: PCP Family Medicine; Referring Provider Surgery; Visit Provider Surgery
DX: N60.22 Fibroadenosis of left breast (principal)
CPT/HCPCS: 88305

== ENCOUNTER 2025-03-15 08:00 | Outpatient (RCR) | payer BC, SELFPAY ==
--- NOTE | 2025-03-08 | LES_PTH ---
PATIENT: DEE HEALY LOC: U#:[id number] AGE/SX: 65/F ROOM: RE03/15/[address]: Dr. Raul Poon MD : 1960 BED: DIS: 03/21/2025 SPEC #: [id number] RECD: 03/08/25 11:58 STATUS: MUNA REMiley #: [id number] HEBER: 03/08/25 00:[address]: Raul Poon DEPT: SURGICAL PATHOLOGY RECD BY: Daniel Rehman ENTERED: 03/08/25 13:59 SP TYPE: Lesion OTHR DR: MD Dr. Chava Champion MD Tissues: A - Skin of back, NOS Procedures: Surgery Specimen Level IV HEADER OPERATION: Right upper back PRE-OP DIAGNOSIS: Rule out malignancy TISSUE SUBMITTED: A- Right upper back lesion MICROSCOPIC DIAGNOSIS A. Skin, right upper back, excision: - Superficial epidermal invagination with hyperkeratosis and proliferative features suggestive of dilated pore of Hunter. - No significant inflammation of evidence of malignancy observed. MICROSCOPIC DESCRIPTION Slides are reviewed. GROSS DESCRIPTION A. Received in formalin labeled with the patient's name and date of . Designated as R upper back is a 1.2 x 0.4 cm light brown, wrinkled and irregular skin ellipse devoid of orientation, excised to a depth of 0.4 cm. No definitive lesions are grossly identified on the epidermal surface. The resection margin is inked green. The specimen is serially sectioned and entirely submitted in 1 cassette. [place] 03/08/2025 CPT:68167
--- NOTE | 2025-03-08 | LES_PTH ---
PATIENT: DEE HEALY LOC: U#:[id number] AGE/SX: 65/F ROOM: RE03/15/[address]: Dr. Raul Poon MD : 1960 BED: DIS: 03/21/2025 SPEC #: [id number] RECD: 03/08/25 11:58 STATUS: MUNA REMiley #: [id number] HEBER: 03/08/25 00:[address]: Raul Poon DEPT: SURGICAL PATHOLOGY RECD BY: Daniel Rehman ENTERED: 03/08/25 13:59 SP TYPE: Lesion OTHR DR: MD Dr. Chava Champion MD Tissues: A - Skin of back, NOS Procedures: Surgery Specimen Level IV HEADER OPERATION: Right upper back PRE-OP DIAGNOSIS: Rule out malignancy TISSUE SUBMITTED: A- Right upper back lesion MICROSCOPIC DIAGNOSIS A. Skin, right upper back, excision: - Superficial epidermal invagination with hyperkeratosis and proliferative features suggestive of dilated pore of Hunter. - No significant inflammation of evidence of malignancy observed. MICROSCOPIC DESCRIPTION Slides are reviewed. GROSS DESCRIPTION A. Received in formalin labeled with the patient's name and date of . Designated as R upper back is a 1.2 x 0.4 cm light brown, wrinkled and irregular skin ellipse devoid of orientation, excised to a depth of 0.4 cm. No definitive lesions are grossly identified on the epidermal surface. The resection margin is inked green. The specimen is serially sectioned and entirely submitted in 1 cassette. [place] 03/08/2025 CPT:50864
[2025-03-08 08:17] VITALS: BP 157/89; PULSE 80; RESP 16; TEMP 36.6
--- NOTE | 2025-03-08 11:36 | PCM.WC.PN ---
History of Present Illness Date of Service: 02/15/25 History of Wound: The patient is a 64-year-old female presenting with hidradenitis suppurativa. The condition involves purulent drainage from lesions on the right upper back, persisting for about two months. She has been seeing Dr. Guerrero from [facility] dermatology for the condition, and 2 weeks ago he began her on a course of oral doxycycline and topical clindamycin gel. He referred her to us for definitive management of the sinus tracts. She has a history of diabetes mellitus, with an A1c of 6.7, managed with metformin and Ozempic. Her hypertension is controlled with lisinopril, though she missed her dose on the day of the visit, leading to elevated readings. ROS: - Dermatological: Reports purulent drainage from lesions on the right upper back. - Endocrine: Reports diabetes mellitus, denies recent hypoglycemic episodes. - Cardiovascular: Reports hypertension, denies chest pain or palpitations. Attestation: Documentation on this patient encounter was supported using ambient scribe technology/ voice AI technology. The patient consented to recording for the purpose of documenting the encounter. Provider reviewed content of the generated note prior to signature. Subjective Subjective Current Encounter, 08 Mar 2025: Doing well overall. Has had some drainage from the right upper back wound. Objective Data Objective Data Vital Signs: Vital Signs Temp Pulse Resp BP 97.8 F 80 16 157/89 H 03/08/25 08:17 03/08/25 08:17 03/08/25 08:17 03/08/25 08:17 Charges/Coding Procedures Integumentary 111xxx-113xx: [id number] Maira subq tissue 20 sq cm/< Physical Exam Narrative - Skin: 2 x 2 cm area of fluctuance with purulent drainage on the right upper back, less inflamed today There was some keratin debris within the wound bed Debridement Note Debridement Note Wound debrided: Right upper back wound Laterality: Right Wound Grade/Stage: Stage III Type of Debridement: Excisional debridement Anesthesia Used: - (5 cc of 1% lidocaine with 1-200,000 epinephrine) Depth: in the subcutaneous layer Percentage of wound debrided: 100 Instrument Used: 7mm curette, #15 blade and Forceps Tissue Removed: Excised fibrinous exudate and keratin caseous skin debris Severity: Fat Layer Exposed Amount of bleeding with debridement: Mild Bleeding Controlled with: Compression and gauze and - (The epinephrine from local anesthesia) Patient tolerated procedure: Patient tolerated procedure well Post-Debridement Measurements and Additional Note: Post-Debridement Measurements/Treatment EDA - Nurse 1 - General Ulcer Assessment Start: 03/08/25 08:16 Freq: Status: Active Protocol: JOHNNIE Activity Type Activity Date Activity User E-sign Co-sign Detail Recorded Client Recorded Date Recorded By Document 03/08/25 08:17 DL [id number] 03/08/25 08:24 DL 03/08/25 08:17 WC - Today's Visit Information Type of service Follow-up Visit (Physician/DATA SERVICES DEVELOPER ) Arrival Mode Ambulatory Transfer Assistance None Patient Identification Verified (Name & Yes ) Patient Requires Transmission-Based No Precautions Vital Signs Temperature (97.8 F-99.1 F) 97.8 F Temperature Source Temporal Pulse Rate (60-100) 80 Pulse Location Monitor Respiratory Rate (12-18) 16 Respiratory rate source Observation Blood Pressure (90/60-120/80) 157/89 H Blood Pressure Mean (mm Hg) 111 Source Monitor History Since Last Visit- (Skip if this is Patient's initial visit) Have you changed medications since your No last visit? Any new allergies or adverse reactions No Had a fall/change in ADL's that may No increase risk of falls Signs or symptoms of abuse and/or No neglect since last visit Have you been in the hospital since your No last visit? Has dressing in place as prescribed Yes Has offloadiing in place as prescribed Yes Experienced any changes in pain level or No management Pain Scale: 0-10 Numeric Is Patient Pain Free? Yes EDA - Nurse 1 - General Ulcer Measurement Start: 03/08/25 08:16 Freq: Status: Active Protocol: Activity Type Activity Date Activity User E-sign Co-sign Detail Recorded Client Recorded Date Recorded By Document 03/08/25 08:17 DL [id number] 03/08/25 08:24 DL 03/08/25 08:17 Wound Center Nurse 1 Right upper back -Current Size (cm) - Length 0.2 -Current Size (cm) - Width 0.2 -Current Size (cm) - Depth 0.5 -Total Square Cm 0.04 -Photo Taken Yes -Exudate Amt Medium -Exudate Type Yellow/Green -Wound Margin Distinct, Outline Attached -Granulation Amt Large (67-100%) -Granulation Quality Pale -Necrosis Amt None Present (0 %) -Necrotic Tissue Type Adherent Slough -Structure Exposed N/A -Texture (Lorena-wound Skin Appearance) Scarring -Moisture (Lorena-wound Skin Appearance) No Abnormality -Color (Lorena-wound Skin Appearance) No Abnormality -Temperature (Lorena-wound Skin No Abnormality Appearance) (Pt Warm) -Tenderness on Palpation (Lorena-wound No Skin Appearance) -Foul Odor after Cleansing No -Anesthetic Used 4% Lidocaine Solution WC - Nurse 2 - General Ulcer CM Notes Start: 03/08/25 08:16 Freq: Status: Active Protocol: Activity Type Activity Date Activity User E-sign Co-sign Detail Recorded Client Recorded Date Recorded By Document 03/08/25 08:49 DS [id number] 03/08/25 08:55 DS 03/08/25 08:49 Wound Center Nurse 2 -Time 08:49 -Correct Patient Yes -Correct Side, Site, Position Yes -Correct Procedure Yes -Procedure Performed Yes -Type of Procedure Debridement -Clinical Debridement Subcutaneous -Tissue Removed Subcutaneous -Post Debridement (cm) - Length 1.0 -Post Debridement (cm) - Width 1.0 -Post Debridement (cm) - Depth 1.0 -Total Square (Post) (cm) 1.00 -Area of Debridement (cm) - Length 1.0 -Area of Debridement (cm) - Width 1.0 -Total Square (Area) (cm) 1.00 -Tunneling No -Undermining/Tunneling No -Circular Undermining No -Wound/Ulcer Outcome Not Healed -Ulcer Cleansing Rinsed/ Irrigated with Saline -Foul Odor after Cleansing No -Bioengineered Tissue No -Injectable Lidocaine w/ Epi (%) 1 -Injectable Lidocaine w/ Epi (mls) 10 -Bleeding Controlled with Pressure -Treatment Response Procedure Tolerated Well -Debridement - Subq, 1st 20sq cm Yes Pain Scale: 0-10 Numeric Is Patient Pain Free? Yes WC - Nurse 3 - General Ulcer D/C NN Start: 03/08/25 08:16 Freq: Status: Active Protocol: Activity Type Activity Date Activity User E-sign Co-sign Detail Recorded Client Recorded Date Recorded By Document 03/08/25 09:06 KW [id number] 03/08/25 09:08 KW 03/08/25 09:06 Wound Care Center Nurse 3 Right upper back -Primary Dressing Applied Hysept,Nugauze, Plain 1/2in -Primary Dressing Covered/Secured with Dry Gauze, Secured with Tape -Hysept 1 -Nugauze, Plain 1/2in 1 Pain Scale: 0-10 Numeric Is Patient Pain Free? Yes WC - Visit Discharge Discharge Condition Stable Ambulatory Status Ambulatory Transportation Private Auto Medication Reconcilliation completed & No provided to patient/care provider Clinical Summary of Care Provided Yes Assessment/Plan Assessment/Plan (1) Hidradenitis suppurativa: CODE(S): L73.2 - Hidradenitis suppurativa PLAN: Plan Assessment and Plan The patient is a 64-year-old female with a history of hidradenitis suppurativa presenting with persistent lesions on the right upper back. The lesions are characterized by purulent drainage and have been present for approximately two months, despite antibiotic therapy with doxycycline. The patient also has diabetes mellitus, with a recent A1c of 6.7, managed with metformin and Ozempic, and hypertension managed with lisinopril, though she missed her dose on the day of the visit. 1. Hidradenitis Suppurativa The plan involves continuing doxycycline and maintaining dressing for drainage. A debridement procedure is considered to address the sinus tract and promote healing from the inside out. Follow-up is scheduled in two weeks to reassess the condition and potentially demonstrate wound care techniques to the patient's who could help with dressing changes after the opening of the wound bed. Patient is in agreement with this plan to defer debridement from today to the appointment in 2 weeks when her spouse could be taught wound care. She was given strict return precautions and told to go to the emergency department if she develops fevers chills or systemic signs of infection. At this point the area is a chronic scarred sinus tract from hidradenitis and not an acute abscess. 2. Diabetes Mellitus The patient's diabetes is managed with metformin and Ozempic, with a recent A1c of 6.7. No changes to the current management plan were discussed during the visit. 3. Hypertension I advised her to go to the emergency department today as her blood pressure was too elevated, however she elected to go home instead and take her medicine. Plan from 08 March 2025: Debrided today at bedside. A specimen was sent for pathology. Appeared to be more of an epidermal inclusion cyst. Plan to follow-up pathology Iodoform packing with Dakin's soaking daily to the wound. Follow-up in 1 week
--- NOTE | 2025-03-08 13:39 | WC ---
PHOTO-BACK 03/08/25
--- NOTE | 2025-03-08 13:39 | WC ---
PHOTO-BACK 03/08/25
[2025-03-15 08:11] VITALS: BP 206/96; PULSE 80; RESP 18; TEMP 35.9
--- NOTE | 2025-03-15 08:53 | PCM.WC.PN ---
History of Present Illness Date of Service: 02/15/25 History of Wound: The patient is a 64-year-old female presenting with hidradenitis suppurativa. The condition involves purulent drainage from lesions on the right upper back, persisting for about two months. She has been seeing Dr. Guerrero from [facility] dermatology for the condition, and 2 weeks ago he began her on a course of oral doxycycline and topical clindamycin gel. He referred her to us for definitive management of the sinus tracts. She has a history of diabetes mellitus, with an A1c of 6.7, managed with metformin and Ozempic. Her hypertension is controlled with lisinopril, though she missed her dose on the day of the visit, leading to elevated readings. ROS: - Dermatological: Reports purulent drainage from lesions on the right upper back. - Endocrine: Reports diabetes mellitus, denies recent hypoglycemic episodes. - Cardiovascular: Reports hypertension, denies chest pain or palpitations. Attestation: Documentation on this patient encounter was supported using ambient scribe technology/ voice AI technology. The patient consented to recording for the purpose of documenting the encounter. Provider reviewed content of the generated note prior to signature. Subjective Subjective Current Encounter, 08 Mar 2025: Doing well overall. Has had some drainage from the right upper back wound. CURRENT ENCOUNTER, 15 Mar 2025: The patient is a 65-year-old female presenting with a dilated pore of Hunter on the right upper back. The condition was identified during a previous biopsy, which revealed a superficial epidermal invagination with hyperkeratosis and proliferative features suggestive of a dilated pore of Hunter. There was no evidence of malignancy observed in the biopsy results. The patient reported that the wound is less inflamed and appears healthier, described as a beefy red wound. The patient has been managing the wound with daily packing using 1/2-inch Iodoform soaked with Dakin's solution, which her assists with at home. The patient is able to shower and let water hit the wound, which has been part of the care routine. ROS: - Integumentary: Reports wound on the right upper back is less inflamed and appears healthier. Attestation: Documentation on this patient encounter was supported using ambient scribe technology/ voice AI technology. The patient consented to recording for the purpose of documenting the encounter. Provider reviewed content of the generated note prior to signature. Objective Data Objective Data Vital Signs: Vital Signs Temp Pulse Resp BP O2 Del Method 96.6 F L 80 18 206/96 H Room Air 03/15/25 08:11 03/15/25 08:11 03/15/25 08:11 03/15/25 08:11 03/15/25 08:11 Oxygen Delivery Method Room Air Charges/Coding Procedures Integumentary 111xxx-113xx: 74825 Maira subq tissue 20 sq cm/< Physical Exam Narrative Right upper back wound with beefy red granulation at the base and some fibrinous exudate. Debrided It measure 1 x 0.5 cm and was 1 cm deep. Debridement Note Debridement Note Wound debrided: Right upper back Laterality: Right Wound Grade/Stage: Stage 3 (sub Q) Type of Debridement: Excisional debridement Anesthesia Used: 4% Lidocaine Solution Depth: in the subcutaneous layer Percentage of wound debrided: 100 Instrument Used: 7mm curette Tissue Removed: Fibrinous exudate Severity: Fat Layer Exposed Amount of bleeding with debridement: Mild Bleeding Controlled with: Compression and gauze Patient tolerated procedure: Patient tolerated procedure well Post-Debridement Measurements and Additional Note: Post-Debridement Measurements/Treatment - Nurse 1 - General Ulcer Assessment Start: 03/08/25 08:16 Freq: Status: Active Protocol: EDA.RADHA Activity Type Activity Date Activity User E-sign Co-sign Detail Recorded Client Recorded Date Recorded By Document 03/08/25 08:17 DL [id number] 03/08/25 08:24 DL Document 03/15/25 08:11 KW [id number] 03/15/25 08:21 KW 03/08/25 03/15/25 08:17 08:11 - Today's Visit Information Type of service Follow-up Visit Follow-up Visit (Physician/RETAIL MERCHANDISING MANAGER (Physician/RETAIL MERCHANDISING MANAGER ) ) Arrival Mode Ambulatory Ambulatory Transfer Assistance None Patient Identification Verified (Name & Yes Yes ) Patient Requires Transmission-Based No Precautions Vital Signs Temperature (97.8 F-99.1 F) 97.8 F 96.6 F L Temperature Source Temporal Temporal Pulse Rate (60-100) 80 80 Pulse Location Monitor Monitor Respiratory Rate (12-18) 16 18 Respiratory rate source Observation Observation Oxygen Delivery Method Room Air Blood Pressure (90/60-120/80) 157/89 H 206/96 H Blood Pressure Mean (mm Hg) 111 132 Source Monitor Monitor Position Sitting Blood Pressure Location Right Forearm History Since Last Visit- (Skip if this is Patient's initial visit) Have you changed medications since your No No last visit? Any new allergies or adverse reactions No No Had a fall/change in ADL's that may No No increase risk of falls Signs or symptoms of abuse and/or No No neglect since last visit Have you been in the hospital since your No No last visit? Has dressing in place as prescribed Yes Yes Has compression in place as prescribed N/A Has offloadiing in place as prescribed Yes N/A Experienced any changes in pain level or No No management Left Footwear Regular Shoe Right Footwear Regular Shoe Pain Scale: 0-10 Numeric Is Patient Pain Free? Yes Yes WC - Nurse 1 - General Ulcer Measurement Start: 03/08/25 08:16 Freq: Status: Active Protocol: Activity Type Activity Date Activity User E-sign Co-sign Detail Recorded Client Recorded Date Recorded By Document 03/08/25 08:17 DL [id number] 03/08/25 08:24 DL Document 03/15/25 08:11 KW [id number] 03/15/25 08:21 KW 03/08/25 03/15/25 08:17 08:11 Wound Center Nurse 1 Right upper back -Current Size (cm) - Length 0.2 0.8 -Current Size (cm) - Width 0.2 1 -Current Size (cm) - Depth 0.5 1.1 -Total Square Cm 0.04 0.8 -Photo Taken Yes -Exudate Amt Medium Medium -Exudate Type Yellow/Green -Wound Margin Distinct, Distinct, Outline Outline Attached Attached -Granulation Amt Large (67-100%) Large (67-100%) -Granulation Quality Pale Red -Necrosis Amt None Present (0 %) -Necrotic Tissue Type Adherent Slough -Structure Exposed N/A -Texture (Lorena-wound Skin Appearance) Scarring Assessed -Moisture (Lorena-wound Skin Appearance) No Abnormality Assessed -Color (Lorena-wound Skin Appearance) No Abnormality Assessed -Temperature (Lorena-wound Skin No Abnormality No Abnormality Appearance) (Pt Warm) (Pt Warm) -Tenderness on Palpation (Lorena-wound No No Skin Appearance) -Ulcer Cleansing Soap and Water -Foul Odor after Cleansing No No -Anesthetic Used 4% Lidocaine 5% Lidocaine Solution Gel WC - Nurse 2 - General Ulcer CM Notes Start: 03/08/25 08:16 Freq: Status: Active Protocol: Activity Type Activity Date Activity User E-sign Co-sign Detail Recorded Client Recorded Date Recorded By Document 03/08/25 08:49 DS [id number] 03/08/25 08:55 DS Document 03/15/25 08:38 JF [id number] 03/15/25 08:39 JF 03/08/25 03/15/25 08:49 08:38 Wound Center Nurse 2 Right upper back -Time 08:49 08:38 -Correct Patient Yes Yes -Correct Side, Site, Position Yes Yes -Correct Procedure Yes Yes -Procedure Performed Yes Yes -Type of Procedure Debridement Debridement -Clinical Debridement Subcutaneous Subcutaneous -Tissue Removed Subcutaneous Subcutaneous -Post Debridement (cm) - Length 1.0 1 -Post Debridement (cm) - Width 1.0 0.5 -Post Debridement (cm) - Depth 1.0 1.0 -Total Square (Post) (cm) 1.00 0.5 -Area of Debridement (cm) - Length 1.0 1.0 -Area of Debridement (cm) - Width 1.0 0.5 -Total Square (Area) (cm) 1.00 0.50 -Tunneling No No -Undermining/Tunneling No No -Circular Undermining No No -Wound/Ulcer Outcome Not Healed Not Healed -Ulcer Cleansing Rinsed/ Rinsed/ Irrigated with Irrigated with Saline Saline -Foul Odor after Cleansing No No -Bioengineered Tissue No No -Injectable Lidocaine w/ Epi (%) 1 -Injectable Lidocaine w/ Epi (mls) 10 -Bleeding Controlled with Pressure Pressure -Treatment Response Procedure Procedure Tolerated Well Tolerated Well -Offloading No -Debridement - Subq, 1st 20sq cm Yes Yes Pain Scale: 0-10 Numeric Is Patient Pain Free? Yes Yes WC - Nurse 3 - General Ulcer D/C NN Start: 03/08/25 08:16 Freq: Status: Active Protocol: Activity Type Activity Date Activity User E-sign Co-sign Detail Recorded Client Recorded Date Recorded By Document 03/08/25 09:06 KW [id number] 03/08/25 09:08 KW Document 03/15/25 08:42 JF [id number] 03/15/25 08:42 JF 03/08/25 03/15/25 09:06 08:42 Wound Care Center Nurse 3 Right upper back -Ulcer Cleansing Rinsed/ Irrigated with Saline -Foul Odor after Cleansing No -Primary Dressing Applied Hysept,Nugauze, Plain 1/2in -Other Dressing own supplies 1/ 2 iodoform packing with dakins -Primary Dressing Covered/Secured with Dry Gauze, Dry Gauze, Secured with Secured with Tape Tape -Hysept 1 -Nugauze, Plain 1/2in 1 Pain Scale: 0-10 Numeric Is Patient Pain Free? Yes Yes WC - Visit Discharge Discharge Condition Stable Stable Ambulatory Status Ambulatory Ambulatory Transportation Private Auto Private Auto Medication Reconcilliation completed & No Yes provided to patient/care provider Clinical Summary of Care Provided Yes Yes Assessment/Plan Assessment/Plan (1) Dilated pore of Hunter of back: CODE(S): D23.5 - Other benign neoplasm of skin of trunk (2) Open back wound: CODE(S): S21.209A - Unspecified open wound of unspecified back wall of thorax without penetration into thoracic cavity, initial encounter PLAN: Plan - Biopsy: Superficial epidermal invagination with hyperkeratosis and proliferative features suggestive of a dilated pore of Hunter; no significant inflammation or evidence of malignancy observed. - Pap smear: No abnormal findings. Assessment and Plan 65-year-old female with a history of a dilated pore of Hunter presenting with a follow-up for wound management. The biopsy results confirmed a superficial epidermal invagination with hyperkeratosis and proliferative features, with no evidence of malignancy, indicating a benign condition. The wound appears less inflamed and healthier, described as a beefy red wound, and is being managed with daily packing using Iodiform and Dakin's solution. 1. Dilated Pore Of Hunter The patient will continue with daily wound care using 1/2-inch Iodiform soaked with Dakin's solution, assisted by her . The wound should be kept clean, and the patient is advised to allow water to hit the wound during showers to maintain hygiene. Follow-up is planned in two weeks to assess the healing progress and adjust care as needed. - Continue daily wound care with Iodiform and Dakin's solution. - Allow water to hit the wound during showers to keep it clean. - Return for follow-up in two weeks to check on healing progress.
--- NOTE | 2025-03-15 08:53 | PCM.WC.PN ---
History of Present Illness Date of Service: 02/15/25 History of Wound: The patient is a 64-year-old female presenting with hidradenitis suppurativa. The condition involves purulent drainage from lesions on the right upper back, persisting for about two months. She has been seeing Dr. Guerrero from [facility] dermatology for the condition, and 2 weeks ago he began her on a course of oral doxycycline and topical clindamycin gel. He referred her to us for definitive management of the sinus tracts. She has a history of diabetes mellitus, with an A1c of 6.7, managed with metformin and Ozempic. Her hypertension is controlled with lisinopril, though she missed her dose on the day of the visit, leading to elevated readings. ROS: - Dermatological: Reports purulent drainage from lesions on the right upper back. - Endocrine: Reports diabetes mellitus, denies recent hypoglycemic episodes. - Cardiovascular: Reports hypertension, denies chest pain or palpitations. Attestation: Documentation on this patient encounter was supported using ambient scribe technology/ voice AI technology. The patient consented to recording for the purpose of documenting the encounter. Provider reviewed content of the generated note prior to signature. Subjective Subjective Current Encounter, 08 Mar 2025: Doing well overall. Has had some drainage from the right upper back wound. CURRENT ENCOUNTER, 15 Mar 2025: The patient is a 65-year-old female presenting with a dilated pore of Hunter on the right upper back. The condition was identified during a previous biopsy, which revealed a superficial epidermal invagination with hyperkeratosis and proliferative features suggestive of a dilated pore of Hunter. There was no evidence of malignancy observed in the biopsy results. The patient reported that the wound is less inflamed and appears healthier, described as a beefy red wound. The patient has been managing the wound with daily packing using 1/2-inch Iodoform soaked with Dakin's solution, which her assists with at home. The patient is able to shower and let water hit the wound, which has been part of the care routine. ROS: - Integumentary: Reports wound on the right upper back is less inflamed and appears healthier. Attestation: Documentation on this patient encounter was supported using ambient scribe technology/ voice AI technology. The patient consented to recording for the purpose of documenting the encounter. Provider reviewed content of the generated note prior to signature. Objective Data Objective Data Vital Signs: Vital Signs Temp Pulse Resp BP O2 Del Method 96.6 F L 80 18 206/96 H Room Air 03/15/25 08:11 03/15/25 08:11 03/15/25 08:11 03/15/25 08:11 03/15/25 08:11 Oxygen Delivery Method Room Air Charges/Coding Procedures Integumentary 111xxx-113xx: [id number] Maira subq tissue 20 sq cm/< Physical Exam Narrative Right upper back wound with beefy red granulation at the base and some fibrinous exudate. Debrided It measure 1 x 0.5 cm and was 1 cm deep. Debridement Note Debridement Note Wound debrided: Right upper back Laterality: Right Wound Grade/Stage: Stage 3 (sub Q) Type of Debridement: Excisional debridement Anesthesia Used: 4% Lidocaine Solution Depth: in the subcutaneous layer Percentage of wound debrided: 100 Instrument Used: 7mm curette Tissue Removed: Fibrinous exudate Severity: Fat Layer Exposed Amount of bleeding with debridement: Mild Bleeding Controlled with: Compression and gauze Patient tolerated procedure: Patient tolerated procedure well Post-Debridement Measurements and Additional Note: Post-Debridement Measurements/Treatment - Nurse 1 - General Ulcer Assessment Start: 03/08/25 08:16 Freq: Status: Active Protocol: EDA.RADHA Activity Type Activity Date Activity User E-sign Co-sign Detail Recorded Client Recorded Date Recorded By Document 03/08/25 08:17 DL [id number] 03/08/25 08:24 DL Document 03/15/25 08:11 KW [id number] 03/15/25 08:21 KW 03/08/25 03/15/25 08:17 08:11 - Today's Visit Information Type of service Follow-up Visit Follow-up Visit (Physician/DIRECTOR OF ENROLLMENT (Physician/DIRECTOR OF ENROLLMENT ) ) Arrival Mode Ambulatory Ambulatory Transfer Assistance None Patient Identification Verified (Name & Yes Yes ) Patient Requires Transmission-Based No Precautions Vital Signs Temperature (97.8 F-99.1 F) 97.8 F 96.6 F L Temperature Source Temporal Temporal Pulse Rate (60-100) 80 80 Pulse Location Monitor Monitor Respiratory Rate (12-18) 16 18 Respiratory rate source Observation Observation Oxygen Delivery Method Room Air Blood Pressure (90/60-120/80) 157/89 H 206/96 H Blood Pressure Mean (mm Hg) 111 132 Source Monitor Monitor Position Sitting Blood Pressure Location Right Forearm History Since Last Visit- (Skip if this is Patient's initial visit) Have you changed medications since your No No last visit? Any new allergies or adverse reactions No No Had a fall/change in ADL's that may No No increase risk of falls Signs or symptoms of abuse and/or No No neglect since last visit Have you been in the hospital since your No No last visit? Has dressing in place as prescribed Yes Yes Has compression in place as prescribed N/A Has offloadiing in place as prescribed Yes N/A Experienced any changes in pain level or No No management Left Footwear Regular Shoe Right Footwear Regular Shoe Pain Scale: 0-10 Numeric Is Patient Pain Free? Yes Yes WC - Nurse 1 - General Ulcer Measurement Start: 03/08/25 08:16 Freq: Status: Active Protocol: Activity Type Activity Date Activity User E-sign Co-sign Detail Recorded Client Recorded Date Recorded By Document 03/08/25 08:17 DL [id number] 03/08/25 08:24 DL Document 03/15/25 08:11 KW [id number] 03/15/25 08:21 KW 03/08/25 03/15/25 08:17 08:11 Wound Center Nurse 1 Right upper back -Current Size (cm) - Length 0.2 0.8 -Current Size (cm) - Width 0.2 1 -Current Size (cm) - Depth 0.5 1.1 -Total Square Cm 0.04 0.8 -Photo Taken Yes -Exudate Amt Medium Medium -Exudate Type Yellow/Green -Wound Margin Distinct, Distinct, Outline Outline Attached Attached -Granulation Amt Large (67-100%) Large (67-100%) -Granulation Quality Pale Red -Necrosis Amt None Present (0 %) -Necrotic Tissue Type Adherent Slough -Structure Exposed N/A -Texture (Lorena-wound Skin Appearance) Scarring Assessed -Moisture (Lorena-wound Skin Appearance) No Abnormality Assessed -Color (Lorena-wound Skin Appearance) No Abnormality Assessed -Temperature (Lorena-wound Skin No Abnormality No Abnormality Appearance) (Pt Warm) (Pt Warm) -Tenderness on Palpation (Lorena-wound No No Skin Appearance) -Ulcer Cleansing Soap and Water -Foul Odor after Cleansing No No -Anesthetic Used 4% Lidocaine 5% Lidocaine Solution Gel WC - Nurse 2 - General Ulcer CM Notes Start: 03/08/25 08:16 Freq: Status: Active Protocol: Activity Type Activity Date Activity User E-sign Co-sign Detail Recorded Client Recorded Date Recorded By Document 03/08/25 08:49 DS [id number] 03/08/25 08:55 DS Document 03/15/25 08:38 JF [id number] 03/15/25 08:39 JF 03/08/25 03/15/25 08:49 08:38 Wound Center Nurse 2 Right upper back -Time 08:49 08:38 -Correct Patient Yes Yes -Correct Side, Site, Position Yes Yes -Correct Procedure Yes Yes -Procedure Performed Yes Yes -Type of Procedure Debridement Debridement -Clinical Debridement Subcutaneous Subcutaneous -Tissue Removed Subcutaneous Subcutaneous -Post Debridement (cm) - Length 1.0 1 -Post Debridement (cm) - Width 1.0 0.5 -Post Debridement (cm) - Depth 1.0 1.0 -Total Square (Post) (cm) 1.00 0.5 -Area of Debridement (cm) - Length 1.0 1.0 -Area of Debridement (cm) - Width 1.0 0.5 -Total Square (Area) (cm) 1.00 0.50 -Tunneling No No -Undermining/Tunneling No No -Circular Undermining No No -Wound/Ulcer Outcome Not Healed Not Healed -Ulcer Cleansing Rinsed/ Rinsed/ Irrigated with Irrigated with Saline Saline -Foul Odor after Cleansing No No -Bioengineered Tissue No No -Injectable Lidocaine w/ Epi (%) 1 -Injectable Lidocaine w/ Epi (mls) 10 -Bleeding Controlled with Pressure Pressure -Treatment Response Procedure Procedure Tolerated Well Tolerated Well -Offloading No -Debridement - Subq, 1st 20sq cm Yes Yes Pain Scale: 0-10 Numeric Is Patient Pain Free? Yes Yes WC - Nurse 3 - General Ulcer D/C NN Start: 03/08/25 08:16 Freq: Status: Active Protocol: Activity Type Activity Date Activity User E-sign Co-sign Detail Recorded Client Recorded Date Recorded By Document 03/08/25 09:06 KW [id number] 03/08/25 09:08 KW Document 03/15/25 08:42 JF [id number] 03/15/25 08:42 JF 03/08/25 03/15/25 09:06 08:42 Wound Care Center Nurse 3 Right upper back -Ulcer Cleansing Rinsed/ Irrigated with Saline -Foul Odor after Cleansing No -Primary Dressing Applied Hysept,Nugauze, Plain 1/2in -Other Dressing own supplies 1/ 2 iodoform packing with dakins -Primary Dressing Covered/Secured with Dry Gauze, Dry Gauze, Secured with Secured with Tape Tape -Hysept 1 -Nugauze, Plain 1/2in 1 Pain Scale: 0-10 Numeric Is Patient Pain Free? Yes Yes WC - Visit Discharge Discharge Condition Stable Stable Ambulatory Status Ambulatory Ambulatory Transportation Private Auto Private Auto Medication Reconcilliation completed & No Yes provided to patient/care provider Clinical Summary of Care Provided Yes Yes Assessment/Plan Assessment/Plan (1) Dilated pore of Hunter of back: CODE(S): D23.5 - Other benign neoplasm of skin of trunk (2) Open back wound: CODE(S): S21.209A - Unspecified open wound of unspecified back wall of thorax without penetration into thoracic cavity, initial encounter PLAN: Plan - Biopsy: Superficial epidermal invagination with hyperkeratosis and proliferative features suggestive of a dilated pore of Hunter; no significant inflammation or evidence of malignancy observed. - Pap smear: No abnormal findings. Assessment and Plan 65-year-old female with a history of a dilated pore of Hunter presenting with a follow-up for wound management. The biopsy results confirmed a superficial epidermal invagination with hyperkeratosis and proliferative features, with no evidence of malignancy, indicating a benign condition. The wound appears less inflamed and healthier, described as a beefy red wound, and is being managed with daily packing using Iodiform and Dakin's solution. 1. Dilated Pore Of Hunter The patient will continue with daily wound care using 1/2-inch Iodiform soaked with Dakin's solution, assisted by her . The wound should be kept clean, and the patient is advised to allow water to hit the wound during showers to maintain hygiene. Follow-up is planned in two weeks to assess the healing progress and adjust care as needed. - Continue daily wound care with Iodiform and Dakin's solution. - Allow water to hit the wound during showers to keep it clean. - Return for follow-up in two weeks to check on healing progress.
== END 2025-03-21 23:59 | disposition home or self-care (01) ==
LOC: WC 08:00
PROVIDERS: PCP Family Medicine; Referring Provider Dermatology; Visit Provider Surgery Plastic and Reconstructive Surgery
DX: D23.5 Other benign neoplasm of skin of trunk (principal); E11.9 Type 2 diabetes mellitus without complications; S21.209A Unspecified open wound of unspecified back wall of thorax without penetration into thoracic cavity, initial encounter; L73.2 Hidradenitis suppurativa; I10 Essential (primary) hypertension; Z79.84 Long term (current) use of oral hypoglycemic drugs; Z79.85 Long-term (current) use of injectable non-insulin antidiabetic drugs; Z79.899 Other long term (current) drug therapy
CPT/HCPCS: 11042; 88305

== ENCOUNTER 2025-04-12 08:00 | Outpatient (RCR) | payer BC, SELFPAY ==
[2025-03-29 10:17] VITALS: BP 197/94; PULSE 66; RESP 15; TEMP 36.3
--- NOTE | 2025-03-30 09:43 | PN.PCM_ITS ---
History of Present Illness Date of Service: 03/29/25 History of Wound: The patient is a 64-year-old female presenting with hidr adenitis suppurativa. The condition involves purulent drainage from lesions on the right upper back, persisting for about two months. She has been seeing Dr. Guerrero from [facility] dermatology for the condition, and 2 weeks ago he began her on a course of oral doxycycline and topical clindamycin gel. He referred her to us for definitive management of the sinus tracts. She has a history of diabetes mellitus, with an A1c of 6.7, managed with metformin and Ozempic. Her hypertension is controlled with lisinopril, though she missed her dose on the day of the visit, leading to elevated readings. ROS: - Dermatological: Reports purulent drainage from lesions on the right upper back. - Endocrine: Reports diabetes mellitus, denies recent hypoglycemic episodes. - Cardiovascular: Reports hypertension, denies chest pain or palpitations. Attestation: Documentation on this patient encounter was supported using ambient scribe technology/ voice AI technology. The patient consented to recording for the purpose of documenting the encounter. Provider reviewed content of the generated note prior to signature. Subjective Subjective Current Encounter, 08 Mar 2025: Doing well overall. Has had some drainage from the right upper back wound. 15 Mar 2025: The patient is a 65-year-old female presenting with a dilated pore of Hunter on the right upper back. The condition was identified during a previous biopsy, which revealed a superficial epidermal invagination with hyperkeratosis and proliferative features suggestive of a dilated pore of Hunter. There was no evidence of malignancy observed in the biopsy results. The patient reported that the wound is less inflamed and appears healthier, described as a beefy red wound. The patient has been managing the wound with daily packing using 1/2-inch Iodoform soaked with Dakin's solution, which her assists with at home. The patient is able to shower and let water hit the wound, which has been part of the care routine. ROS: - Integumentary: Reports wound on the right upper back is less inflamed and appears healthier. Attestation: Documentation on this patient encounter was supported using ambient scribe technology/ voice AI technology. The patient consented to recording for the purpose of documenting the encounter. Provider reviewed content of the generated note prior to signature. CURRENT ENCOUNTER, 29 March 2025 Tolerating dressing changes and her has been helping. No fevers chills or drainage Objective Data Objective Data Vital Signs: Vital Signs Temp Pulse Resp BP 97.4 F L 66 15 197/94 H 03/29/25 10:17 03/29/25 10:17 03/29/25 10:17 03/29/25 10:17 Charges/Coding Procedures Integumentary 111xxx-113xx: [id number] Maira subq tissue 20 sq cm/< Physical Exam Narrative Right upper back wound with beefy red granulation at the base and some fibrinous exudate. Debrided It measure 1.2 x 1.2 cm and 1.5 cm deep Stage III ulcer Debridement Note Debridement Note Wound debrided: Right upper back wound Laterality: Right Wound Grade/Stage: Stage III Type of Debridement: Excisional debridement Anesthesia Used: 4% Lidocaine Solution and - (5 cc of 1% lidocaine with 1- 200,000 epinephrine) Depth: in the subcutaneous layer Percentage of wound debrided: 100 Instrument Used: 7mm curette, #15 blade, Forceps and - (And scissors for sharp excision) Tissue Removed: Fibrinous exudate and keratin debris and cyst wall at the base of the wound Severity: Fat Layer Exposed Amount of bleeding with debridement: Moderate Bleeding Controlled with: Compression and gauze Patient tolerated procedure: Patient tolerated procedure well Post-Debridement Measurements and Additional Note: Post-Debridement Measurements/Treatment - Nurse 1 - General Ulcer Assessment Start: 03/29/25 10:17 Freq: Status: Active Protocol: WC.LOWBRITTANYT Activity Type Activity Date Activity User E-sign Co-sign Detail Recorded Client Recorded Date Recorded By Document 03/29/25 10:17 [id number] 03/29/25 10:19 ML 03/29/25 10:17 - Today's Visit Information Type of service Follow-up Visit (Physician/FISHERIES MANAGER ) Arrival Mode Ambulatory Transfer Assistance None Patient Identification Verified (Name & Yes ) Patient Requires Transmission-Based No Precautions Vital Signs Temperature (97.8 F-99.1 F) 97.4 F L Temperature Source Temporal Pulse Rate (60-100) 66 Pulse Location Monitor Respiratory Rate (12-18) 15 Respiratory rate source Observation Blood Pressure (90/60-120/80) 197/94 H Blood Pressure Mean (mm Hg) 128 Source Monitor Position Sitting Blood Pressure Location Right Arm History Since Last Visit- (Skip if this is Patient's initial visit) Have you changed medications since your No last visit? Any new allergies or adverse reactions No Had a fall/change in ADL's that may No increase risk of falls Signs or symptoms of abuse and/or No neglect since last visit Have you been in the hospital since your No last visit? Has dressing in place as prescribed Yes Has compression in place as prescribed N/A Has offloadiing in place as prescribed N/A Experienced any changes in pain level or No management Pain Scale: 0-10 Numeric Is Patient Pain Free? Yes - Nurse 1 - General Ulcer Measurement Start: 03/29/25 10:17 Freq: Status: Active Protocol: Activity Type Activity Date Activity User E-sign Co-sign Detail Recorded Client Recorded Date Recorded By Document 03/29/25 10:17 ML [id number] 03/29/25 10:19 ML 03/29/25 10:17 Wound Center Nurse 1 Right upper back -Current Size (cm) - Length 1 -Current Size (cm) - Width 1 -Current Size (cm) - Depth 0.3 -Total Square Cm 1 -Exudate Amt Medium -Exudate Type Serosanguineous -Granulation Amt Medium (34-66%) -Necrosis Amt Medium (34-66%) -Necrotic Tissue Type Adherent Slough -Texture (Lorena-wound Skin Appearance) Assessed -Moisture (Lorena-wound Skin Appearance) Assessed -Color (Lorena-wound Skin Appearance) Assessed -Temperature (Lorena-wound Skin No Abnormality Appearance) (Pt Warm) -Tenderness on Palpation (Lorena-wound No Skin Appearance) -Ulcer Cleansing Rinsed/ Irrigated with Saline -Foul Odor after Cleansing No -Anesthetic Used 5% Lidocaine Gel - Nurse 2 - General Ulcer CM Notes Start: 03/29/25 10:17 Freq: Status: Active Protocol: Activity Type Activity Date Activity User E-sign Co-sign Detail Recorded Client Recorded Date Recorded By Document 03/29/25 11:15 [email or web address] [id number] 03/29/25 11:31 JF Edit Result 03/29/25 11:15 JF (1) [id number] 03/29/25 11:35 JF (1) Right upper back - Post Debridement (cm) - Length => 1.2 - Post Debridement (cm) - Width => 1.2 - Post Debridement (cm) - Depth => 1.5 - Total Square (Post) (cm) => 1.44 - Area of Debridement (cm) - Length => 1.2 - Area of Debridement (cm) - Width => 1.2 - Total Square (Area) (cm) => 1.44 03/29/25 11:15 Wound Center Nurse 2 -Time 11:16 -Correct Patient Yes -Correct Side, Site, Position Yes -Correct Procedure Yes -Procedure Performed Yes -Type of Procedure Debridement -Clinical Debridement Subcutaneous -Tissue Removed Subcutaneous -Post Debridement (cm) - Length 1.2 -Post Debridement (cm) - Width 1.2 -Post Debridement (cm) - Depth 1.5 -Total Square (Post) (cm) 1.44 -Area of Debridement (cm) - Length 1.2 -Area of Debridement (cm) - Width 1.2 -Total Square (Area) (cm) 1.44 -Tunneling No -Undermining/Tunneling No -Circular Undermining No -Wound/Ulcer Outcome Not Healed -Ulcer Cleansing Rinsed/ Irrigated with Saline -Foul Odor after Cleansing No -Bioengineered Tissue No -Bleeding Controlled with Pressure -Treatment Response Procedure Tolerated Well -Offloading No -Debridement - Subq, 1st 20sq cm Yes Pain Scale: 0-10 Numeric Is Patient Pain Free? Yes - Nurse 3 - General Ulcer D/C NN Start: 03/29/25 10:17 Freq: Status: Active Protocol: Activity Type Activity Date Activity User E-sign Co-sign Detail Recorded Client Recorded Date Recorded By Document 03/29/25 11:36 [id number] 03/29/25 11:38 03/29/25 11:36 Wound Care Center Nurse 3 Right upper back -Ulcer Cleansing Rinsed/ Irrigated with Saline -Primary Dressing Applied C Hydrogel, Nugauze, Plain 1/4in -Primary Dressing Covered/Secured with Dry Gauze, Secured with Tape -Hydrogel 1 -Nugauze, Plain 1/4in 1 Pain Scale: 0-10 Numeric Is Patient Pain Free? Yes - Visit Discharge Discharge Condition Stable Ambulatory Status Ambulatory Transportation Private Auto Medication Reconcilliation completed & No provided to patient/care provider Clinical Summary of Care Provided Yes Assessment/Plan Assessment/Plan (1) Ulcer of back: CODE(S): L98.429 - Non-pressure chronic ulcer of back with unspecified severity PLAN: Right upper back stage III ulcer debrided today Continue wet-to-dry dressings twice daily Follow-up in 2 weeks
--- NOTE | 2025-03-31 09:32 | WC ---
PHOTO-BACK 03/29/25
[2025-04-12 08:07] VITALS: BP 197/105; PULSE 71; RESP 18; TEMP 36.1
--- NOTE | 2025-04-13 09:09 | PCM.WC.PN ---
History of Present Illness Date of Service: 04/12/25 History of Wound: The patient is a 64-year-old female presenting with hidradenitis suppurativa. The condition involves purulent drainage from lesions on the right upper back, persisting for about two months. She has been seeing Dr. Guerrero from [facility] dermatology for the condition, and 2 weeks ago he began her on a course of oral doxycycline and topical clindamycin gel. He referred her to us for definitive management of the sinus tracts. She has a history of diabetes mellitus, with an A1c of 6.7, managed with metformin and Ozempic. Her hypertension is controlled with lisinopril, though she missed her dose on the day of the visit, leading to elevated readings. ROS: - Dermatological: Reports purulent drainage from lesions on the right upper back. - Endocrine: Reports diabetes mellitus, denies recent hypoglycemic episodes. - Cardiovascular: Reports hypertension, denies chest pain or palpitations. Attestation: Documentation on this patient encounter was supported using ambient scribe technology/ voice AI technology. The patient consented to recording for the purpose of documenting the encounter. Provider reviewed content of the generated note prior to signature. Subjective Subjective Current Encounter, 08 Mar 2025: Doing well overall. Has had some drainage from the right upper back wound. 15 Mar 2025: The patient is a 65-year-old female presenting with a dilated pore of Hunter on the right upper back. The condition was identified during a previous biopsy, which revealed a superficial epidermal invagination with hyperkeratosis and proliferative features suggestive of a dilated pore of Hunter. There was no evidence of malignancy observed in the biopsy results. The patient reported that the wound is less inflamed and appears healthier, described as a beefy red wound. The patient has been managing the wound with daily packing using 1/2-inch Iodoform soaked with Dakin's solution, which her assists with at home. The patient is able to shower and let water hit the wound, which has been part of the care routine. ROS: - Integumentary: Reports wound on the right upper back is less inflamed and appears healthier. Attestation: Documentation on this patient encounter was supported using ambient scribe technology/ voice AI technology. The patient consented to recording for the purpose of documenting the encounter. Provider reviewed content of the generated note prior to signature. 29 March 2025 Tolerating dressing changes and her has been helping. No fevers chills or drainage CURRENT ENCOUNTER, 12 Apr 2025: Doing well overall. Has been compliant with dressing changes and has been getting help from her Objective Data Objective Data Vital Signs: Vital Signs Temp Pulse Resp BP O2 Del Method 97.0 F L 71 18 197/105 H Room Air 04/12/25 08:07 04/12/25 08:07 04/12/25 08:07 04/12/25 08:07 04/12/25 08:07 Oxygen Delivery Method Room Air Charges/Coding Multi Select Codes Integumentary Integumentary CPT Codes: 73112 Maira subq tissue 20 sq cm/< Physical Exam Narrative Right upper back wound with beefy red granulation at the base and some fibrinous exudate. Debrided It measure 1 x 1 cm and 1 cm deep Stage III ulcer Debridement Note Debridement Note Wound debrided: Right upper back Laterality: Right Wound Grade/Stage: Stage III Type of Debridement: Excisional debridement Anesthesia Used: 4% Lidocaine Solution Depth: in the subcutaneous layer Percentage of wound debrided: 100 Instrument Used: 7mm curette Tissue Removed: Fibrinous exudate at the base of the wound Severity: Fat Layer Exposed Amount of bleeding with debridement: Mild Bleeding Controlled with: Compression and gauze Patient tolerated procedure: Patient tolerated procedure well Post-Debridement Measurements and Additional Note: Post-Debridement Measurements/Treatment - Nurse 1 - General Ulcer Assessment Start: 03/29/25 10:17 Freq: Status: Active Protocol: WC.LOWBRITTANYT Activity Type Activity Date Activity User E-sign Co-sign Detail Recorded Client Recorded Date Recorded By Document 03/29/25 10:17 ML [id number] 03/29/25 10:19 ML Document 04/12/25 08:07 DS [id number] 04/12/25 08:16 DS 03/29/25 04/12/25 10:17 08:07 - Today's Visit Information Type of service Follow-up Visit Follow-up Visit (Physician/GUILLOTINE OPERATOR (Physician/GUILLOTINE OPERATOR ) ) Arrival Mode Ambulatory Ambulatory Transfer Assistance None Patient Identification Verified (Name & Yes Yes ) Patient Requires Transmission-Based No No Precautions Safety Precautions Fall Prevention Vital Signs Temperature (97.8 F-99.1 F) 97.4 F L 97.0 F L Temperature Source Temporal Temporal Pulse Rate (60-100) 66 71 Pulse Location Monitor Monitor Respiratory Rate (12-18) 15 18 Respiratory rate source Observation Observation Oxygen Delivery Method Room Air Blood Pressure (90/60-120/80) 197/94 H 197/105 H Blood Pressure Mean (mm Hg) 128 135 Source Monitor Manual Position Sitting Blood Pressure Location Right Arm Right Forearm History Since Last Visit- (Skip if this is Patient's initial visit) Have you changed medications since your No No last visit? Any new allergies or adverse reactions No No Had a fall/change in ADL's that may No No increase risk of falls Signs or symptoms of abuse and/or No No neglect since last visit Have you been in the hospital since your No No last visit? Has dressing in place as prescribed Yes Yes Has compression in place as prescribed N/A N/A Has offloadiing in place as prescribed N/A N/A Experienced any changes in pain level or No No management Left Footwear Regular Shoe Right Footwear Regular Shoe Pain Scale: 0-10 Numeric Is Patient Pain Free? Yes Yes WC - Nurse 1 - General Ulcer Measurement Start: 03/29/25 10:17 Freq: Status: Active Protocol: Activity Type Activity Date Activity User E-sign Co-sign Detail Recorded Client Recorded Date Recorded By Document 03/29/25 10:17 ML [id number] 03/29/25 10:19 ML Document 04/12/25 08:07 DS [id number] 04/12/25 08:16 DS 03/29/25 04/12/25 10:17 08:07 Wound Center Nurse 1 Right upper back -Current Size (cm) - Length 1 1.0 -Current Size (cm) - Width 1 0.8 -Current Size (cm) - Depth 0.3 0.8 -Total Square Cm 1 0.80 -Date of Last Picture (Recall this 04/12/25 field) -Photo Taken Yes -Tunneling No -Undermining/Tunneling Yes -Undermining/Tunneling Starts (O'clock 4 ) -Undermining/Tunneling Ends (O'clock) 8 -Maximum Distance (cm) 0.7 -Exudate Amt Medium -Exudate Type Serosanguineous -Wound Margin Distinct, Outline Attached -Granulation Amt Medium (34-66%) Large (67-100%) -Granulation Quality [place] -Necrosis Amt Medium (34-66%) -Necrotic Tissue Type Adherent Slough -Texture (Lorena-wound Skin Appearance) Assessed Assessed -Moisture (Lorena-wound Skin Appearance) Assessed Assessed, Maceration -Color (Lorena-wound Skin Appearance) Assessed Assessed -Temperature (Lorena-wound Skin No Abnormality No Abnormality Appearance) (Pt Warm) (Pt Warm) -Tenderness on Palpation (Lorena-wound No No Skin Appearance) -Ulcer Cleansing Rinsed/ Soap and Water Irrigated with Saline -Foul Odor after Cleansing No No -Anesthetic Used 5% Lidocaine 5% Lidocaine Gel Gel WC - Nurse 2 - General Ulcer CM Notes Start: 03/29/25 10:17 Freq: Status: Active Protocol: Activity Type Activity Date Activity User E-sign Co-sign Detail Recorded Client Recorded Date Recorded By Document 03/29/25 11:15 LIZZY [id number] 03/29/25 11:31 JF Edit Result 03/29/25 11:15 JF (1) [id number] 03/29/25 11:35 JF Document 04/12/25 08:28 JF [id number] 04/12/25 08:28 (1) Right upper back - Post Debridement (cm) - Length => 1.2 - Post Debridement (cm) - Width => 1.2 - Post Debridement (cm) - Depth => 1.5 - Total Square (Post) (cm) => 1.44 - Area of Debridement (cm) - Length => 1.2 - Area of Debridement (cm) - Width => 1.2 - Total Square (Area) (cm) => 1.44 03/29/25 04/12/25 11:15 08:28 Wound Center Nurse 2 Right upper back -Time 11:16 08:28 -Correct Patient Yes Yes -Correct Side, Site, Position Yes Yes -Correct Procedure Yes Yes -Procedure Performed Yes Yes -Type of Procedure Debridement Debridement -Clinical Debridement Subcutaneous -Tissue Removed Subcutaneous Epidermis, Subcutaneous -Post Debridement (cm) - Length 1.2 1 -Post Debridement (cm) - Width 1.2 1 -Post Debridement (cm) - Depth 1.5 1 -Total Square (Post) (cm) 1.44 1 -Area of Debridement (cm) - Length 1.2 1 -Area of Debridement (cm) - Width 1.2 1 -Total Square (Area) (cm) 1.44 1 -Tunneling No No -Undermining/Tunneling No No -Circular Undermining No No -Wound/Ulcer Outcome Not Healed Not Healed -Ulcer Cleansing Rinsed/ Rinsed/ Irrigated with Irrigated with Saline Saline -Foul Odor after Cleansing No No -Bioengineered Tissue No No -Bleeding Controlled with Pressure Pressure -Treatment Response Procedure Procedure Tolerated Well Tolerated Well -Offloading No No -Debridement - Subq, 1st 20sq cm Yes Yes Pain Scale: 0-10 Numeric Is Patient Pain Free? Yes Yes - Nurse 3 - General Ulcer D/C NN Start: 03/29/25 10:17 Freq: Status: Active Protocol: Activity Type Activity Date Activity User E-sign Co-sign Detail Recorded Client Recorded Date Recorded By Document 03/29/25 11:36 KW [id number] 03/29/25 11:38 KW Document 04/12/25 08:36 DS [id number] 04/12/25 08:42 DS 03/29/25 04/12/25 11:36 08:36 Wound Care Center Nurse 3 Right upper back -Ulcer Cleansing Rinsed/ Irrigated with Saline -Primary Dressing Applied C Hydrogel, C Hydrogel, Nugauze, Plain Nugauze, Plain 1/4in 1/4in -Primary Dressing Covered/Secured with Dry Gauze, Dry Gauze, Secured with Secured with Tape Tape -Hydrogel 1 1 -Nugauze, Plain 1/4in 1 0 Pain Scale: 0-10 Numeric Is Patient Pain Free? Yes Yes - Visit Discharge Discharge Condition Stable Stable Ambulatory Status Ambulatory Ambulatory Transportation Private Auto Private Auto Medication Reconcilliation completed & No provided to patient/care provider Clinical Summary of Care Provided Yes Assessment/Plan Assessment/Plan (1) Ulcer of back: CODE(S): L98.429 - Non-pressure chronic ulcer of back with unspecified severity PLAN: Continue twice daily wet-to-dry dressings with saline soaked gauze Follow-up in clinic in 3 weeks Patient making significant progress and no signs of recurrence of the cyst
--- NOTE | 2025-04-13 10:05 | WC ---
PHOTO-RIGHT UPPER BACK 04/12/25
== END 2025-04-20 23:59 | disposition home or self-care (01) ==
LOC: WC 08:00
PROVIDERS: PCP Family Medicine; Referring Provider Dermatology; Visit Provider Surgery Plastic and Reconstructive Surgery
DX: E11.621 Type 2 diabetes mellitus with foot ulcer (principal); L98.422 Non-pressure chronic ulcer of back with fat layer exposed; L73.2 Hidradenitis suppurativa; Z79.84 Long term (current) use of oral hypoglycemic drugs
CPT/HCPCS: 11042

== ENCOUNTER 2025-05-03 08:01 | Outpatient (RCR) | payer BC, SELFPAY ==
[2025-05-03 08:04] VITALS: BP 190/75; PULSE 82; RESP 16; TEMP 35.8
--- NOTE | 2025-05-03 08:24 | PN.PCM_ITS ---
History of Present Illness Date of Service: 05/03/25 History of Wound: The patient is a 64-year-old female presenting with hidr adenitis suppurativa. The condition involves purulent drainage from lesions on the right upper back, persisting for about two months. She has been seeing Dr. Guerrero from [facility] dermatology for the condition, and 2 weeks ago he began her on a course of oral doxycycline and topical clindamycin gel. He referred her to us for definitive management of the sinus tracts. She has a history of diabetes mellitus, with an A1c of 6.7, managed with metformin and Ozempic. Her hypertension is controlled with lisinopril, though she missed her dose on the day of the visit, leading to elevated readings. ROS: - Dermatological: Reports purulent drainage from lesions on the right upper back. - Endocrine: Reports diabetes mellitus, denies recent hypoglycemic episodes. - Cardiovascular: Reports hypertension, denies chest pain or palpitations. Attestation: Documentation on this patient encounter was supported using ambient scribe technology/ voice AI technology. The patient consented to recording for the purpose of documenting the encounter. Provider reviewed content of the generated note prior to signature. Subjective Subjective Current Encounter, 08 Mar 2025: Doing well overall. Has had some drainage from the right upper back wound. 15 Mar 2025: The patient is a 65-year-old female presenting with a dilated pore of Hunter on the right upper back. The condition was identified during a previous biopsy, which revealed a superficial epidermal invagination with hyperkeratosis and proliferative features suggestive of a dilated pore of Hunter. There was no evidence of malignancy observed in the biopsy results. The patient reported that the wound is less inflamed and appears healthier, described as a beefy red wound. The patient has been managing the wound with daily packing using 1/2-inch Iodoform soaked with Dakin's solution, which her assists with at home. The patient is able to shower and let water hit the wound, which has been part of the care routine. ROS: - Integumentary: Reports wound on the right upper back is less inflamed and appears healthier. Attestation: Documentation on this patient encounter was supported using ambient scribe technology/ voice AI technology. The patient consented to recording for the purpose of documenting the encounter. Provider reviewed content of the generated note prior to signature. 29 March 2025 Tolerating dressing changes and her has been helping. No fevers chills or drainage 12 Apr 2025: Doing well overall. Has been compliant with dressing changes and has been getting help from her CURRENT ENCOUNTER, 03 May 2025: Doing well. May be healed. Objective Data Objective Data Vital Signs: Vital Signs Temp Pulse Resp BP 96.5 F L 82 16 190/75 H 05/03/25 08:04 05/03/25 08:04 05/03/25 08:04 05/03/25 08:04 Charges/Coding Visit Charges Office Visits / Consults: 32144 OV L2 Est 10min Physical Exam Narrative Right upper back wound has healed. There is skin over the base of a small divot that has healed in. Debridement Note Debridement Note No debridement was completed: No debridement was completed today Post-Debridement Measurements and Additional Note: Post-Debridement Measurements/Treatment WC - Nurse 1 - General Ulcer Assessment Start: 05/03/25 08:02 Freq: Status: Active Protocol: JOHNNIE Activity Type Activity Date Activity User E-sign Co-sign Detail Recorded Client Recorded Date Recorded By Document 05/03/25 08:04 [id number] 05/03/25 08:08 LIZZY 05/03/25 08:04 - Today's Visit Information Type of service Follow-up Visit (Physician/DETAIL MAKER AND FITTER ) Arrival Mode Ambulatory Patient Identification Verified (Name & No ) Safety Precautions NA Vital Signs Temperature (97.8 F-99.1 F) 96.5 F L Temperature Source Temporal Pulse Rate (60-100) 82 Pulse Location Monitor Respiratory Rate (12-18) 16 Respiratory rate source Observation Blood Pressure (90/60-120/80) 190/75 H Blood Pressure Mean (mm Hg) 113 Source Monitor Position Semi-Fowlers Blood Pressure Location Right Arm History Since Last Visit- (Skip if this is Patient's initial visit) Have you changed medications since your Yes last visit? Any new allergies or adverse reactions No Had a fall/change in ADL's that may No increase risk of falls Signs or symptoms of abuse and/or No neglect since last visit Have you been in the hospital since your No last visit? Has dressing in place as prescribed Yes Has compression in place as prescribed N/A Has offloadiing in place as prescribed N/A Experienced any changes in pain level or No management Left Footwear Slipper Right Footwear Slipper Pain Scale: 0-10 Numeric Is Patient Pain Free? Yes WC - Nurse 1 - General Ulcer Measurement Start: 05/03/25 08:02 Freq: Status: Active Protocol: Activity Type Activity Date Activity User E-sign Co-sign Detail Recorded Client Recorded Date Recorded By Document 05/03/25 08:04 LIZZY [id number] 05/03/25 08:08 LIZZY 05/03/25 08:04 Wound Center Nurse 1 Right upper back -Combined with other wound No -Current Size (cm) - Length 0.1 -Current Size (cm) - Width 0.1 -Current Size (cm) - Depth 0.1 -Total Square Cm 0.01 -Photo Taken Yes -Epithelialization Large 67-100% -Tunneling No -Undermining/Tunneling No -Circular Undermining No -Exudate Amt None Present -Wound Margin Well Defined, Not Attached -Granulation Amt None Present (0 %) -Slough/Fibrin No -Structure Exposed N/A -Texture (Lorena-wound Skin Appearance) Scarring -Moisture (Lorena-wound Skin Appearance) Dry/Scaly -Color (Lorena-wound Skin Appearance) Assessed -Temperature (Lorena-wound Skin No Abnormality Appearance) (Pt Warm) -Tenderness on Palpation (Lorena-wound No Skin Appearance) -Ulcer Cleansing Rinsed/ Irrigated with Saline -Foul Odor after Cleansing No Lower Limb Edema Present NA Assessment/Plan Assessment/Plan (1) Ulcer of back: CODE(S): L98.429 - Non-pressure chronic ulcer of back with unspecified severity PLAN: Healed Discussed return precautions Discussed lotion. Divot will soften out as edges contract/mature scar forms. F/u as needed.
--- NOTE | 2025-05-05 13:49 | WC ---
PHOTO-RIGHT UPPER BACK 05/03/25
== END 2025-05-03 10:31 | disposition home or self-care (01) ==
LOC: WC 08:01
PROVIDERS: PCP Family Medicine; Referring Provider Dermatology; Visit Provider Surgery Plastic and Reconstructive Surgery
DX: Z09 Encounter for follow-up examination after completed treatment for conditions other than malignant neoplasm (principal); E11.9 Type 2 diabetes mellitus without complications; I10 Essential (primary) hypertension; Z79.84 Long term (current) use of oral hypoglycemic drugs; Z79.899 Other long term (current) drug therapy
CPT/HCPCS: 99212; G0463

== ENCOUNTER → 2025-06-23 | Outpatient (CLI) | payer BC, SELFPAY ==
[2025-06-23 15:42] LABS: Creatinine, Urine (random) 80.50 mg/dL (28.00-217.00); Microalbumin,Random Urine 26.2 mg/L (<20 mg/L)
[2025-06-23 15:53] LABS: AST(SGOT) 26 U/L (<=31); Alanine Aminotransfer ALT/SGPT 23 U/L (<=34); Albumin, Serum 4.1 g/dL (3.4-4.8); Alkaline Phosphatase 79 U/L (35-104); Anion Gap 13 (5-15); BUN 15 mg/dL (4-19); BUN/Creat Ratio 17.2 RATIO (10-20); Calcium,Total 10.4 mg/dL (7.6-11.0); Carbon Dioxide 27.3 mmol/L (21.0-32.0); Chloride 100 mmol/L (98-108); Cholesterol 184 mg/dL (<=200); Globulin 4.1 g/dL (2.2-4.2); Glucose 132 mg/dL (70-99); Low Density Lipoprotein Calc. 97 mg/dL; Potassium 4.0 mmol/L (3.3-5.1); Triglycerides 133 mg/dL; Uric Acid 5.2 mg/dL (2.6-6.0); Very Low Density Lipoprotein 27 mg/dL (5-40); Vitamin D,25 Hydroxy 84.8 ng/mL (30-100); cholesterol:hdl ratio screen 2.89
== END | disposition home or self-care (01) ==
LOC: MFPLAB 11:58
PROVIDERS: PCP Family Medicine; Visit Provider Family Medicine
DX: Z00.00 Encounter for general adult medical examination without abnormal findings (principal); M10.9 Gout, unspecified; E11.9 Type 2 diabetes mellitus without complications
CPT/HCPCS: 36415; 80053; 80061; 82043; 82306; 82570; 84443; 84550